=== PATIENT | female | born 1960 | race Caucasian/White ===

== ENCOUNTER → 2016-06-06 | Outpatient (CLI) | payer BC, OTHER ==
--- NOTE | 2016-06-06 10:46 | XR ---
EXAMINATION TYPE: XR shoulder complete BILAT DATE OF EXAM: 06/06/2016 10:35 AM COMPARISON: NONE HISTORY: Pain TECHNIQUE: Three views are submitted. FINDINGS: The osseous structures are intact. There is no acute fracture or dislocation. Moderate AC joint arth ropathy bilaterally. Mild glenohumeral arthropathy bilaterally. Sclerotic lesion right femoral diaphysis compatible with bone infarct. IMPRESSION: 1. The AC joint arthropathy bilaterally 2. Right humeral bone infarct
--- NOTE | 2016-06-06 10:50 | XR ---
EXAMINATION TYPE: XR hand complete RT DATE OF EXAM: 06/06/2016 10:35 AM COMPARISON: NONE HISTORY: Pain TECHNIQUE: Three views are submitted. FINDINGS: The osseous structures are intact. The joint spaces are preserved and there is no acute fracture or dislocation. IMPRESSION: 1. No definite acute fracture or dislocation if symptoms persist, follow-up study in 7 to 10 days wo uld be suggested
--- NOTE | 2016-06-06 10:55 | XR ---
EXAMINATION TYPE: XR foot complete bilateral DATE OF EXAM: 06/06/2016 10:35 AM COMPARISON: NONE HISTORY: Chronic pain TECHNIQUE: 3 views each foot. FINDINGS: Bilateral demonstrate severe arthropathy first MTP joint. Extensive postsurgical change involving the region of the tarsometatarsal junction within the ankle joint. Large plantar calcaneal spur bilatera lly. IMPRESSION: 1. Extensive postsurgical changes bilaterally with severe first MTP joint arthropathy bilaterally.
== END | disposition home or self-care (01) ==
LOC: RADXRMAIN 09:49
PROVIDERS: ATTEND Psychiatry & Neurology Neurology
DX: M19.012 Primary osteoarthritis, left shoulder (principal); M19.011 Primary osteoarthritis, right shoulder; M19.072 Primary osteoarthritis, left ankle and foot; M19.071 Primary osteoarthritis, right ankle and foot; M79.641 Pain in right hand
CPT/HCPCS: 97597

== ENCOUNTER → 2016-06-11 | Outpatient (CLI) | payer BC, OTHER ==
--- NOTE | 2016-06-11 22:52 | MR ---
EXAMINATION TYPE: MR robert/lspine wo con DATE OF EXAM: 06/11/2016 9:52 PM COMPARISON: CT abdomen pelvis January 06, 2016 HISTORY: Cervicalgia, Lumbago per order. Headaches with neck pain causing pain or weakness in right a rm and fingers per patient. Low back pain causing pain into bilateral buttocks thigh and calf per pat ient TECHNIQUE: Multiplanar, multisequence imaging of the cervical and lumbar spine are performed without IV contrast. FINDINGS: C-SPINE: FINDINGS: Sagittal images of the cervical spine show the craniocervical junction to appear within nor mal limits. The cervical and upper thoracic spinal cord is normal in caliber and signal. Vertebral alignment is straightened. The vertebral body heights are normal. There is mild disc space narrowing with moderate spurring C5-C6 and C6-C7 levels. Posterior disc herniations are effacing anterior thec al sac at these levels on sagittal images. The bone marrow signal intensity is within normal limits. Axial images show the C2-C3 and C3-C4 levels to appear within normal limits. Axial images at C4-C5 level show left marginal spurring causing asymmetric moderate left-sided neural foraminal narrowing on axial image 30, right-sided neural foramen is patent. Axial images at C5-C6 level show broad-based right paracentral disc protrusion effacing anterior thec al sac up to ventral surface of spinal cord with some marginal spurring causing advanced left and mil d to moderate right-sided neural foraminal narrowing. Axial images at C6-C7 level show broad-based left paracentral disc protrusion effacing anterior theca l sac up to ventral surface of spinal cord on axial image 13. There is moderate to severe left and mi ld to moderate right-sided neural foraminal narrowing at this level identified. Axial images at C7-T1 level are felt within normal limits. IMPRESSION: Straightening of cervical spine with multilevel degenerative changes as detailed above mo st prominent at C5-C6 and C6-C7 levels. L-SPINE: Sagittal images of the lumbar spine redemonstrates mild height loss or anterior wedging at L1 level. Alignment remains satisfactory. Multilevel disc desiccation is seen but disc space heights are fairly well-maintained. Small posterior disc herniations are seen L4-L5 and L5-S1 levels on sagittal images . The conus medullaris is normal in position and signal ending at inferior L1 vertebral body level. There is prominent hemangioma at T12 vertebral body level. There is mild to moderate multilevel anter ior spurring. Some heterogeneous endplate changes with increased T1 and T2 signal anterior superior L 2 and L3 vertebra consistent with Modic type II degenerative change is present. Axial images show the T12-L1, L1-L2, and L2-L3 levels all to appear within normal limits. Axial images at L3-L4 level show mild broad disc bulge and mild facet degenerative changes bilaterall y but spinal canal is preserved and bilateral neural foramina are patent. Axial images at L4-L5 level shows moderate facet degenerative changes and ligamentum flavum hypertrop hy with broad-based central disc protrusion effacing anterior thecal sac on axial image 8. Bilateral neural foramina are patent. Axial images at the L5-S1 level show mild facet degenerative changes bilaterally. There is small cent ral disc protrusion seen but spinal canal is preserved. Bilateral neural foramina are patent. There is left adrenal mass measuring 3.0 x 2.4 cm on axial image 30 likely stable in size from recent CT. IMPRESSION: Some multilevel degenerative changes in the lumbar spine most prominent in lower lumbar l evels with further details as noted in body of report.
== END | disposition home or self-care (01) ==
LOC: RADMRIMAIN 20:48
PROVIDERS: ATTEND Psychiatry & Neurology Pain Medicine
DX: M54.2 Cervicalgia (principal); M54.5 Low back pain
CPT/HCPCS: 72141; 72148

== ENCOUNTER 2016-06-22 09:58 | Day surgery (SDC) | payer BC, OTHER ==
--- NOTE | 2016-06-22 09:56 | P.GSHP ---
History of Present Illness H&P Date: 06/22/16 Chief Complaint: Ulceration abdominal wall This patient is status post colostomy for diverticulitis with abscess. The vagus colostomy site has never totally healed and remains a small draining fistulous ulcer. She also has a midline incisional hernia. - Constitutional Constitutional: Reports weakness, Denies chills, Denies fever - EENT Eyes: denies blurred vision, denies pain Ears, nose, mouth and throat: Denies headache, Denies sore throat - Cardiovascular Cardiovascular: Reports high blood pressure, Denies chest pain, Denies irregular heart beat, Denies orthopnea, Denies paroxysmal nocturnal dyspnea, Denies shortness of breath - Respiratory Respiratory: Denies cough, Denies hemoptysis - Gastrointestinal Gastrointestinal: Denies abdominal pain, Denies coffee ground emesis, Denies diarrhea, Denies hematemesis, Denies jaundice, Denies melena, Denies nausea, Denies vomiting - Genitourinary (Female) Genitourinary: Denies dysuria, Denies hematuria - Genitourinary (Male) Genitourinary: Denies dysuria, Denies hematuria - Musculoskeletal Comment: Patient is very poorly ambulatory secondary to numerous orthopedic issues both spinal and lower extremity. Musculoskeletal: Reports gait dysfunction, Denies myalgias - Integumentary Comment: Anterior abdominal wall fistulous track Integumentary: Denies pruritus, Denies rash - Neurological Neurological: Denies numbness, Denies weakness - Psychiatric Psychiatric: Denies anxiety, Denies depression - Endocrine Endocrine: Denies fatigue, Denies weight change - Hematologic/Lymphatic Hematologic/Lymphatic: Denies easy bleeding, Denies easy bruising, Denies lymphedema - Allergic/Immunologic Allergic/Immunologic: Denies anaphylaxis, Denies angioedema, Denies urticaria Past Medical History Past Medical History: Asthma, Diabetes Mellitus, Eye Disorder, GERD/Reflux, Hyperlipidemia, Hypertension, Osteoarthritis (OA), Pneumonia, Vascular Disorder Additional Past Medical History / Comment(s): IDDM type II, diverticulitis, diverticulosis,, 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 pt has allergy to dust,feathers and heavy scents like perfume/ cleaning, neuropathy bilateral hands and feet, superficial blood clots arms and legs-not DVTs. History of Any Multi-Drug Resistant Organisms: None Reported Past Surgical History: Appendectomy, Bowel Resection, Orthopedic Surgery Additional Past Surgical History / Comment(s): 9 foot sx-had bone deformities- had 2 tiny bone removed rt foot,has 11 screws lt foot and 9 screws in rt foot, egd, lt shoulder injured had arthroscopic sx and repaired ligamnets, removed bone spurs removed and repaired cartilage, rt hand 5th fingger-trigger finger sx , rt middle finger rt hand-benign tumor removed, laproscopy, fallopian tubes removed. 2 picc lines - since removed, 05/05/15 colectomy with colostomy, colostomy reversal, cryogenic tx for precancerous skin lesions. Past Anesthesia/Blood Transfusion Reactions: Family History of Problems w/ Anesthesia, Family Hisory of Malignant Hyperthermia, Postoperative Nausea & Vomiting (PONV) Additional Past Anesthesia/Blood Transfusion Reaction / Comment(s): cluasterphobia States her mother had malignant hyperthermia Past Psychological History: Depression Additional Psychological History / Comment(s): She lives with her significant other. She uses a walker with seat and wheels to ambulate. She has [facility] with a nurse coming once a week. Smoking Status: Former smoker Past Alcohol Use History: None Reported Additional Past Alcohol Use History / Comment(s): started smoking at age 10 smoked 1/2 -1 ppd, quit 2013 Past Drug Use History: None Reported - Past Family History Mother Family Medical History: Cancer, Thyroid Disorder Additional Family Medical History / Comment(s): thyroid/lung cancer. Mother of lung cancer at age 80 Father Family Medical History: Congestive Heart Failure (CHF), Diabetes Mellitus, Deep Vein Thrombosis (DVT), Pulmonary Embolus Additional Family Medical History / Comment(s): Father of diabetic complications at age 64. Medications and Allergies Home Medications Medication Instructions Recorded Confirmed Type Albuterol Sulfate [Proair Hfa] 2 puff INHALATION RT-Q6H PRN 04/07/15 06/20/16 History Ergocalciferol [Vitamin D2 50,000 unit PO TUTH 04/07/15 06/20/16 History (DRISDOL)] Montelukast [Singulair] 10 mg PO HS 04/07/15 06/20/16 History Triamterene-Hctz 75-50Mg [Maxzide 1 tab PO DAILY 04/07/15 06/20/16 History 75-50] glipiZIDE [Glucotrol XL] 5 mg PO BID 04/07/15 06/20/16 History metFORMIN HCL [metFORMIN HCL ER] 1,000 mg PO BID 04/07/15 06/20/16 History diphenhydrAMINE [Benadryl] 25 mg PO Q6H PRN 05/03/15 06/20/16 History Dicyclomine [Bentyl] 10 mg PO ACHS 07/19/15 06/20/16 History Fluticasone Propionate 2 spray EA NOSTRIL BID 07/19/15 06/20/16 History Glucerna Shake 1 can PO BID 07/19/15 06/20/16 History Morphine Sulfate ER [Ms Contin] 15 mg PO BID 07/19/15 06/20/16 History Nystatin 100,000 Unit/gm Powd 1 applic TOPICAL BID 07/19/15 06/20/16 History [Mycostatin Powder] Ondansetron [Zofran] 4 mg PO DAILY PRN 07/19/15 06/20/16 History Polyethylene Glycol 3350 [Miralax] 17 gm PO DAILY 05/02/16 06/20/16 History oxyCODONE-APAP 10-325MG [Percocet 1 tab PO DAILY PRN 05/02/16 06/20/16 History 10-325 mg] ALPRAZolam [Xanax] 1 mg PO BID 06/20/16 06/20/16 History Allergies Allergy/AdvReac Type Severity Reaction Status Date / Time adhesive tape Allergy Severe Itching Verified 06/20/16 12:22 aspirin Allergy Dyspnea Verified 06/20/16 12:22 ceftriaxone sodium Allergy Anaphylaxis Verified 06/20/16 12:22 [From Rocephin] cephalexin monohydrate Allergy Anaphylaxis Verified 06/20/16 12:22 [From Keflex] Penicillins Allergy Anaphylaxis Verified 06/20/16 12:22 Surgical - Exam Osteopathic Statement: *. No significant issues noted on an osteopathic structural exam other than those noted in the History and Physical/Consult. - General well developed, well nourished, no distress, obese - Eyes normal ocular movement, no icteric - ENT no hearing loss, no congestion - Neck no masses, no bruits, trachea midline - Respiratory normal expansion, normal respiratory effort, clear to auscultation - Cardiovascular Rhythm: regular - Abdomen Abdomen: soft, non tender, no guarding, no rigid, no rebound - Integumentary Patient has a 0.5 x 0.5 cm ulceration in the anterior abdominal wall which probes to 2 and half centimeters. There is very mild serous drainage no rash, no abnormal pigmentation - Neurologic no disoriented, no combative - Musculoskeletal Patient is minimally ambulatory due to movement numerous musculoskeletal issues - Psychiatric oriented to time, oriented to person, oriented to place, speech is normal, memory intact Assessment and Plan (1) Abdominal wall ulcer Status: Acute Plan: We've discussed with the patient the options. Our plan for today is to excise the fistulous tract which appears to be fairly superficial and to remove the non -healthy granulation tissue and preferably do a primary closure. This does appear to be very separate from her abdominal incisional hernia. We see no evidence of connection to deeper tissues. Patient appears understand the procedures risks and wishes to proceed.
[~2016-06-22 09:58] MED LIST: CLINDAMYCIN 900 MG in DEXTROSE 5% IN WATER 50 ML IVPB ONE; DEXAMETHASONE SOD PHOSPHATE 10 MG/ML 1 ML VIAL IV ONE; GENTAMICIN 320 MG in SODIUM CHLORIDE 0.9% 100 ML IVPB ONE; LACTATED RINGERS 1,000 ML IV SCH; LIDOCAINE 1% 20 ML VIAL (10MG/ML) FOR IV START INTRADERMA PRN; MIDAZOLAM 2 MG/2 ML VIAL IV PRN; ONDANSETRON 4 MG/2 ML VIAL IVP ONE; SCOPOLAMINE 1.5MG/72HR PATCH TRANSDERM ONE
[2016-06-22 10:29] LABS: Glucose,Whole Blood 153 mg/dL (75-99)
[2016-06-22 10:30] VITALS: RESP 16
[2016-06-22] MEDS ORDERED: LIDOCAINE 1% 20 ML VIAL (10MG/ML) FOR IV START INTRADERMA ONE (10:32)
[2016-06-22] MEDS ORDERED: PROPOFOL 10 MG/ML 20 ML VIAL IV ONE (10:50)
[2016-06-22] MEDS ORDERED: MIDAZOLAM 2 MG/2 ML VIAL ONE (10:50)
[2016-06-22] MEDS ORDERED: fentaNYL (PF) 50 MCG/ML 2 ML AMP ONE (10:50)
--- NOTE | 2016-06-22 11:37 | P.PCN ---
Date of Procedure: 06/22/16 Preoperative Diagnosis: Nonhealing fistulous ulceration anterior abdominal wall Postoperative Diagnosis: Same Procedure(s) Performed: Excision of fistulous tract/debridement anterior abdominal wall with primary closure Anesthesia: MAC Surgeon: Dejuan Toledo IV fluids (ml): 30 Pathology: other (Fistulous tract sent for cultures) Condition: stable Disposition: PACU Indications for Procedure: Patient has a chronic unresolving ulcer of the left anterior abdominal wall. Operative Findings: We excised the entire fistulous tract. The surrounding tissues appeared healthy without obvious evidence of external source for the fistulous tract except within the excised tissue. Description of Procedure: With the patient supine position, under benefit of IV sedation, we prepped and draped in standard fashion. We made an elliptical incision around the fistulous tract horizontally. We took this sharply down through fatty tissues on both sides. This was then carried on further with electrocautery until we reached an area just superficial to the fascia. We then completely excised the entire cone of tissue. Hemostasis was accomplished with electrocautery and was excellent. The fatty tissue was approximated with 4-0 Vicryl interrupted stitches. The skin was approximated with 4-0 Vicryl subcuticular. Sterile dressings were applied. The patient tolerated the procedure well and was to taken to the recovery room in stable condition.
[2016-06-22 11:38] VITALS: TEMP 97.5
[2016-06-22 11:42] LABS: Glucose,Whole Blood 143 mg/dL (75-99)
[2016-06-22] MEDS: HYDROmorphone 1 MG/ML 1 ML SYRINGE IVP PRN ×4 (11:42→11:54)
[2016-06-22] MEDS ORDERED: diphenhydrAMINE 50 MG/ML 1 ML VIAL IVP ONE (11:52)
[2016-06-22 13:20] VITALS: BP 114/71; PULSE 56
== END 2016-06-22 13:26 | disposition home or self-care (01) ==
LOC: OR 09:58
PROVIDERS: ATTEND Thoracic Surgery (Cardiothoracic Vascular Surgery)
DX: L98.499 Non-pressure chronic ulcer of skin of other sites with unspecified severity (principal); J45.909 Unspecified asthma, uncomplicated; E11.9 Type 2 diabetes mellitus without complications; K21.9 Gastro-esophageal reflux disease without esophagitis; E78.5 Hyperlipidemia, unspecified; I10 Essential (primary) hypertension; M19.90 Unspecified osteoarthritis, unspecified site; G89.29 Other chronic pain; Z79.84 Long term (current) use of oral hypoglycemic drugs; Z79.891 Long term (current) use of opiate analgesic; Z79.899 Other long term (current) drug therapy; Z88.1 Allergy status to other antibiotic agents; Z88.0 Allergy status to penicillin; Z88.8 Allergy status to other drugs, medicaments and biological substances; Z91.048 Other nonmedicinal substance allergy status; Z87.891 Personal history of nicotine dependence
CPT/HCPCS: 87070; 87205; 87075; 11042; J2250; J1200; J1100; J2405; J3010; J1580; J1170; J2704

== ENCOUNTER 2016-08-23 14:17 | Inpatient (IN) | payer OTHER ==
[2016-08-23 15:54] LABS: Basophils % (A) 0 %; CH 32.4; CHCM 34.9; Eosinophils # (A) 0.2 k/uL (0-0.7); Eosinophils % (A) 2 %; HCT 39.8 % (34.0-46.0); HDW 2.84; HGB 13.7 gm/dL (11.4-16.0); Luc # (Auto) 0.39; Luc % (Auto) 4; Lymphocytes # (A) 2.2 k/uL (1.0-4.8); Lymphocytes % (A) 21 %; MCH 32.2 pg (25.0-35.0); MCHC 34.4 g/dL (31.0-37.0); MCV 93.3 fL (80.0-100.0); Mean Platelet Volume 7.3; Monocytes # (A) 0.5 k/uL (0-1.0); Monocytes % (A) 5 %; Neutrophils # (A) 6.9 k/uL (1.3-7.7); Neutrophils % (A) 68 %; RBC 4.27 m/uL (3.80-5.40); WBC 10.2 k/uL (3.8-10.6); WBC (Perox) 10.68
[2016-08-23 16:04] LABS: Potassium 3.7 mmol/L (3.5-5.1); Total Bilirubin 0.6 mg/dL (0.2-1.3); Total Protein 8.3 g/dL (6.3-8.2)
[2016-08-23] MEDS: MORPHINE SULFATE 2 MG/ML SYRINGE IVP PRN ×2 (16:14→20:38)
[2016-08-23] MEDS: SODIUM CHLORIDE 0.9% 1,000 ML IV SCH (16:15)
[2016-08-23] MEDS ORDERED: diphenhydrAMINE 50 MG/ML 1 ML VIAL IVP PRN (16:27)
[2016-08-23] MEDS ORDERED: RX INFO: IV CONTRAST WAS GIVEN 1 EACH MISC MISCELLANE PRN (16:28)
[2016-08-23 16:35] LABS: Glucose,Whole Blood 106 mg/dL (75-99)
[2016-08-23] MEDS: IOHEXOL 350 MG/ML 25 ML BOTTLE (ORAL USE) PO PRN ×2 (16:59→18:23)
[2016-08-23 17:32] VITALS: BMI 32.9
[2016-08-23 19:51] LABS: Hemoglobin A1C 6.5 % (4.2-6.1)
[2016-08-23 20:03] LABS: Glucose,Whole Blood 96 mg/dL (75-99)
--- NOTE | 2016-08-23 20:03 | CT ---
EXAMINATION TYPE: CT abdomen pelvis wo/w con DATE OF EXAM: 08/23/2016 7:33 PM COMPARISON: 01/06/2016 HISTORY: Possible abscess or ileus. Left lower quadrant pain with diarrhea. Known pancreatic and adre nal mass. CT DLP: 2062.70 mGycm Automated exposure control for dose reduction was used. TECHNIQUE: Helical acquisition of images was performed from the lung bases through the pelvis. CONTRAST: Performed with Oral Contrast and without and with IV Contrast, patient injected with 80 mL of Visipaq ue 320. FINDINGS: Lung bases are clear of infiltrate. There is no pleural effusion. There is slight decreased density i n the liver consistent with some fatty infiltration. Spleen appears normal. I see no pancreatic mass. Gallbladder appears normal. Bile ducts are not dilated. There is a 3.5 cm rounded mass on the left a drenal gland. There is no hydronephrosis. Kidneys have normal size and contour. There is no retroperi toneal adenopathy. There is ventral hernia that contains loops of bowel. There is no evidence of inca rceration. There is no ascites. Bladder is almost empty. There is deformity of mid sigmoid colon with surgical clips. There is a short segment of mildly dilated sigmoid colon. This measures 5 cm. Dilati on is decreased compared to old CT scan. This measures 6.5 cm on the old exam. There is evidence of s mall right renal cortical cysts. There is no ascites. I see no bony destructive process. There is 20% compression of the L1 vertebra. This is unchanged. There appears to be some diffuse wall thickening involving the cecum and proximal ascending colon. So me of this could be retained fecal material. IMPRESSION: THERE IS OLD MILD COMPRESSION FRACTURE OF L1 WITHOUT CHANGE. THERE IS A SHORT SEGMENT OF MILDLY DILATED SIGMOID COLON THAT IS IMPROVED COMPARED TO LAST EXAM. KATHYA ELATION WITH SURGICAL HISTORY IS RECOMMENDED. LARGE BROAD-BASED VENTRAL HERNIA WITHOUT EVIDENCE OF INCARCERATION WITHOUT SIGNIFICANT CHANGE. POSSIBLE WALL THICKENING INVOLVING THE CECUM. THIS COULD BE A CHANGE COMPARED TO LAST EXAM. REPEAT EX AM WITH BETTER BOWEL PREPARATION WOULD BE HELPFUL IF CLINICALLY INDICATED. CECAL EDEMA CANNOT BE EXCL UDED. FATTY INFILTRATION OF THE LIVER. STABLE LEFT ADRENAL MASS HAS RELATIVELY LOW DENSITY AND WOULD BE CON SISTENT WITH BENIGN TUMOR. SMALL RIGHT RENAL CYSTS.
[2016-08-23 21:57] LABS: Appearance,Urine Clear (Clear); Bilirubin,Urine Negative (Negative); Glucose,Urine (UA) Negative (Negative); Ketones,Urine Negative (Negative); Leukocyte Esterase,Urine Negative (Negative); Nitrite,Urine Negative (Negative); PH, Urine 5.5 (5.0-8.0); Protein,Urine Trace (Negative); UA Billing (MACRO vs. MICRO) CHEM; Urobilinogen,Urine <2.0 mg/dL (<2.0)
[2016-08-23 22:03] LABS: Specific Gravity,Urine >1.050 (1.001-1.035)
[2016-08-23] MEDS: ONDANSETRON 4 MG/2 ML VIAL IVP PRN (22:21)
[2016-08-23] MEDS: FAMOTIDINE 20 MG/2 ML VIAL IV SCH (22:25)
[2016-08-23 23:57] LABS: Glucose,Whole Blood 100 mg/dL (75-99)
[2016-08-24] MEDS: INSULIN LISPRO (humaLOG) 300 UNIT/3 ML VIAL SQ SCH ×5 (00:04→21:12)
[2016-08-24] MEDS: MORPHINE SULFATE 2 MG/ML SYRINGE IVP PRN ×2 (03:51→08:44)
[2016-08-24] MEDS: ONDANSETRON 4 MG/2 ML VIAL IVP PRN ×3 (04:01→22:53)
[2016-08-24] MEDS: SODIUM CHLORIDE 0.9% 1,000 ML IV SCH ×2 (04:08→16:30)
[2016-08-24 05:59] LABS: Glucose,Whole Blood 131 mg/dL (75-99)
[2016-08-24 07:42] LABS: Basophils % (A) 0 %; CH 32.2; CHCM 33.4; Eosinophils # (A) 0.2 k/uL (0-0.7); Eosinophils % (A) 3 %; HCT 39.1 % (34.0-46.0); HDW 2.66; HGB 13.3 gm/dL (11.4-16.0); Luc # (Auto) 0.31; Luc % (Auto) 4; Lymphocytes % (A) 25 %; MCH 33.1 pg (25.0-35.0); MCHC 34.2 g/dL (31.0-37.0); MCV 96.8 fL (80.0-100.0); Mean Platelet Volume 7.7; Monocytes # (A) 0.5 k/uL (0-1.0); Monocytes % (A) 6 %; Neutrophils # (A) 4.9 k/uL (1.3-7.7); Neutrophils % (A) 62 %; RBC 4.04 m/uL (3.80-5.40); RDW 13.2 % (11.5-15.5); WBC 7.9 k/uL (3.8-10.6); WBC (Perox) 8.13
[2016-08-24] MEDS: FAMOTIDINE 20 MG/2 ML VIAL IV SCH (08:44)
[2016-08-24] MEDS ORDERED: ALBUTEROL NEBULIZED 2.5 MG/3 ML INHALATION PRN (09:16)
[2016-08-24] MEDS: oxyCODONE-APAP 10-325MG 1 EACH TAB PO PRN ×3 (10:43→22:53)
[2016-08-24 11:44] LABS: Glucose,Whole Blood 165 mg/dL (75-99)
[2016-08-24] MEDS ORDERED: FLUTICASONE 50MCG/SPRAY NASAL 16GM EA NOSTRIL PRN ×2 (11:49→12:02)
[2016-08-24] MEDS: DICYCLOMINE 20 MG TAB PO SCH ×3 (12:25→20:19)
[2016-08-24] MEDS ORDERED: MORPHINE SULFATE ER 15 MG TABLET PO ONE (12:29)
[2016-08-24] MEDS ORDERED: METHYL SALICYLATE/MENTHOL CREAM 5 OZ TOPICAL PRN (12:58)
--- NOTE | 2016-08-24 14:17 | P.GSCN ---
History of Present Illness Consult date: 08/24/16 Reason for Consult: Abdominal pain Requesting physician: Junior Delgado History of present illness: A 56-year-old female being seen at the request of the attending for surgical eval in a patient with a chief complaint of abdominal pain with a large ventral hernia. Patient states that she was being seen in Dr. Delgado's office on the . Patient stated the office visit was to be evaluated for patient having episodes of abdominal distention felt like it was due to the ventral hernia. Had been ongoing for several weeks. Patient stated that she was seen in the office was advised admission to the hospital to be worked up for the large ventral hernia. Patient did have a CAT scan done on the 23 of August that showed a large ventral hernia without evidence of incarceration without any significant change. Patient states has been followed by Dr. Priest at the wound care center was seen on July 10 for debridement of an ulcer on the sacral coccyx area. Additionally patient states that she has had a ventral hernia but has noted over the last several weeks with any activity "it bulges out" patient stated that she was told to wear an abdominal binder did attempt to obtain a binder but it did not fit properly so she has not did not wear it patient denies any nausea vomiting or change in bowel habits Patient has multiple medical problems has an extensive surgical history. On 07/2015 patient had a colectomy with a colostomy for perforated diverticulitis. Patient underwent a reversal of colostomy done done on 07/22/2015 patient developed a small decubitus ulcer in May 2016 was followed by the wound care center with Dr. 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 pt has allergy to dust,feathers and heavy scents like perfume/ cleaning, neuropathy bilateral hands and feet, superficial blood clots arms and legs-not DVTs. WOUND TO COCCYX History of Any Multi-Drug Resistant Organisms: None Reported Past Surgical History: Appendectomy, Bowel Resection, Orthopedic Surgery Additional Past Surgical History / Comment(s): 9 foot sx-had bone deformities- had 2 tiny bone removed rt foot,has 11 screws lt foot and 9 screws in rt foot, egd, lt shoulder injured had arthroscopic sx and repaired ligamnets, removed bone spurs removed and repaired cartilage, rt hand 5th fingger-trigger finger sx , rt middle finger rt hand-benign tumor removed, laproscopy, fallopian tubes removed. 2 picc lines - since removed, 05/05/15 colectomy with colostomy, colostomy reversal, cryogenic tx for precancerous skin lesions. Ostomy site surgically closed Past Anesthesia/Blood Transfusion Reactions: Family History of Problems w/ Anesthesia, Postoperative Nausea & Vomiting (PONV) Additional Past Anesthesia/Blood Transfusion Reaction / Comm: claustrophobia Past Psychological History: Depression Additional Psychological History / Comment(s): She lives with her significant other. She uses a cane/ walker/wheelchair with seat and wheels to ambulate. She has [facility] with a nurse coming once a week. Smoking Status: Former smoker Past Alcohol Use History: None Reported Additional Past Alcohol Use History / Comment(s): started smoking at age 10 smoked 1/2 -1 ppd, quit 2013 Past Drug Use History: None Reported - Past Family History Mother Family Medical History: Cancer, Thyroid Disorder Additional Family Medical History / Comment(s): thyroid/lung cancer. Mother of lung cancer at age 80 Father Family Medical History: Congestive Heart Failure (CHF), Diabetes Mellitus, Deep Vein Thrombosis (DVT), Pulmonary Embolus Additional Family Medical History / Comment(s): Father of diabetic complications at age 64. Medications and Allergies Home Medications Medication Instructions Recorded Confirmed Type Ergocalciferol [Vitamin D2 50,000 unit PO TUTH 04/07/15 08/23/16 History (DRISDOL)] Montelukast [Singulair] 10 mg PO HS 04/07/15 08/23/16 History Triamterene-Hctz 75-50Mg [Maxzide 1 tab PO DAILY 04/07/15 08/23/16 History 75-50] glipiZIDE [Glucotrol XL] 5 mg PO BID 04/07/15 08/23/16 History Dicyclomine [Bentyl] 5 mg PO ACHS 07/19/15 08/23/16 History Fluticasone Propionate 2 spray EA NOSTRIL BID PRN 07/19/15 08/23/16 History Morphine Sulfate ER [Ms Contin] 15 mg PO BID 07/19/15 08/23/16 History Ondansetron [Zofran] 4 mg PO BID 07/19/15 08/23/16 History ALPRAZolam [Xanax] 1 mg PO BID 06/20/16 08/23/16 History Insulin Glargine,Hum.rec.anlog 15 units SQ HS 07/26/16 08/23/16 History [Togiuliana Solostar] metFORMIN HCL [Metformin HCl] 1,000 mg PO BID 08/23/16 08/23/16 History oxyCODONE-APAP 10-325MG [Percocet 1 tab PO QID PRN 08/23/16 08/23/16 History 10-325 mg] Allergies Allergy/AdvReac Type Severity Reaction Status Date / Time adhesive tape Allergy Severe Itching Verified 08/23/16 15:56 asparagus Allergy Wheezing Verified 08/23/16 15:56 aspirin Allergy Dyspnea Verified 08/23/16 15:56 ceftriaxone sodium Allergy Anaphylaxis Verified 08/23/16 15:56 [From Rocephin] cephalexin monohydrate Allergy Anaphylaxis Verified 08/23/16 15:56 [From Keflex] Penicillins Allergy Anaphylaxis Verified 08/23/16 15:56 perfume Allergy Wheezing Verified 08/23/16 15:56 DUST Allergy Wheezing Uncoded 08/23/16 15:56 HAY Allergy Wheezing Uncoded 08/23/16 15:56 Surgical - Exam Vital Signs Temp Pulse Resp BP Pulse Ox 98.3 F 99 16 129/78 98 08/23/16 15:00 08/23/16 15:00 08/23/16 15:00 08/23/16 15:00 08/23/16 15:00 GENERAL APPEARANCE: 56-year-old female patient is alert, oriented, in no acute distress. Up ambulating once in the hallway with a walker VITAL SIGNS: Reviewed HEENT: Head is normocephalic and atraumatic. Pupils are equal and reactive. The nares are patent. Oropharynx is clear without lesions. NECK: Supple without lymphadenopathy. Traches midline. HEART: S1, S2. Regular rate and rhythm. Denying chest pain no murmur LUNGS: No crackles or wheezes are heard. Adequate air movement on room air ABDOMEN: Soft, nontender, nondistended with good bowel sounds. No peritoneal signs. No palpable organomegaly or masses. Large ventral hernia without evidence of incarceration noted EXTREMITIES: Normal skin color and turgor. No cyanosis, rash, ulceration, clubbing or edema. Radial pedal pulses are 2/4 bilaterally. NEUROLOGICAL: No focal deficits. Strength and sensation are grossly intact. Results - Labs 08/24/16 06:21 08/23/16 15:35 Abnormal Lab Results - Last 24 Hours (Table) 08/23/16 08/23/16 08/23/16 Range/Units 15:35 15:35 16:32 BUN 30 H (7-17) mg/dL Creatinine 1.14 H (0.52-1.04) mg/dL Glucose 122 H (74-99) mg/dL POC Glucose (mg/dL) 106 H (75-99) mg/dL Hemoglobin A1c 6.5 H (4.2-6.1) % Total Protein 8.3 H (6.3-8.2) g/dL Ur Specific [place] (1.001-1.035) Urine Protein (Negative) 08/23/16 08/23/16 08/24/16 Range/Units 21:25 23:56 05:57 BUN (7-17) mg/dL Creatinine (0.52-1.04) mg/dL Glucose (74-99) mg/dL POC Glucose (mg/dL) 100 H 131 H (75-99) mg/dL Hemoglobin A1c (4.2-6.1) % Total Protein (6.3-8.2) g/dL Ur Specific [place] >1.050 H (1.001-1.035) Urine Protein Trace H (Negative) 08/24/16 Range/Units 11:42 BUN (7-17) mg/dL Creatinine (0.52-1.04) mg/dL Glucose (74-99) mg/dL POC Glucose (mg/dL) 165 H (75-99) mg/dL Hemoglobin A1c (4.2-6.1) % Total Protein (6.3-8.2) g/dL Ur Specific [place] (1.001-1.035) Urine Protein (Negative) Diabetes panel 08/23/16 08/23/16 Range/Units 15:35 15:35 Sodium 140 (137-145) mmol/L Potassium 3.7 (3.5-5.1) mmol/L Chloride 101 (98-107) mmol/L Carbon Dioxide 24 (22-30) mmol/L BUN 30 H (7-17) mg/dL Creatinine 1.14 H (0.52-1.04) mg/dL Glucose 122 H (74-99) mg/dL Hemoglobin A1c 6.5 H (4.2-6.1) % Calcium 10.0 (8.4-10.2) mg/dL AST 23 (14-36) U/L ALT 32 (9-52) U/L Alkaline Phosphatase 82 (38-126) U/L Total Protein 8.3 H (6.3-8.2) g/dL Albumin 4.7 (3.5-5.0) g/dL Calcium panel 08/23/16 Range/Units 15:35 Calcium 10.0 (8.4-10.2) mg/dL Albumin 4.7 (3.5-5.0) g/dL Pituitary panel 08/23/16 Range/Units 15:35 Sodium 140 (137-145) mmol/L Potassium 3.7 (3.5-5.1) mmol/L Chloride 101 (98-107) mmol/L Carbon Dioxide 24 (22-30) mmol/L BUN 30 H (7-17) mg/dL Creatinine 1.14 H (0.52-1.04) mg/dL Glucose 122 H (74-99) mg/dL Calcium 10.0 (8.4-10.2) mg/dL Adrenal panel 08/23/16 Range/Units 15:35 Sodium 140 (137-145) mmol/L Potassium 3.7 (3.5-5.1) mmol/L Chloride 101 (98-107) mmol/L Carbon Dioxide 24 (22-30) mmol/L BUN 30 H (7-17) mg/dL Creatinine 1.14 H (0.52-1.04) mg/dL Glucose 122 H (74-99) mg/dL Calcium 10.0 (8.4-10.2) mg/dL Total Bilirubin 0.6 (0.2-1.3) mg/dL AST 23 (14-36) U/L ALT 32 (9-52) U/L Alkaline Phosphatase 82 (38-126) U/L Total Protein 8.3 H (6.3-8.2) g/dL Albumin 4.7 (3.5-5.0) g/dL Assessment and Plan Plan: Impression Present on admission a large ventral hernia without evidence of incarceration as evident on a CAT scan of the abdomen pelvis August 23 History of diverticulitis reversal of colostomy May 2015 Physically debilitated chronic use of a walker Remote history of tobacco abuse 1 pack a day 2011 Leukocytosis History of a diverticular abscess within the sigmoid colon Debridement of the ulcer on the coccyx 07/10/2016 Type 2 diabetes insulin requiring Obesity BMI 32 Plan Pain control Resume home meds as appropriate DVT and GI prophylaxis Repeat labs in the morning Further surgical recommendations pending eval by Dr. Merida wear abdominal binder when up Bladder scan after each void Monitor blood sugars address as indicated The above dictated assessment and findings were discussed with dr merida Impression and the plan of care have been dictated as directed. Ginger Lockwood nurse practitioner acting as a scribe for dr merida
--- NOTE | 2016-08-24 14:37 | P.HPIM ---
History of Present Illness H&P Date: 08/24/16 Chief Complaint: Abdominal pain This is a 56-year-old female patient being evaluated and examined today on the third floor. This patient was sent over directly from Dr. Delgado's office yesterday 08/23/2016 with abdominal distention and pain. Dr. Delgado felt that the distention was due to the ventral hernia and had been going on for several weeks. Patient did have a CAT scan done on the that did show a large ventral hernia without evidence of incarceration, without any significant changes. Patient is also seen in the wound center for a sacral coccyx wound. Patient has multiple medical problems has an extensive surgical history. On 07/2015 patient had a colectomy with a colostomy for perforated diverticulitis. Patient underwent a reversal of colostomy done done on 07/22/2015 patient developed a small decubitus ulcer in May 2016 was followed by the wound care center with Dr. Soliz. Supposedly the patient was supposed to wear an abdominal binder for her ventral hernia however she stated she had like the way of it so she won't wear it. Upon examination the patient's resting up in chair on room air she denies any shortness of breath cough or congestion at this time. She feels her abdominal pain has decreased somewhat since yesterday. Patient has Dr. Soliz on for surgical services. Review of Systems 14 point review of systems was completed and is negative other than what's noted in HPI. 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 pt has allergy to dust,feathers and heavy scents like perfume/ cleaning, neuropathy bilateral hands and feet, superficial blood clots arms and legs-not DVTs. WOUND TO COCCYX History of Any Multi-Drug Resistant Organisms: None Reported Past Surgical History: Appendectomy, Bowel Resection, Orthopedic Surgery Additional Past Surgical History / Comment(s): 9 foot sx-had bone deformities- had 2 tiny bone removed rt foot,has 11 screws lt foot and 9 screws in rt foot, egd, lt shoulder injured had arthroscopic sx and repaired ligamnets, removed bone spurs removed and repaired cartilage, rt hand 5th fingger-trigger finger sx , rt middle finger rt hand-benign tumor removed, laproscopy, fallopian tubes removed. 2 picc lines - since removed, 05/05/15 colectomy with colostomy, colostomy reversal, cryogenic tx for precancerous skin lesions. Ostomy site surgically closed Past Anesthesia/Blood Transfusion Reactions: Family History of Problems w/ Anesthesia, Postoperative Nausea & Vomiting (PONV) Additional Past Anesthesia/Blood Transfusion Reaction / Comment(s): claustrophobia Past Psychological History: Depression Additional Psychological History / Comment(s): She lives with her significant other. She uses a cane/ walker/wheelchair with seat and wheels to ambulate. She has [facility] with a nurse coming once a week. Smoking Status: Former smoker Past Alcohol Use History: None Reported Additional Past Alcohol Use History / Comment(s): started smoking at age 10 smoked 1/2 -1 ppd, quit 2013 Past Drug Use History: None Reported - Past Family History Mother Family Medical History: Cancer, Thyroid Disorder Additional Family Medical History / Comment(s): thyroid/lung cancer. Mother of lung cancer at age 80 Father Family Medical History: Congestive Heart Failure (CHF), Diabetes Mellitus, Deep Vein Thrombosis (DVT), Pulmonary Embolus Additional Family Medical History / Comment(s): Father of diabetic complications at age 64. Medications and Allergies Home Medications Medication Instructions Recorded Confirmed Type Ergocalciferol [Vitamin D2 50,000 unit PO TUTH 04/07/15 08/23/16 History (DRISDOL)] Montelukast [Singulair] 10 mg PO HS 04/07/15 08/23/16 History Triamterene-Hctz 75-50Mg [Maxzide 1 tab PO DAILY 04/07/15 08/23/16 History 75-50] glipiZIDE [Glucotrol XL] 5 mg PO BID 04/07/15 08/23/16 History Dicyclomine [Bentyl] 5 mg PO ACHS 07/19/15 08/23/16 History Fluticasone Propionate 2 spray EA NOSTRIL BID PRN 07/19/15 08/23/16 History Morphine Sulfate ER [Ms Contin] 15 mg PO BID 07/19/15 08/23/16 History Ondansetron [Zofran] 4 mg PO BID 07/19/15 08/23/16 History ALPRAZolam [Xanax] 1 mg PO BID 06/20/16 08/23/16 History Insulin Glargine,Hum.rec.anlog 15 units SQ HS 07/26/16 08/23/16 History [Skylar Zavala] metFORMIN HCL [Metformin HCl] 1,000 mg PO BID 08/23/16 08/23/16 History oxyCODONE-APAP 10-325MG [Percocet 1 tab PO QID PRN 08/23/16 08/23/16 History 10-325 mg] Allergies Allergy/AdvReac Type Severity Reaction Status Date / Time adhesive tape Allergy Severe Itching Verified 08/23/16 15:56 asparagus Allergy Wheezing Verified 08/23/16 15:56 aspirin Allergy Dyspnea Verified 08/23/16 15:56 ceftriaxone sodium Allergy Anaphylaxis Verified 08/23/16 15:56 [From Rocephin] cephalexin monohydrate Allergy Anaphylaxis Verified 08/23/16 15:56 [From Keflex] Penicillins Allergy Anaphylaxis Verified 08/23/16 15:56 perfume Allergy Wheezing Verified 08/23/16 15:56 DUST Allergy Wheezing Uncoded 08/23/16 15:56 HAY Allergy Wheezing Uncoded 08/23/16 15:56 Physical Exam Vitals: Vital Signs Temp Pulse Pulse Resp BP BP Pulse Ox 08/24/16 11:08 84 08/24/16 10:53 84 08/24/16 08:00 78 14 08/24/16 07:00 98.8 F 78 14 134/77 95 08/24/16 01:08 98.3 F 83 17 124/72 96 08/23/16 20:00 99.1 F 85 16 142/85 97 08/23/16 15:00 98.3 F 99 16 129/78 98 Intake and Output 08/23/16 08/24/16 08/24/16 22:59 06:59 14:59 Intake Total 600 Balance 600 Intake: IV 600 Sodium Chloride 0.9% 1, 600 000 ml @ 75 mls/hr IV . [id number] [facility] Rx#:[id number] Other: Voiding Method Toilet Toilet # Voids 1 3 2 # Bowel Movements 1 1 1 Weight 83.915 kg 83.915 kg Patient Weight 08/25/16 06:59 Weight 83.915 kg GENERAL EXAM: Alert, active, comfortable in no apparent distress. HEAD: Normocephalic. EYES: Normal reaction of pupils, equal size. NOSE: Clear with pink turbinates. THROAT: No erythema or exudates. NECK: No masses, no JVD. CHEST: No chest wall deformity. LUNGS: Equal air entry with no crackles, wheeze, rhonchi or dullness. CVS: S1 and S2 normal with no audible mumurs, regular rhythm. ABDOMEN: No hepatosplenomegaly, normal bowel sounds, no guarding or rigidity. Large ventral hernia present. EXTREMITIES: No edema noted, pedal pulses palpable. SKIN: No rashes CENTRAL NERVOUS SYSTEM: No focal deficits, tone is normal in all 4 extremities. Results CBC & Chem 7: 08/24/16 06:21 08/23/16 15:35 Labs: Abnormal Lab Results - Last 24 Hours (Table) 08/23/16 08/23/16 08/23/16 Range/Units 15:35 15:35 16:32 BUN 30 H (7-17) mg/dL Creatinine 1.14 H (0.52-1.04) mg/dL Glucose 122 H (74-99) mg/dL POC Glucose (mg/dL) 106 H (75-99) mg/dL Hemoglobin A1c 6.5 H (4.2-6.1) % Total Protein 8.3 H (6.3-8.2) g/dL Ur Specific [place] (1.001-1.035) Urine Protein (Negative) 08/23/16 08/23/16 08/24/16 Range/Units 21:25 23:56 05:57 BUN (7-17) mg/dL Creatinine (0.52-1.04) mg/dL Glucose (74-99) mg/dL POC Glucose (mg/dL) 100 H 131 H (75-99) mg/dL Hemoglobin A1c (4.2-6.1) % Total Protein (6.3-8.2) g/dL Ur Specific [place] >1.050 H (1.001-1.035) Urine Protein Trace H (Negative) 08/24/16 Range/Units 11:42 BUN (7-17) mg/dL Creatinine (0.52-1.04) mg/dL Glucose (74-99) mg/dL POC Glucose (mg/dL) 165 H (75-99) mg/dL Hemoglobin A1c (4.2-6.1) % Total Protein (6.3-8.2) g/dL Ur Specific [place] (1.001-1.035) Urine Protein (Negative) CT scan - abdomen: report reviewed Thrombosis Risk Factor Assmnt - DVT/VTE Prophylaxis DVT/VTE Prophylaxis: Mechanical Prophylaxis ordered, Low risk, early ambulation encouraged - Choose All That Apply Each Factor Represents 1 point: Age 41-60 years, Obesity (BMI >25) Thrombosis Risk Factor Assessment Total Risk Factor Score: 2 Thrombosis Risk Factor Assessment Level: Low Risk Assessment and Plan Plan: Assessment POA large ventral hernia without evidence of incarceration History of diverticulitis reversal of colostomy May 2015 Medical debility Leukocytosis History of diverticular abscess within the sigmoid colon Treatment of coccyx ulcer 07/10/2016 Diabetes mellitus type 2 Plan Medications have been reviewed and will be continued as ordered. Continue with pulmonary hygiene, coughing and deep breathing exercises, and supportive care. Supplemental oxygen to maintain oxygen saturations of 92% or better. Encourage ambulation. Consult to Dr. Soliz, appreciate recommendations. Patient to wear abdominal binder when up. Diet per surgical services currently on clear liquids. Continue nebulizer treatments. GI and DVT prophylaxis. We will continue to monitor labs/results and adjust treatment as necessary. Further recommendations pending. I performed an examination of the patient and discussed their management with the nurse practitioner. I have reviewed the nurse practitioner's note and agree with the documented findings and plan of care. We are covering for Dr. Delgado today.
--- NOTE | 2016-08-24 16:01 | P.PN ---
Subjective Principal diagnosis: Abdominal pain , diarrhea 48-year-old female with ventral hernia. She is doing well at this time pain control. Majority of the pain is from [place] issues. She does have occasional abdominal pain and distention. She has taken a picture when she had significant abdominal distention. She is passing gas and having bowel movements. At this time. She's now with an abdominal binder even though its been ordered. No nausea vomiting today. She is passing flatus. She has multiple severe problems including his disorders which will require hip surgery. Due to the chronic pain problems or problems she has not been working for a while. Objective - Vital Signs Vital signs: Vital Signs Temp 98.4 F 08/24/16 14:48 Pulse 74 08/24/16 14:48 Resp 16 08/24/16 14:48 BP 151/78 08/24/16 14:48 Pulse Ox 98 08/24/16 14:48 Intake & Output 08/23/16 08/24/16 08/24/16 18:59 06:59 18:59 Intake Total 600 600 Balance 600 600 Weight 83.915 kg 83.915 kg Intake: IV 600 600 Sodium Chloride 0.9% 1, 600 600 000 ml @ 75 mls/hr IV . [id number] [facility] Rx#:[id number] Other: Voiding Method Toilet Toilet Toilet # Voids 1 3 2 # Bowel Movements 1 1 1 - Constitutional General appearance: Present: cooperative, obese - EENT Eyes: Present: PERRLA - Gastrointestinal Gastrointestinal Comment(s): Soft nontender nondistended no organomegaly there's palpable hernias but reducible with no incarceration was translation at this time. General gastrointestinal: Present: soft - Neurologic Neurologic: Present: CNII-XII intact - Psychiatric Psychiatric: Present: A&O x's 3, appropriate affect - Labs CBC & Chem 7: 08/24/16 06:21 08/23/16 15:35 Labs: Abnormal Lab Results - Last 24 Hours (Table) 08/23/16 08/23/16 08/23/16 Range/Units 15:35 15:35 16:32 BUN 30 H (7-17) mg/dL Creatinine 1.14 H (0.52-1.04) mg/dL Glucose 122 H (74-99) mg/dL POC Glucose (mg/dL) 106 H (75-99) mg/dL Hemoglobin A1c 6.5 H (4.2-6.1) % Total Protein 8.3 H (6.3-8.2) g/dL Ur Specific [place] (1.001-1.035) Urine Protein (Negative) 08/23/16 08/23/16 08/24/16 Range/Units 21:25 23:56 05:57 BUN (7-17) mg/dL Creatinine (0.52-1.04) mg/dL Glucose (74-99) mg/dL POC Glucose (mg/dL) 100 H 131 H (75-99) mg/dL Hemoglobin A1c (4.2-6.1) % Total Protein (6.3-8.2) g/dL Ur Specific [place] >1.050 H (1.001-1.035) Urine Protein Trace H (Negative) 08/24/16 Range/Units 11:42 BUN (7-17) mg/dL Creatinine (0.52-1.04) mg/dL Glucose (74-99) mg/dL POC Glucose (mg/dL) 165 H (75-99) mg/dL Hemoglobin A1c (4.2-6.1) % Total Protein (6.3-8.2) g/dL Ur Specific [place] (1.001-1.035) Urine Protein (Negative) Microbiology - Last 24 Hours (Table) 08/23/16 21:25 Urine Culture - Preliminary Urine,Clean Catch Assessment and Plan (1) Abdominal pain Status: Acute Plan: Patient is doing well. Plan for this patient is to advance the diet. He was febrile last night and her bowel movements are stored normal she will be discharged home to follow up in the outpatient. At this time no surgical intervention is planned we will follow peripherally please call if needed.
[2016-08-24 18:06] LABS: Glucose,Whole Blood 133 mg/dL (75-99)
[2016-08-24] MEDS: ALPRAZolam 0.5 MG TAB PO SCH (20:19)
[2016-08-24] MEDS: glipiZIDE 5 MG TAB PO SCH (20:20)
[2016-08-24] MEDS: MONTELUKAST 10 MG TAB PO SCH (20:20)
[2016-08-24] MEDS: metFORMIN 500 MG TAB PO SCH (20:20)
[2016-08-24] MEDS: MORPHINE SULFATE ER 15 MG TABLET PO SCH (20:20)
[2016-08-24 21:06] LABS: Glucose,Whole Blood 158 mg/dL (75-99)
[2016-08-24] MEDS: INSULIN GLARGINE 100 UNIT/ML 10 ML VIAL SQ SCH (21:12)
[2016-08-25 06:59] LABS: Glucose,Whole Blood 73 mg/dL (75-99)
[2016-08-25 08:11] LABS: Aty Lym Flag Slight; CH 32.1; CHCM 33.6; HCT 35.6 % (34.0-46.0); HDW 2.81; HGB 12.4 gm/dL (11.4-16.0); MCH 33.3 pg (25.0-35.0); MCHC 34.7 g/dL (31.0-37.0); MCV 95.9 fL (80.0-100.0); Mean Platelet Volume 7.4; RBC 3.71 m/uL (3.80-5.40); WBC 6.3 k/uL (3.8-10.6); WBC (Perox) 6.52
[2016-08-25] MEDS: INSULIN LISPRO (humaLOG) 300 UNIT/3 ML VIAL SQ SCH ×4 (08:26→22:56)
[2016-08-25 08:33] LABS: Add Differential Manual Differential
[2016-08-25 08:36] LABS: Manual Review Performed; Nucleated Red Blood Cells 0 /100 WBC (0-0); RBC Morphology Normal; Total Cells Counted 100
[2016-08-25 08:49] LABS: Anion Gap 11 mmol/L; Calcium 9.1 mg/dL (8.4-10.2); Carbon Dioxide 24 mmol/L (22-30); Chloride 106 mmol/L (98-107); Glucose 103 mg/dL (74-99); Non-African American GFR(MDRD) >60 (>60 ml/min/1.73 sqM); Sodium 141 mmol/L (137-145); Total Bilirubin 0.6 mg/dL (0.2-1.3); Total Protein 6.7 g/dL (6.3-8.2)
[2016-08-25 08:53] LABS: ALT 33 U/L (9-52); AST 28 U/L (14-36); Alkaline Phosphatase 55 U/L (38-126); Blood Urea Nitrogen 13 mg/dL (7-17); Potassium 4.2 mmol/L (3.5-5.1)
[2016-08-25] MEDS ORDERED: FAMOTIDINE 20 MG/2 ML VIAL IV SCH (09:00)
[2016-08-25] MEDS: DICYCLOMINE 20 MG TAB PO SCH ×4 (10:35→22:57)
[2016-08-25] MEDS: TRIAMTERENE-HCTZ 75-50MG 1 EACH TAB PO SCH (10:36)
[2016-08-25] MEDS: glipiZIDE 5 MG TAB PO SCH ×2 (10:36→22:56)
[2016-08-25] MEDS: metFORMIN 500 MG TAB PO SCH ×2 (10:36→22:56)
[2016-08-25] MEDS: SODIUM CHLORIDE 0.9% 1,000 ML IV SCH ×2 (10:36→15:46)
[2016-08-25] MEDS: MORPHINE SULFATE ER 15 MG TABLET PO SCH ×2 (10:37→22:53)
[2016-08-25] MEDS: oxyCODONE-APAP 10-325MG 1 EACH TAB PO PRN ×2 (10:38→15:49)
[2016-08-25] MEDS: ALPRAZolam 0.5 MG TAB PO SCH ×2 (10:38→22:59)
[2016-08-25] MEDS: ONDANSETRON 4 MG/2 ML VIAL IVP PRN ×2 (10:39→20:03)
[2016-08-25 11:43] LABS: Glucose,Whole Blood 180 mg/dL (75-99)
--- NOTE | 2016-08-25 16:01 | PN ---
DATE OF SERVICE: 08/25/2016 Ms. Garcia is seen, evaluated and examined on surgical unit. Patient continued to have severe abdominal pain and back pain and leg pain for which she has received pain medicine. Pain is easing up. Patient is being followed up for ventral hernia repair. General Surgery has been following. She has ( ) loose stool diarrhea, which has improved though she continued to have complaint of some abdominal distention, abdominal binder which has been ordered by surgical service has been helping. She is passing gas from below. On examination, her blood pressure is 140/70, respiratory rate 18, pulse 80, temperature 98, saturation 98% on room air. HEENT EXAMINATION: Otherwise unremarkable. Atraumatic, normocephalic. Pharynx is clear. Narrow pharyngeal opening is present. NECK: Supple without any lymphadenopathy, jugular venous distention or carotid bruit. LUNGS: Bilateral good air entry is present without significant rales, rhonchi, or rub. HEART: Regular rate and rhythm. S1 and S2 audible. ABDOMEN: Soft. No rebound or rigidity. EXTREMITIES: +1 peripheral pulses. NEUROLOGICAL EXAMINATION: Otherwise, awake and alert. Patient has a history of chronic asthma. Has been using breathing treatment, has been very concerned about it as she had some exposure to strong perfumes developed shortness of breath; however, breathing treatments were helpful. Laboratory data reviewed. White cell count is 6300, hemoglobin 12, hematocrit 35, platelet count 253,000. Sodium 141, potassium 4.2. BUN and creatinine 13 and 0.78. IMPRESSION: 1. Chronic persistent asthma. Doing well with breathing treatments. Patient likely will require further evaluation of allergic asthma versus intrinsic asthma on outpatient basis. 2. Large ventral hernia without incarceration, status post repair with history of colostomy in the past followed by reversal. 3. Diverticular abscess. 4. History of coccygeal ulcer. 5. Type 2 diabetes mellitus. PLAN: As above. Continue supportive care. Monitor clinical course closely. Continue breathing treatments. Maintain patient on DVT and peptic ulcer disease prophylaxis. Would put the patient on subcu heparin as well. Continue pneumatic compression device as well.
[2016-08-25 17:47] LABS: Glucose,Whole Blood 80 mg/dL (75-99)
[2016-08-25 21:14] LABS: Glucose,Whole Blood 119 mg/dL (75-99)
[2016-08-25] MEDS: MONTELUKAST 10 MG TAB PO SCH (22:57)
[2016-08-25] MEDS: HEPARIN SODIUM,PORCINE 5,000 UNIT/ML 1 ML VIAL SQ SCH (23:00)
[2016-08-25] MEDS: INSULIN GLARGINE 100 UNIT/ML 10 ML VIAL SQ SCH (23:02)
[2016-08-26] MEDS: oxyCODONE-APAP 10-325MG 1 EACH TAB PO PRN ×4 (00:02→21:13)
[2016-08-26 01:18] LABS: Glucose,Whole Blood 127 mg/dL (75-99)
[2016-08-26] MEDS: SODIUM CHLORIDE 0.9% 1,000 ML IV SCH ×2 (04:30→15:56)
[2016-08-26 07:11] LABS: Glucose,Whole Blood 80 mg/dL (75-99)
[2016-08-26] MEDS: INSULIN LISPRO (humaLOG) 300 UNIT/3 ML VIAL SQ SCH ×4 (09:24→21:14)
[2016-08-26] MEDS: MORPHINE SULFATE ER 15 MG TABLET PO SCH ×2 (09:31→20:05)
[2016-08-26] MEDS: ONDANSETRON 4 MG/2 ML VIAL IVP PRN ×3 (09:32→21:03)
[2016-08-26] MEDS: glipiZIDE 5 MG TAB PO SCH ×2 (09:32→20:09)
[2016-08-26] MEDS: HEPARIN SODIUM,PORCINE 5,000 UNIT/ML 1 ML VIAL SQ SCH ×2 (09:32→20:10)
[2016-08-26] MEDS: ALPRAZolam 0.5 MG TAB PO SCH ×2 (09:32→21:03)
[2016-08-26] MEDS: DICYCLOMINE 20 MG TAB PO SCH ×4 (09:33→20:09)
[2016-08-26] MEDS: FAMOTIDINE 20 MG TAB PO SCH (09:33)
[2016-08-26] MEDS: metFORMIN 500 MG TAB PO SCH ×2 (09:33→20:09)
[2016-08-26] MEDS: TRIAMTERENE-HCTZ 75-50MG 1 EACH TAB PO SCH (10:35)
[2016-08-26 11:43] LABS: Glucose,Whole Blood 142 mg/dL (75-99)
--- NOTE | 2016-08-26 14:35 | P.PN ---
Subjective This is a 56-year-old female patient being evaluated and examined today on the third floor. This patient was sent over directly from Dr. Delgado's office yesterday 08/23/2016 with abdominal distention and pain. Dr. Deglado felt that the distention was due to the ventral hernia and had been going on for several weeks. Patient did have a CAT scan done on the that did show a large ventral hernia without evidence of incarceration, without any significant changes. Patient is also seen in the wound center for a sacral coccyx wound. Patient has multiple medical problems has an extensive surgical history. On 07/2015 patient had a colectomy with a colostomy for perforated diverticulitis. Patient underwent a reversal of colostomy done done on 07/22/2015 patient developed a small decubitus ulcer in May 2016 was followed by the wound care center with Dr. Soliz. Supposedly the patient was supposed to wear an abdominal binder for her ventral hernia however she stated she had like the way of it so she won't wear it. Upon examination the patient's resting up in chair on room air she denies any shortness of breath cough or congestion at this time. She feels her abdominal pain has decreased somewhat since yesterday. Patient has Dr. Soliz on for surgical services. Patient continues to have episodes of diarrhea. Patient has a good appetite and is currently eating her lunch. Objective - Vital Signs Vital signs: Vital Signs Temp 98.0 F 08/26/16 07:00 Pulse 78 08/26/16 07:00 Resp 16 08/26/16 07:00 BP 116/63 08/26/16 07:00 Pulse Ox 95 08/26/16 07:00 Intake & Output 08/25/16 08/26/16 08/26/16 18:59 06:59 18:59 Intake Total 240 900 Output Total 300 Balance 240 600 Intake: IV 900 Sodium Chloride 0.9% 1, 900 000 ml @ 75 mls/hr IV . [id number] PENDING SALE TO [facility] Rx#:[id number] Oral 240 Output: Urine 300 Other: Voiding Method Toilet # Voids 2 1 2 # Bowel Movements 1 - Exam GENERAL EXAM: Alert, active, comfortable in no apparent distress. HEAD: Normocephalic. EYES: Normal reaction of pupils, equal size. NOSE: Clear with pink turbinates. THROAT: No erythema or exudates. NECK: No masses, no JVD. CHEST: No chest wall deformity. LUNGS: Equal air entry with no crackles, wheeze, rhonchi or dullness. CVS: S1 and S2 normal with no audible mumurs, regular rhythm. ABDOMEN: No hepatosplenomegaly, normal bowel sounds, no guarding or rigidity. Large ventral hernia present. EXTREMITIES: No edema noted, pedal pulses palpable. SKIN: No rashes CENTRAL NERVOUS SYSTEM: No focal deficits, tone is normal in all 4 extremities. - Labs CBC & Chem 7: 08/25/16 07:54 08/25/16 07:54 Labs: Abnormal Lab Results - Last 24 Hours (Table) 08/25/16 08/26/16 08/26/16 Range/Units 21:12 01:07 11:40 POC Glucose (mg/dL) 119 H 127 H 142 H (75-99) mg/dL Microbiology - Last 24 Hours (Table) 08/23/16 21:25 Urine Culture - Final Urine,Clean Catch Klebsiella pneumoniae Assessment and Plan Plan: Assessment POA large ventral hernia without evidence of incarceration History of diverticulitis reversal of colostomy May 2015 Medical debility Leukocytosis History of diverticular abscess within the sigmoid colon Treatment of coccyx ulcer 07/10/2016 Diabetes mellitus type 2 Plan Medications have been reviewed and will be continued as ordered. Continue with pulmonary hygiene, coughing and deep breathing exercises, and supportive care. Supplemental oxygen to maintain oxygen saturations of 92% or better. Encourage ambulation. Consult to Dr. Soliz, appreciate recommendations. Patient to wear abdominal binder when up. Continue nebulizer treatments. GI and DVT prophylaxis. We will continue to monitor labs/results and adjust treatment as necessary. Further recommendations pending. I performed an examination of the patient and discussed their management with the nurse practitioner. I have reviewed the nurse practitioner's note and agree with the documented findings and plan of care. We are covering for Dr. Delgado today.
[2016-08-26 17:11] LABS: Glucose,Whole Blood 66 mg/dL (75-99)
[2016-08-26 17:32] LABS: Glucose,Whole Blood 66 mg/dL (75-99)
[2016-08-26 17:53] LABS: Glucose,Whole Blood 85 mg/dL (75-99)
[2016-08-26] MEDS: MONTELUKAST 10 MG TAB PO SCH (20:09)
[2016-08-26] MEDS: INSULIN GLARGINE 100 UNIT/ML 10 ML VIAL SQ SCH (20:13)
[2016-08-26 20:18] LABS: Glucose,Whole Blood 146 mg/dL (75-99)
[2016-08-27 00:56] VITALS: RESP 16
[2016-08-27] MEDS: SODIUM CHLORIDE 0.9% 1,000 ML IV SCH (04:02)
[2016-08-27] MEDS: oxyCODONE-APAP 10-325MG 1 EACH TAB PO PRN ×2 (04:05→10:42)
[2016-08-27 07:35] LABS: Glucose,Whole Blood 84 mg/dL (75-99)
[2016-08-27 07:42] VITALS: BP 144/76; PULSE 76; TEMP 98
[2016-08-27] MEDS: MORPHINE SULFATE ER 15 MG TABLET PO SCH (08:08)
[2016-08-27] MEDS: metFORMIN 500 MG TAB PO SCH (08:10)
[2016-08-27] MEDS: ONDANSETRON 4 MG/2 ML VIAL IVP PRN (08:10)
[2016-08-27] MEDS: DICYCLOMINE 20 MG TAB PO SCH ×2 (08:11→12:19)
[2016-08-27] MEDS: HEPARIN SODIUM,PORCINE 5,000 UNIT/ML 1 ML VIAL SQ SCH (08:11)
[2016-08-27] MEDS: TRIAMTERENE-HCTZ 75-50MG 1 EACH TAB PO SCH (08:13)
[2016-08-27] MEDS: glipiZIDE 5 MG TAB PO SCH (08:13)
[2016-08-27] MEDS: FAMOTIDINE 20 MG TAB PO SCH (08:13)
[2016-08-27] MEDS: INSULIN LISPRO (humaLOG) 300 UNIT/3 ML VIAL SQ SCH ×2 (08:13→11:36)
[2016-08-27] MEDS: ALPRAZolam 0.5 MG TAB PO SCH (08:18)
[2016-08-27 11:37] LABS: Glucose,Whole Blood 93 mg/dL (75-99)
--- NOTE | 2016-08-27 14:09 | P.DS ---
Providers Date of admission: 08/23/16 14:35 Attending physician: Junior Delgado Consults: 08/23/16 15:32 Consult Physician Urgent Consulting Provider: Guanaco Soliz Consult Reason/Comments: Known to service abdominal pain Do you want consulting provider notified?: Yes Primary care physician: [facility] Course: This is a 56-year-old female patient being evaluated and examined today on the third floor. This patient was sent over directly from Dr. Delgado's office yesterday 08/23/2016 with abdominal distention and pain. Dr. Delgado felt that the distention was due to the ventral hernia and had been going on for several weeks. Patient did have a CAT scan done on the that did show a large ventral hernia without evidence of incarceration, without any significant changes. Patient is also seen in the wound center for a sacral coccyx wound. Patient has multiple medical problems has an extensive surgical history. On 07/2015 patient had a colectomy with a colostomy for perforated diverticulitis. Patient underwent a reversal of colostomy done done on 07/22/2015 patient developed a small decubitus ulcer in May 2016 was followed by the wound care center with Dr. Soliz. Supposedly the patient was supposed to wear an abdominal binder for her ventral hernia however she stated she had like the way of it so she won't wear it. Upon examination the patient's resting up in chair on room air she denies any shortness of breath cough or congestion at this time. She feels her abdominal pain has decreased somewhat since yesterday. Patient has Dr. Soliz on for surgical services which have signed off on the patient and will follow up with her in the outpatient setting. Patient continues to have less frequent episodes of diarrhea. Patient has a good appetite and is currently eating her lunch and would like to go home. Pertinent Studies: CT of Abd/Pelvis Plan - Discharge Summary New Discharge Prescriptions: oxyCODONE-APAP 10-325MG [Percocet 10-325 mg] 1 tab PO QID PRN #10 tab PRN Reason: Pain Discharge Medication List Ergocalciferol [Vitamin D2 (DRISDOL)] 50,000 unit PO TUTH 04/07/15 [History] Montelukast [Singulair] 10 mg PO HS 04/07/15 [History] Triamterene-Hctz 75-50Mg [Maxzide 75-50] 1 tab PO DAILY 04/07/15 [History] glipiZIDE [Glucotrol XL] 5 mg PO BID 04/07/15 [History] Albuterol Nebulized [Ventolin Nebulized] 2.5 mg INHALATION RT-Q6H PRN #120 nebu 04/13/15 [Rx] Pantoprazole [Protonix] 40 mg PO DAILY #30 tablet.dr 04/13/15 [Rx] Dicyclomine [Bentyl] 5 mg PO ACHS 07/19/15 [History] Fluticasone Propionate 2 spray EA NOSTRIL BID PRN 07/19/15 [History] Morphine Sulfate ER [Ms Contin] 15 mg PO BID 07/19/15 [History] ALPRAZolam [Xanax] 1 mg PO BID 06/20/16 [History] Insulin Glargine,Hum.rec.anlog [Skylar Zavala] 15 units SQ HS 07/26/16 [ History] metFORMIN HCL [Metformin HCl] 1,000 mg PO BID 08/23/16 [History] ALPRAZolam [Xanax] 1 mg PO BID tab 08/27/16 [Rx] Dicyclomine [Bentyl] 5 mg PO ACHS tab 08/27/16 [Rx] Famotidine [Pepcid] 20 mg PO DAILY tab 08/27/16 [Rx] INSULIN LISPRO (humaLOG) [humaLOG (formulary)] 0 unit SQ ACHS vial 08/27/16 [Rx ] Insulin Glargine [Lantus] 15 unit SQ HS vial 08/27/16 [Rx] Morphine Sulfate ER [Ms Contin] 15 mg PO BID tab 08/27/16 [Rx] Ondansetron [Zofran] 4 mg IVP Q6HR PRN vial 08/27/16 [Rx] Triamterene-Hctz 75-50Mg [Maxzide 75-50] 1 each PO DAILY tab 08/27/16 [Rx] glipiZIDE [Glucotrol] 5 mg PO BID tab 08/27/16 [Rx] metFORMIN HCL [Glucophage] 1,000 mg PO BID tab 08/27/16 [Rx] oxyCODONE-APAP 10-325MG [Percocet 10-325 mg] 1 tab PO QID PRN #10 tab 08/27/16 [ Rx] Follow up Appointment(s)/Referral(s): Guanaco Soliz MD [STAFF PHYSICIAN] - 1 Week Junior Delgado MD [Primary Care Provider] - 3 Days (Will need to schedule appointment, office closed) [facility], [NON-STAFF] - 1 Week Dallas Jiang MD [STAFF PHYSICIAN] - 1 Week (Will need to schedule appointment, office closed) Activity/Diet/Wound Care/Special Instructions: [facility] of Human Services [phone] to apply for home chore help
[2016-08-28] MEDS ORDERED: ERGOCALCIFEROL 50,000 UNIT CAP PO SCH (12:00)
== END 2016-08-27 14:59 | disposition home health service (06) | DRG 395 ==
LOC: 3SUR 14:35
PROVIDERS: ADMIT Family Medicine; ATTEND Family Medicine
DX: K43.9 Ventral hernia without obstruction or gangrene (principal); L89.159 Pressure ulcer of sacral region, unspecified stage; E11.40 Type 2 diabetes mellitus with diabetic neuropathy, unspecified; M41.9 Scoliosis, unspecified; I10 Essential (primary) hypertension; E66.9 Obesity, unspecified; Z68.32 Body mass index [BMI] 32.0-32.9, adult; E78.5 Hyperlipidemia, unspecified; K21.9 Gastro-esophageal reflux disease without esophagitis; F32.9 Major depressive disorder, single episode, unspecified; M19.91 Primary osteoarthritis, unspecified site; F40.240 Claustrophobia; G89.29 Other chronic pain; H26.9 Unspecified cataract; H93.19 Tinnitus, unspecified ear; K76.9 Liver disease, unspecified; M47.817 Spondylosis without myelopathy or radiculopathy, lumbosacral region; J45.909 Unspecified asthma, uncomplicated; Z87.311 Personal history of (healed) other pathological fracture; Z87.891 Personal history of nicotine dependence; Z91.018 Allergy to other foods; Z88.0 Allergy status to penicillin; Z88.1 Allergy status to other antibiotic agents; Z88.6 Allergy status to analgesic agent; Z91.048 Other nonmedicinal substance allergy status; Z90.49 Acquired absence of other specified parts of digestive tract; Z87.11 Personal history of peptic ulcer disease; Z79.84 Long term (current) use of oral hypoglycemic drugs; Z79.4 Long term (current) use of insulin; Z79.899 Other long term (current) drug therapy
CPT/HCPCS: 74178; 80053; 81003; 83036; 85025; 87077; 87086; 87186; 87324; 94640

== ENCOUNTER → 2017-04-25 | Outpatient (CLI) | payer MEDICARE, OTHER ==
--- NOTE | 2017-04-25 10:14 | CT ---
EXAMINATION TYPE: CT abdomen wo con DATE OF EXAM: 04/25/2017 COMPARISON: 08/23/2016 HISTORY: Abdominal pain CT DLP: 671 mGycm Examination of the solid and hollow viscera is limited given the lack of contrast. Unenhanced CT of t he abdomen was performed. FINDINGS: LUNG BASES: No evidence for nodule. No evidence for infiltrate. LIVER/GB: Hepatic steatosis with hepatomegaly. The gallbladder is unremarkable. No space-occupying he patic lesion. PANCREAS: No pancreatic mass identified. No inflammatory process seen. SPLEEN: No evidence for splenomegaly. No intrasplenic lesions seen. ADRENALS: Left adrenal mass is stable and measures 2.9 cm and may reflect an adenoma. No evidence for thickening. KIDNEYS: Hypoattenuating renal lesions are nonspecific and may reflect cysts. Consider ultrasound cor relation.. Nonobstructing 3 mm calculus upper pole left kidney. No hydronephrosis. BOWEL: Moderate fecal stasis. Visualized small bowel loops as well as large bowel loops fail demonstr ate evidence for inflammatory process. Lymph nodes: No evidence for adenopathy greater than 1 cm. Abdominal aorta: Atheromatous changes seen. No evidence for aneurysm. Other: [place] midline ventral hernia contains a segment of large bowel and small bowel. Partially imaged ventral hernia to the right of midline at the level of the umbilicus. No definite evidence for strangulation at this time. IMPRESSION: 1.[place] midline ventral hernia contains a segment of large bowel and small bowel. Partially image d ventral hernia to the right of midline at the level of the umbilicus. No definite evidence for stra ngulation at this time. 2. Hepatic steatosis with hepatomegaly. 3. Stable left adrenal mass. 4. Nonspecific renal lesions. 5. Nonobstructing left-sided nephrolithiasis.
== END | disposition home or self-care (01) ==
LOC: RADCTMAIN 09:21
PROVIDERS: ATTEND Family Medicine
DX: K43.9 Ventral hernia without obstruction or gangrene (principal); N20.0 Calculus of kidney; K76.0 Fatty (change of) liver, not elsewhere classified; R16.0 Hepatomegaly, not elsewhere classified; E27.9 Disorder of adrenal gland, unspecified
CPT/HCPCS: 74150

== ENCOUNTER → 2017-05-15 | Outpatient (CLI) | payer MEDICARE, OTHER ==
--- NOTE | 2017-05-15 15:08 | XR ---
EXAMINATION TYPE: XR chest 2V DATE OF EXAM: 05/15/2017 COMPARISON: Prior chest x-ray 07/25/2015 and shoulder x-ray 06/06/2016 HISTORY: Preop TECHNIQUE: Frontal and lateral views of the chest are obtained. FINDINGS: Bandlike areas of increased attenuation present in the lower lobes, no evident pneumothora x or pleural effusion. Cardiac mediastinal silhouette, pulmonary vascularity and elian within normal l imits. Possible chondroid lesion versus bone infarct within the proximal right humerus again noted. IMPRESSION: Probable stable lung scarring.
== END | disposition home or self-care (01) ==
LOC: LABPAT 11:13
PROVIDERS: ATTEND Orthopaedic Surgery
DX: Z01.818 Encounter for other preprocedural examination (principal); Z01.812 Encounter for preprocedural laboratory examination
CPT/HCPCS: 36415; 71046; 86850; 86900; 86901; 87070

== ENCOUNTER → 2017-05-18 | Outpatient (CLI) | payer MEDICARE, OTHER ==
[2017-05-18 13:26] LABS: Basophils # (A) 0.1 k/uL (0-0.2); Basophils % (A) 1 %; Eosinophils # (A) 0.3 k/uL (0-0.7); Eosinophils % (A) 3 %; HCT 42.3 % (34.0-46.0); HGB 13.7 gm/dL (11.4-16.0); Lymphocytes % (A) 36 %; MCH 31.8 pg (25.0-35.0); MCHC 32.3 g/dL (31.0-37.0); MCV 98.5 fL (80.0-100.0); Mean Platelet Volume 7.1; Monocytes # (A) 0.4 k/uL (0-1.0); Monocytes % (A) 5 %; Neutrophils # (A) 4.3 k/uL (1.3-7.7); Neutrophils % (A) 52 %; Platelet Count 273 k/uL (150-450); RDW 12.9 % (11.5-15.5); WBC 8.3 k/uL (3.8-10.6)
[2017-05-18 13:36] LABS: Partial Thromboplastin Time 21.6 sec (22.0-30.0)
[2017-05-18 13:40] LABS: Prothrombin Time 9.9 sec (9.0-12.0)
== END | disposition home or self-care (01) ==
LOC: LABPAT 13:00
PROVIDERS: ATTEND Orthopaedic Surgery
DX: Z01.812 Encounter for preprocedural laboratory examination (principal); Z79.01 Long term (current) use of anticoagulants; M16.11 Unilateral primary osteoarthritis, right hip
CPT/HCPCS: 36415; 80051; 85025; 85610; 85730

== ENCOUNTER → 2017-07-25 | Outpatient (CLI) | payer MEDICARE, OTHER ==
--- NOTE | 2017-07-25 11:09 | US ---
EXAMINATION TYPE: US axilla LT DATE OF EXAM: 07/25/2017 COMPARISON: NONE CLINICAL HISTORY: R22.9 Localized swelling, mass and lump. Patient feels there is lump in her axilla and she has pain in her arm spreading from her axilla. Area of lump and arm at pain scanned, no mass or fluid collection identified. IMPRESSION: No sonographic abnormality to correspond with the patient's palpable abnormality. Theref ore clinical management is recommended.
== END ==
LOC: RADUSWWP 10:07
PROVIDERS: ATTEND Family Medicine
DX: M79.89 Other specified soft tissue disorders (principal); R22.9 Localized swelling, mass and lump, unspecified

== ENCOUNTER 2017-11-01 20:43 | Observation (INO) | payer MEDICARE, OTHER ==
[2017-11-01] MEDS ORDERED: SODIUM CHLORIDE 0.9% 500 ML IV STA (23:45)
--- NOTE | 2017-11-01 23:54 | ED ---
General Adult HPI - General Source: patient, family, RN notes reviewed Mode of arrival: wheelchair Limitations: no limitations <Arnol Dia - Last Filed: 11/02/17 00:54> <Erik Louie - Last Filed: 11/02/17 05:07> - General Chief complaint: Recheck/Abnormal Lab/Rx Stated complaint: Eye Problems - History of Present Illness Initial comments: Chief complaint and history of present illness this is a 53-year-old female presents with multiple complaints. Some going back several weeks. Today she started having some visual acuity changes with floaters in the right eye. Minimal discomfort. Patient also complains of several abdominal hernias. With a past history of diverticulitis. Also right hip replacement 6 months ago with persistent pain. She also stubbed her right little toe. Patient also presents with chronic back pain. (Arnol Dia) - Related Data Home Medications Medication Instructions Recorded Confirmed Montelukast [Singulair] 10 mg PO HS 04/07/15 05/21/17 Triamterene-Hctz 75-50Mg [Maxzide 1 tab PO DAILY 04/07/15 05/21/17 75-50] glipiZIDE [Glucotrol XL] 5 mg PO BID 04/07/15 05/21/17 Dicyclomine [Bentyl] 5 mg PO ACHS 07/19/15 05/21/17 Fluticasone Propionate 2 spray EA NOSTRIL BID PRN 07/19/15 05/21/17 Insulin Glargine,Hum.rec.anlog 20 units SQ HS 07/26/16 05/21/17 [Skylar Zavala] Albuterol Sulfate [Proair Hfa] 2 puff INHALATION RT-Q6H PRN 05/09/17 05/21/17 Docusate [Colace] 100 mg PO DAILY 05/09/17 05/21/17 Exenatide Microspheres [Bydureon 2 mg SQ TU 05/09/17 05/21/17 Pen] Gabapentin [Neurontin] 100 mg PO TID 05/09/17 05/21/17 Ondansetron [Zofran] 4 mg PO Q12HR 05/09/17 05/21/17 Albuterol Nebulized [Ventolin 2.5 mg INHALATION RT-QID PRN 05/21/17 05/21/17 Nebulized] Previous Rx's Medication Instructions Recorded Pantoprazole [Protonix] 40 mg PO DAILY #30 tablet. 04/13/15 metFORMIN HCL [Glucophage] 1,000 mg PO BID tab 08/27/16 Rivaroxaban [Xarelto] 10 mg PO DAILY #28 tab 05/21/17 ALPRAZolam [Xanax] 1 mg PO Q12HR #30 05/24/17 Dicyclomine [Bentyl] 5 mg PO ACHS tab 05/24/17 Ipratropium-Albuterol Nebulize 3 ml INHALATION RT-Q4H PRN 05/24/17 [Duoneb 0.5 mg-3 mg/3 ml Soln] ampul.neb Ipratropium-Albuterol Nebulize 3 ml INHALATION TID #1 neb 05/24/17 [Duoneb 0.5 mg-3 mg/3 ml Soln] oxyCODONE HCL/ACETAMINOPHEN 1 - 2 tab PO Q6HR PRN #60 tab 05/24/17 [Percocet 10-325 mg] traMADol HCl [Ultram] 50 mg PO Q6H PRN #30 tab 05/24/17 Allergies Allergy/AdvReac Type Severity Reaction Status Date / Time adhesive tape Allergy Severe Itching Verified 11/01/17 21:49 asparagus Allergy Wheezing Verified 11/01/17 21:49 aspirin Allergy Dyspnea Verified 11/01/17 21:49 ceftriaxone sodium Allergy Anaphylaxis Verified 11/01/17 21:49 [From Rocephin] cephalexin monohydrate Allergy Anaphylaxis Verified 11/01/17 21:49 [From Keflex] Penicillins Allergy Anaphylaxis Verified 11/01/17 21:49 perfume Allergy Wheezing Verified 11/01/17 21:49 DUST Allergy Wheezing Uncoded 11/01/17 21:49 HAY Allergy Wheezing Uncoded 11/01/17 21:49 Review of Systems ROS Other: All systems not noted in ROS Statement are negative. <Arnol Dia - Last Filed: 11/02/17 00:54> ROS Other: All systems not noted in ROS Statement are negative. <Erik Louie - Last Filed: 11/02/17 05:07> ROS Statement: Those systems with pertinent positive or pertinent negative responses have been documented in the HPI. Review of systems. As noted above in the chief complaint the patient has complaints of changes with the right eye, floater sensation or weblike sensation when she closes her eye. Also abdominal pain with history diverticulitis the past. 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 Patient also reports she stubbed her right foot against her left causing the right little to to be painful. Patient states she takes Percocet at home does not want pain medication here. Past medical problems significant for diabetes, neuropathy, chronic neck pain with left arm numbness on occasion made worse by turning her head left or right. Patient also had diverticulitis multiple surgeries totaling 25 per patient. She's had bowel resection, appendectomy, orthopedic surgery right hip. Multiple bilateral foot surgeries. Family history noncontributory. The patient has ALLERGIES to adhesive tape, asparagus, aspirin, ceftriaxone, cephalexin, penicillin, perfume, dust and headache. Patient also reports that she recently had a neuroma increased from 100-300 but she brought it back down to 100. Recently had her glipizide reduced. Patient is a former smoker denies alcohol. 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 neuropathy bilateral hands and feet, superficial blood clots arms and legs-not DVTs. recent tooth infection with rx-antibiotics to be completed prior to surgery.pt states has limited movement of neck History of Any Multi-Drug Resistant Organisms: None Reported Past Surgical History: Appendectomy, Bowel Resection, Orthopedic Surgery Additional Past Surgical History / Comment(s): multi tequila foot surgeries with hardware, egd, lt shoulder arthroscopic sx, rt hand 5th finger-trigger finger sx, rt middle finger rt hand-benign tumor removed with bone graph, laparoscopy, fallopian tubes removed. 2 picc lines - since removed, 05/05/15 colectomy with colostomy, colostomy reversal, cryogenic tx for precancerous skin lesions. Ostomy site surgically closed, TOTAL RIGHT HIP ANTERIOR APPROACH Past Anesthesia/Blood Transfusion Reactions: Family History of Problems w/ Anesthesia, Postoperative Nausea & Vomiting (PONV) Additional Past Anesthesia/Blood Transfusion Reaction / Comment(s): claustrophobia. PONV both pt and family. pt states unsure of mothers history of malignant hyperthermia stated "I don't know for sure but something bad happened" Past Psychological History: Anxiety, Depression Smoking Status: Former smoker Past Alcohol Use History: None Reported Past Drug Use History: Marijuana - Past Family History Mother Family Medical History: Cancer, Coronary Artery Disease (CAD), Myocardial Infarction ([place]), Thyroid Disorder Additional Family Medical History / Comment(s): thyroid/lung cancer. Mother of lung cancer at age 80 Father Family Medical History: Congestive Heart Failure (CHF), Diabetes Mellitus, Deep Vein Thrombosis (DVT), Pulmonary Embolus Additional Family Medical History / Comment(s): Father of diabetic complications at age 64. <Arnol Dia - Last Filed: 11/02/17 00:54> General Exam Limitations: no limitations <Arnol Dia - Last Filed: 11/02/17 00:54> <Erik Louie - Last Filed: 11/02/17 05:07> - General Exam Comments Initial Comments: General: The patient is awake and alert, has multiple issues as noted in the chief complaint. Vital signs shows temperature 98.1 pulse 81 respiratory rate 18, blood pressure 127/86 with pulse ox 97% room air. Eye: Pupils are equal, round and reactive to light, extra-ocular movements are intact ; there is normal conjunctiva bilaterally. No signs of icterus. Eye pressure measured in the right eye is 16. Left eye 25, without any complaints of visual acuity changes to the left eye. Ears, nose, mouth and throat: There are moist mucous membranes and no oral lesions. Neck: Patient has chronic neck pain. MRI shows evidence of disc protrusion. Also complains of on again off again numbness and tingling down her left arm which could become worse when she turns her head a particular way. She states she can 't take steroids because of suture blood sugars too high. No new injuries to her neck or back but she has had chronic back pain. Cardiovascular: There is a regular rate and rhythm. No murmur, rub or gallop is appreciated. Respiratory: Lungs are clear to auscultation, respirations are non-labored, breath sounds are equal. No wheezes, stridor, rales, or rhonchi. Gastrointestinal: Patient reports that she has 3 painful ventral hernias. These all appear to be reducible. Does have a long history of diverticulitis with reported abscess in the past. Active bowel sounds. Patient uses stool softener Back: Chronic back pain for which she takes Percocet. Musculoskeletal: Occasional numbness radiates down her left arm from cervical radiculopathy. Right little toe stabbed several days ago hurts today. Neurological: CN II-XII intact, There are no obvious motor or sensory deficits. Coordination appears grossly intact. Speech is normal. Skin: Patient states on-again off-again breaking out into a sweat for the past month. Psychiatric: Cooperative, (Arnol Dia) Vital Signs 11/01/17 11/02/17 11/02/17 21:43 01:00 04:00 Temperature 98.1 F 97.9 F Pulse Rate 81 74 82 Respiratory 18 16 15 Rate Blood Pressure 127/86 188/79 174/83 O2 Sat by Pulse 97 98 95 Oximetry 11/02/17 04:20 Temperature 97.9 F Pulse Rate Respiratory Rate Blood Pressure O2 Sat by Pulse Oximetry Medical Decision Making - Lab Data Result diagrams: 11/02/17 00:35 <Arnol Dia - Last Filed: 11/02/17 00:54> - Lab Data Result diagrams: 11/02/17 00:35 11/02/17 00:35 <Erik Louie - Last Filed: 11/02/17 05:07> - Medical Decision Making Medical decision making; this is a 57-year-old female with multiple complaints. The first being a floater in her right eye. Neck she complained of cervical radiculopathy to her left arm. And then abdominal pain across the abdomen where she has several reducible hernias. Also past history of diverticulitis. The patient's labs show white count 8.9 hemoglobin 13 hematocrit of 31. Urine shows large leuk esterase with 3 red blood cells and 13 white blood cells. X-ray of the abdomen was done and reviewed by radiologist his impression is bowel gas pattern is normal. There is no sign of intestinal obstruction or pneumoperitoneum. Fecal pattern is normal. There is a right hip prosthesis. Lung bases are clear. There is slight loss of height of L1 vertebra. There are no pathologic calcifications over the kidneys. Lung bases are clear. Impression; nonacute abdomen. As read by Dr. Das. X-ray of the right foot was reviewed by radiologist his findings are there are multiple pins fixing tarsometatarsal joints. There are 2 screws fixing the old osteotomy of the calcaneus. There are plantar and Achilles calcaneal spurs. There is irregularity of the head the proximal phalanx of the little toe consistent with a small medial chip fracture. Impression previous surgery. There is a small chip fracture of the medial head of the proximal phalanx of the little toe. As read by Dr. Das Once labs are back including BUN and creatinine. The patient will have a CT of the abdomen either with or without IV and oral contrast to evaluate increased abdominal pain. Final disposition will be determined by Dr. Louie (Arnol Dia) Receive this patient has a sign out pending the results of the CT study. I was directed to have the patient admitted for observation for the abdominal pain and to also have consultation with ophthalmology. (Erik Louie) - Lab Data Lab Results 11/02/17 11/02/17 11/02/17 Range/Units 00:00 00:35 00:35 WBC 8.9 (3.8-10.6) k/uL RBC 4.44 (3.80-5.40) m/uL Hgb 13.6 (11.4-16.0) gm/dL Hct 41.6 (34.0-46.0) % MCV 93.7 (80.0-100.0) fL MCH 30.5 (25.0-35.0) pg MCHC 32.6 (31.0-37.0) g/dL RDW 13.9 (11.5-15.5) % Plt Count 234 (150-450) k/uL Neutrophils % 42 % Lymphocytes % 46 % Monocytes % 5 % Eosinophils % 3 % Basophils % 0 % Neutrophils # 3.7 (1.3-7.7) k/uL Lymphocytes # 4.1 (1.0-4.8) k/uL Monocytes # 0.5 (0-1.0) k/uL Eosinophils # 0.2 (0-0.7) k/uL Basophils # 0.0 (0-0.2) k/uL Sodium 139 (137-145) mmol/L Potassium 4.3 (3.5-5.1) mmol/L Chloride 103 (98-107) mmol/L Carbon Dioxide 24 (22-30) mmol/L Anion Gap 12 mmol/L BUN 24 H (7-17) mg/dL Creatinine 0.90 (0.52-1.04) mg/dL Est GFR (CKD-EPI)AfAm 81 (>60 ml/min/1.73 sqM) Est GFR (CKD-EPI)NonAf 71 (>60 ml/min/1.73 sqM) Glucose 87 (74-99) mg/dL Lactic Ac Sepsis Rflx Plasma Lactic Acid Hosea (0.7-2.0) mmol/L Calcium 10.1 (8.4-10.2) mg/dL Total Bilirubin 0.6 (0.2-1.3) mg/dL AST 44 H (14-36) U/L ALT 47 (9-52) U/L Alkaline Phosphatase 65 (38-126) U/L Total Protein 8.5 H (6.3-8.2) g/dL Albumin 4.9 (3.5-5.0) g/dL Amylase 77 (30-110) U/L Lipase 207 (23-300) U/L Urine Color Light Yellow Urine Appearance Clear (Clear) Urine pH 6.0 (5.0-8.0) Ur Specific Winter 1.009 (1.001-1.035) Urine Protein Negative (Negative) Urine Glucose (UA) Negative (Negative) Urine Ketones Negative (Negative) Urine Blood Negative (Negative) Urine Nitrite Negative (Negative) Urine Bilirubin Negative (Negative) Urine Urobilinogen <2.0 (<2.0) mg/dL Ur Leukocyte Esterase Large H (Negative) Urine RBC 3 (0-5) /hpf Urine WBC 13 H (0-5) /hpf Ur Squamous Epith Cells 3 (0-4) /hpf Urine Mucus Rare H (None) /hpf 11/02/17 11/02/17 11/02/17 Range/Units 00:35 01:03 04:19 WBC (3.8-10.6) k/uL RBC (3.80-5.40) m/uL Hgb (11.4-16.0) gm/dL Hct (34.0-46.0) % MCV (80.0-100.0) fL MCH (25.0-35.0) pg MCHC (31.0-37.0) g/dL RDW (11.5-15.5) % Plt Count (150-450) k/uL Neutrophils % % Lymphocytes % % Monocytes % % Eosinophils % % Basophils % % Neutrophils # (1.3-7.7) k/uL Lymphocytes # (1.0-4.8) k/uL Monocytes # (0-1.0) k/uL Eosinophils # (0-0.7) k/uL Basophils # (0-0.2) k/uL Sodium (137-145) mmol/L Potassium (3.5-5.1) mmol/L Chloride (98-107) mmol/L Carbon Dioxide (22-30) mmol/L Anion Gap mmol/L BUN (7-17) mg/dL Creatinine (0.52-1.04) mg/dL Est GFR (CKD-EPI)AfAm (>60 ml/min/1.73 sqM) Est GFR (CKD-EPI)NonAf (>60 ml/min/1.73 sqM) Glucose (74-99) mg/dL Lactic Ac Sepsis Rflx Y Plasma Lactic Acid Hosea 2.1 H* 1.7 (0.7-2.0) mmol/L Calcium (8.4-10.2) mg/dL Total Bilirubin (0.2-1.3) mg/dL AST (14-36) U/L ALT (9-52) U/L Alkaline Phosphatase (38-126) U/L Total Protein (6.3-8.2) g/dL Albumin (3.5-5.0) g/dL Amylase (30-110) U/L Lipase (23-300) U/L Urine Color Urine Appearance (Clear) Urine pH (5.0-8.0) Ur Specific Winter (1.001-1.035) Urine Protein (Negative) Urine Glucose (UA) (Negative) Urine Ketones (Negative) Urine Blood (Negative) Urine Nitrite (Negative) Urine Bilirubin (Negative) Urine Urobilinogen (<2.0) mg/dL Ur Leukocyte Esterase (Negative) Urine RBC (0-5) /hpf Urine WBC (0-5) /hpf Ur Squamous Epith Cells (0-4) /hpf Urine Mucus (None) /hpf Disposition <Arnol Dia - Last Filed: 11/02/17 00:54> Is patient prescribed a controlled substance at d/c from ED?: No <Erik Louie - Last Filed: 11/02/17 05:07> Clinical Impression: Abdominal pain, Reduced visual acuity Disposition: ADMITTED IP TO THIS HOSP Condition: Fair Instructions: Abdominal Pain (ED) Referrals: Junior Delgado MD [Primary Care Provider] - 1-2 days
[2017-11-02 00:29] LABS: Appearance,Urine Clear (Clear); Bilirubin,Urine Negative (Negative); Blood,Urine Negative (Negative); Color,Urine Light Yellow; Glucose,Urine (UA) Negative (Negative); Ketones,Urine Negative (Negative); Leukocyte Esterase,Urine Large (Negative); Mucus,Urine Rare /hpf; Nitrite,Urine Negative (Negative); Protein,Urine Negative (Negative); RBC,Urine 3 /hpf (0-5); Specific Gravity,Urine 1.009 (1.001-1.035); Squamous Epithelial Cell,Urine 3 /hpf (0-4); Urobilinogen,Urine <2.0 mg/dL (<2.0); WBC,Urine 13 /hpf (0-5)
[2017-11-02] MEDS: ONDANSETRON 4 MG/2 ML VIAL IVP STA ×2 (00:37→03:08)
--- NOTE | 2017-11-02 00:39 | XR ---
EXAMINATION TYPE: XR abdomen 2V DATE OF EXAM: 11/02/2017 COMPARISON: NONE HISTORY: Abdominal pain TECHNIQUE: 2 upright views and supine view FINDINGS: Bowel gas pattern is normal. There is no sign of intestinal obstruction or pneumoperitoneum . Fecal pattern is normal. There is right hip prosthesis. Lung bases are clear. There is slight loss of height of L1 vertebra. There are no pathologic calcifications over the kidneys. Lung bases are chapin ar. IMPRESSION: Nonacute abdomen.
--- NOTE | 2017-11-02 00:41 | XR ---
EXAMINATION TYPE: XR foot complete RT DATE OF EXAM: 11/02/2017 COMPARISON: 06/06/2016 HISTORY: Foot pain TECHNIQUE: 3 views FINDINGS: There are multiple pins fixing the tarsometatarsal joints. There are 2 screws fixing old os teotomy of the calcaneus. There are plantar and Achilles calcaneal spurs. There is irregularity of t he head of the proximal phalanx of the little toe consistent with small medial chip fracture. IMPRESSION: Previous surgery. There is a small chip fracture of the medial head of the proximal phala nx of the little toe..
[2017-11-02 00:48] LABS: Basophils % (A) 0 %; Eosinophils # (A) 0.2 k/uL (0-0.7); Eosinophils % (A) 3 %; HCT 41.6 % (34.0-46.0); HGB 13.6 gm/dL (11.4-16.0); Lymphocytes # (A) 4.1 k/uL (1.0-4.8); Lymphocytes % (A) 46 %; MCH 30.5 pg (25.0-35.0); MCHC 32.6 g/dL (31.0-37.0); MCV 93.7 fL (80.0-100.0); Mean Platelet Volume 7.5; Monocytes # (A) 0.5 k/uL (0-1.0); Monocytes % (A) 5 %; Neutrophils # (A) 3.7 k/uL (1.3-7.7); Neutrophils % (A) 42 %; Platelet Count 234 k/uL (150-450); RBC 4.44 m/uL (3.80-5.40); RDW 13.9 % (11.5-15.5); WBC 8.9 k/uL (3.8-10.6)
[2017-11-02 01:00] LABS: Albumin 4.9 g/dL (3.5-5.0); Calcium 10.1 mg/dL (8.4-10.2); Potassium 4.3 mmol/L (3.5-5.1); Total Bilirubin 0.6 mg/dL (0.2-1.3); Total Protein 8.5 g/dL (6.3-8.2)
[2017-11-02] MEDS ORDERED: LEVOFLOXACIN 500MG-D5W PMX 500 MG in DEXTROSE/WATER 1 100ML.BAG IVPB STA (01:04)
[2017-11-02] MEDS ORDERED: IOPAMIDOL-300 CONTRAST 30 ML VIAL (ORAL USE) PO PRN (01:05)
[2017-11-02] MEDS ORDERED: SODIUM CHLORIDE 0.9% 1,000 ML IV ONE (01:07)
[2017-11-02] MEDS ORDERED: ONDANSETRON 4 MG/2 ML VIAL IVP STA (03:04)
[2017-11-02] MEDS ORDERED: diphenhydrAMINE 50 MG CAP PO STA (03:28)
--- NOTE | 2017-11-02 03:51 | CT ---
EXAMINATION TYPE: CT abdomen pelvis w con DATE OF EXAM: 11/02/2017 COMPARISON: 04/25/2017 HISTORY: gen abd pain, left flank pain, and UTI following round of antibiotics, history of diverticul itis and ventral hernias CT DLP: 1530.00 mGycm Automated exposure control for dose reduction was used. TECHNIQUE: Helical acquisition of images was performed from the lung bases through the pelvis. CONTRAST: Performed with Oral Contrast and with IV Contrast, patient injected with 100 mL of Isovue 300. FINDINGS: Lung bases are clear of consolidation. There is no pleural effusion. Heart size is normal. There is f atty infiltration of the liver. Bile ducts are not dilated. Gallbladder is contracted. Spleen and baron creas appear normal. There is 3 cm low-density left adrenal mass. The kidneys show satisfactory contrast opacification. Th ere is no hydronephrosis. There is 2 cm cortical cyst on the lateral right kidney. There is no retrop eritoneal adenopathy. There is a large ventral hernia that contains large and small bowel. There is n o evidence of a bowel obstruction. Bladder distends smoothly. There is no evidence of a pelvic mass. There are multiple surgical clips involving sigmoid colon. Appendix is not seen. There is no sign of appendicitis. IMPRESSION: FATTY INFILTRATION OF THE LIVER. LOW-DENSITY LEFT ADRENAL MASS IS STABLE COMPARED TO OLD EXAM AND CON SISTENT WITH BENIGN DISEASE. STABLE RIGHT RENAL CORTICAL CYST. LARGE BROAD-BASED VENTRAL HERNIA WITHOUT EVIDENCE OF A BOWEL OBSTRU CTION. NO CHANGE. PREVIOUS SURGERY. NO ACUTE ABNORMALITY IN THE ABDOMEN AND PELVIS.
[2017-11-02] MEDS ORDERED: ACETAMINOPHEN TAB 325 MG TAB PO PRN (05:01)
[2017-11-02] MEDS ORDERED: NALOXONE 0.4 MG/ML 1 ML VIAL IV PRN (05:01)
[2017-11-02] MEDS ORDERED: traMADol 50 MG TAB PO PRN (05:04)
[2017-11-02] MEDS ORDERED: ALBUTEROL NEBULIZED 2.5 MG/3 ML INHALATION PRN (05:04)
[2017-11-02] MEDS ORDERED: SODIUM CHLORIDE 0.9% 1,000 ML IV SCH (05:15)
[2017-11-02 06:17] LABS: Glucose,Whole Blood 206 mg/dL (75-99)
[2017-11-02] MEDS ORDERED: glipiZIDE 5 MG TAB PO SCH (07:30)
[2017-11-02] MEDS ORDERED: DICYCLOMINE 10 MG CAP PO SCH (07:30)
[2017-11-02 07:35] VITALS: BP 156/85; PULSE 85; RESP 18; TEMP 98.4
[2017-11-02] MEDS ORDERED: IPRATROPIUM-ALBUTEROL 3 ML NEB INHALATION SCH (08:00)
[2017-11-02] MEDS ORDERED: TRIAMTERENE-HCTZ 75-50MG 1 EACH TAB PO SCH (09:00)
[2017-11-02] MEDS ORDERED: PANTOPRAZOLE 40 MG TABLET PO SCH (09:00)
[2017-11-02] MEDS ORDERED: DOCUSATE 100 MG CAP PO SCH (09:00)
[2017-11-02] MEDS ORDERED: ALPRAZolam 1 MG TAB PO SCH (09:00)
[2017-11-02] MEDS ORDERED: ONDANSETRON 4 MG TAB PO PRN (09:00)
[2017-11-02] MEDS ORDERED: metFORMIN 500 MG TAB PO SCH (09:00)
[2017-11-02] MEDS ORDERED: GABAPENTIN 100 MG CAP PO SCH (09:00)
--- NOTE | 2017-11-02 10:02 | HP ---
HISTORY AND PHYSICAL CHIEF COMPLAINT: A 57-year-old white female admitted with acute vision changes, floaters in her right eye, severe abdominal pain, diverticulitis, ventral hernias in the past, hip surgery 6 months ago, chronic back pain, but possible TIA versus stroke due to acute vision changes. HOME MEDICATIONS: 1. Singulair. 2. Glucotrol XL. 3. Maxzide. 4. Bentyl. 5. Fluticasone. 6. Toujeo. 7. ProAir. 8. Colace. 9. Bydureon. 10.Neurontin. 11.Zofran. 12.Ventolin. ALLERGIES: 1. ADHESIVE TAPE. 2. ASPARAGUS. 3. ASPIRIN. 4. ROCEPHIN. 5. PENICILLIN. 6. PERFUME. 7. DUST. 8. HAY. REVIEW OF SYSTEMS: Fourteen-point review of systems negative except for mentioned in HPI. PAST MEDICAL HISTORY: 1. Diabetes mellitus. 2. Asthma. 3. GERD. 4. Dyslipidemia. 5. Hypertension. 6. Liver disease. 7. Ventral hernias. 8. Avascular necrosis of the hips. 9. Osteoarthritis. 10.DeQuervain disease. 11.Trigger fingers. 12.Recent right hip replacement. FAMILY HISTORY: Mother with coronary artery disease, myocardial infarction, hypothyroidism and cancer. Father with diabetes mellitus, CHF, DVTs, pulmonary embolism. PHYSICAL EXAMINATION: Temperature 98.1, pulse 70s to 80s, respiratory rate 15 to 18, blood pressure 120s to 170s over 70s to 80s, oxygen 95% to 97% on room air. HEENT: Normocephalic, atraumatic. OPHTHALMOLOGIC: Pupils equal, round, reactive to light and accommodation. NEUROLOGIC: Alert and oriented x3. PSYCH: Fair mood and affect. GI: Distended due to obesity. She has ventral hernias, diverticulosis. X-rays of the right foot show multiple pins fixing the tarsometatarsal joints, 2 screws fixing old osteotomy of the calcaneus. ASSESSMENT: 1. Reduced visual acuity. 2. Acute abdominal pain. Current physical therapy clearance prior to discharge by Surgery and Ophthalmology. MMODL / IJN: [id number] /
--- NOTE | 2017-11-02 14:18 | CONS ---
CONSULTATION DATE OF SERVICE: 11/02/2017. OPHTHALMOLOGY CONSULT: CHIEF COMPLAINT: Ms. Garcia is a 57-year-old female who has noticed a floater in the right eye for 1 week. This has been mostly consistent during that time. No associated flashes or visual loss. There is no associated pain. The floaters are described as mild. There are no alleviating factors. REVIEW OF SYSTEMS: Patient also notes neck pain and pain in her toe. There is no shortness of breath or other contributing symptoms on review of systems reviewed. HOME MEDICATIONS: 1. Singulair. 2. Glucotrol XL. 3. Maxzide. 4. Bentyl. 5. Fluticasone. 6. ProAir. 7. Colace. 8. Neurontin. 9. Zofran. 10.Ventolin. ALLERGIES: ADHESIVE TAPE, ASPARAGUS, ASPIRIN, ROCEPHIN, PENICILLIN, HAY, DUST. PAST MEDICAL HISTORY: Significant history of diabetes mellitus type 2, asthma, gastroesophageal reflux disease, dyslipidemia, hypertension, liver disease, ventral hernias, avascular necrosis of the hips, osteoarthritis. FAMILY HISTORY: Significant for history of myocardial infarction in her mother and coronary artery disease in her mother and diabetes mellitus and congestive heart failure in her father. There is no ophthalmic family history. SOCIAL HISTORY: Noncontributory. OPHTHALMIC SURGICAL HISTORY: The patient denies ophthalmic surgery. OPHTHALMIC EXAMINATION: Visual acuity is 20/40 at near with correction in the right eye and 20/30 at near with correction of the left eye. Intra-ocular pressure is soft to palpation. Pressure is normal Steven-Pen applanation. Pupils are equal, round, and reactive to light. There is no afferent pupillary defect. Extraocular movements are full. Confrontation visual thorpe are full in both eyes. Lids and lashes are within normal limits. Conjunctiva is white. The cornea is clear. Anterior chamber is within normal limits. There is mild nuclear sclerotic cataract in both lens. Posterior examination reveals a vitreous detachment in the right eye. Vascular detail is difficult due to limited exam; however, but no proliferative diabetic retinopathy is noted in either eye. ASSESSMENT AND PLAN: 1. Posterior vitreous detachment, right eye. There are no tears or breaks of the peripheral retina. The patient does need further evaluation as an outpatient in the office for scleral depressed retinal exam. However, complete retinal exam at the bedside reveals no retinal tears or breaks. 2. Diabetes mellitus type 2 with mild nonproliferative changes in both retinas. Recommend continued blood sugar control under the excellent care of Dr. Delgado. Will need followup as an outpatient in the future. 3. Nuclear sclerotic cataract, both eyes. This does not appear significant. Can be observed for now. I recommend evaluation in my office in approximately 1 week for dilated examination. Thank you for allowing me to participate in this patient's care. MMODL / IJN: [id number] /
[2017-11-02] MEDS ORDERED: RIVAROXABAN 10 MG TAB PO SCH (17:00)
[2017-11-02] MEDS ORDERED: MONTELUKAST 10 MG TAB PO SCH (21:00)
== END 2017-11-02 11:22 | disposition home or self-care (01) ==
LOC: EC 20:43 → 4MS4W 11-02 05:04
PROVIDERS: ADMIT Family Medicine; ATTEND Family Medicine
DX: H43.811 Vitreous degeneration, right eye (principal); H43.391 Other vitreous opacities, right eye; H25.13 Age-related nuclear cataract, bilateral; R10.9 Unspecified abdominal pain; E11.3293 Type 2 diabetes mellitus with mild nonproliferative diabetic retinopathy without macular edema, bilateral; M77.31 Calcaneal spur, right foot; K21.9 Gastro-esophageal reflux disease without esophagitis; K57.90 Diverticulosis of intestine, part unspecified, without perforation or abscess without bleeding; K43.9 Ventral hernia without obstruction or gangrene; G89.29 Other chronic pain; M54.2 Cervicalgia; M54.9 Dorsalgia, unspecified; J45.909 Unspecified asthma, uncomplicated; E78.5 Hyperlipidemia, unspecified; M54.12 Radiculopathy, cervical region; I10 Essential (primary) hypertension; E11.40 Type 2 diabetes mellitus with diabetic neuropathy, unspecified; F12.90 Cannabis use, unspecified, uncomplicated; M79.674 Pain in right toe(s); K76.9 Liver disease, unspecified; M87.9 Osteonecrosis, unspecified; F41.9 Anxiety disorder, unspecified; F32.9 Major depressive disorder, single episode, unspecified; F40.240 Claustrophobia; M19.90 Unspecified osteoarthritis, unspecified site; M65.4 Radial styloid tenosynovitis [de Quervain]; Z79.899 Other long term (current) drug therapy; Z79.84 Long term (current) use of oral hypoglycemic drugs; Z79.51 Long term (current) use of inhaled steroids; Z79.01 Long term (current) use of anticoagulants; Z88.6 Allergy status to analgesic agent; Z88.1 Allergy status to other antibiotic agents; Z88.0 Allergy status to penicillin; Z91.018 Allergy to other foods; Z91.048 Other nonmedicinal substance allergy status; Z90.89 Acquired absence of other organs; Z87.01 Personal history of pneumonia (recurrent); Z87.11 Personal history of peptic ulcer disease; Z87.442 Personal history of urinary calculi; Z96.641 Presence of right artificial hip joint; Z87.891 Personal history of nicotine dependence; Z80.1 Family history of malignant neoplasm of trachea, bronchus and lung; Z80.8 Family history of malignant neoplasm of other organs or systems; Z83.2 Family history of diseases of the blood and blood-forming organs and certain disorders involving the immune mechanism; Z82.49 Family history of ischemic heart disease and other diseases of the circulatory system; Z83.3 Family history of diabetes mellitus; Z83.49 Family history of other endocrine, nutritional and metabolic diseases
CPT/HCPCS: 99285 ×2; 96365 ×2; 96366 ×4; 96375 ×2; 96376 ×2; 96361 ×2; 36415; 80053; 82150; 83605; 83690; 85025; 81001; 87086; 73630; 74019; 74177; G0378; J2405; J1956; Q9967

== ENCOUNTER → 2018-02-26 | Outpatient (CLI) | payer MEDICARE, OTHER ==
--- NOTE | 2018-02-26 15:41 | US ---
EXAMINATION TYPE: US kidneys/renal and bladder DATE OF EXAM: 02/26/2018 COMPARISON: US, CT, & MRI CLINICAL HISTORY: N28.1 Renal cyst. Renal cyst EXAM MEASUREMENTS: Right Kidney: 10.5 x 5.1 x 4.9 cm Left Kidney: 10.2 x 4.8 x 4.3 cm Right Kidney: Cyst mid= 2.0 x 1.7 x 1.9 cm Left Kidney: Kidney appeared wnl, probable left adrenal mass as seen on previous CT= 3.5 x 2.4 cm Bladder: Not fully distended, however visualized portions appeared wnl Bilateral Jets seen: No There is no evidence for hydronephrosis at this point in time. No nephrolithiasis is seen. No jeny s are identified. The urinary bladder is anechoic. Bilateral ureteral jets are seen. IMPRESSION: 1. Nonspecific left adrenal mass. 2. Simple appearing right renal cyst.
== END | disposition home or self-care (01) ==
LOC: RADUSWWP 14:59
PROVIDERS: ATTEND Family Medicine
DX: N28.1 Cyst of kidney, acquired (principal); E27.8 Other specified disorders of adrenal gland
CPT/HCPCS: 76770

== ENCOUNTER → 2018-07-04 | Outpatient (CLI) | payer MEDICARE, OTHER ==
[2018-07-04 14:11] LABS: Appearance,Urine Clear (Clear); Bilirubin,Urine Negative (Negative); Blood,Urine Negative (Negative); Color,Urine Yellow; Glucose,Urine (UA) Negative (Negative); Ketones,Urine Negative (Negative); Leukocyte Esterase,Urine Small (Negative); Nitrite,Urine Negative (Negative); Protein,Urine 1+ (Negative); Specific Gravity,Urine 1.019 (1.001-1.035); Squamous Epithelial Cell,Urine <1 /hpf (0-4); Urobilinogen,Urine <2.0 mg/dL (<2.0); WBC,Urine <1 /hpf (0-5)
[2018-07-04 14:39] LABS: Basophils # (A) 0.1 k/uL (0-0.2); Basophils % (A) 1 %; Eosinophils # (A) 0.5 k/uL (0-0.7); Eosinophils % (A) 5 %; HCT 40.6 % (34.0-46.0); HGB 13.4 gm/dL (11.4-16.0); Lymphocytes # (A) 2.9 k/uL (1.0-4.8); Lymphocytes % (A) 33 %; MCH 30.4 pg (25.0-35.0); Mean Platelet Volume 9.8; Monocytes # (A) 0.4 k/uL (0-1.0); Monocytes % (A) 4 %; Neutrophils # (A) 4.9 k/uL (1.3-7.7); Neutrophils % (A) 54 %; Platelet Count 244 k/uL (150-450); RBC 4.41 m/uL (3.80-5.40); RDW 15.2 % (11.5-15.5)
[2018-07-04 19:12] LABS: Anion Gap 12.6 mmol/L (4.00-12.00); Carbon Dioxide 26.4 mmol/L (21.6-31.8); Potassium 4.3 mmol/L (3.5-5.5)
== END ==
LOC: LABWHC1 12:03
PROVIDERS: ATTEND Family Medicine
DX: B89 Unspecified parasitic disease (principal); I10 Essential (primary) hypertension; N39.0 Urinary tract infection, site not specified; Z79.899 Other long term (current) drug therapy
CPT/HCPCS: 36415; 80051; 81001; 82565; 83605; 83690; 84520; 85025; 87086

== ENCOUNTER → 2018-07-21 | Outpatient (CLI) | payer MEDICARE, OTHER ==
--- NOTE | 2018-07-21 14:00 | XR ---
Cervical spine with flexion and extension views history: Status post anterior cervical fusion and discectomy 7 views of the cervical spine Lateral extension of endplates causes some foraminal encroachment at C5-6 and C6-7 on the left. There is multilevel spondylosis. Anterolisthesis grade 1 C4-5. C7-T1 not well seen. No change in listhesis on flexion and extension views. Postop changes noted to the mandible. Mild facet arthropathy changes noted. IMPRESSION: Postop findings as described.
== END | disposition home or self-care (01) ==
LOC: RADXRMAIN 11:44
PROVIDERS: ATTEND Neurological Surgery
DX: M50.022 Cervical disc disorder at C5-C6 level with myelopathy (principal); M47.22 Other spondylosis with radiculopathy, cervical region; Z98.1 Arthrodesis status; Z98.890 Other specified postprocedural states
CPT/HCPCS: 72052

== ENCOUNTER → 2018-08-28 | Outpatient (CLI) | payer MEDICARE, OTHER ==
--- NOTE | 2018-08-28 10:20 | US ---
EXAMINATION TYPE: US bladder DATE OF EXAM: 08/28/2018 COMPARISON: NONE CLINICAL HISTORY: R33.9 Urine Retention. Retention of urine EXAM MEASUREMENTS: Post Void Residual Volume: 10.1 mL Color Doppler performed to assess ureteral jets. Bilateral Jets seen: yes Normal Post Void Residual (less than 50ml): yes IMPRESSION: 1. Normal urinary bladder ultrasound. No urinary retention is evident.
== END | disposition home or self-care (01) ==
LOC: RADUSWWP 09:35
PROVIDERS: ATTEND Family Medicine
DX: R33.9 Retention of urine, unspecified (principal)
CPT/HCPCS: 76857

== ENCOUNTER 2018-12-11 11:32 | Inpatient (IN) | payer MEDICARE, OTHER ==
[2018-12-11 13:39] VITALS: BMI 37.2
[2018-12-11 13:53] LABS: Glucose,Whole Blood 123 mg/dL (75-99)
[2018-12-11] MEDS ORDERED: FLUTICASONE 50MCG/SPRAY NASAL 16GM EA NOSTRIL PRN (14:27)
[2018-12-11] MEDS ORDERED: LEVOFLOXACIN 500MG-D5W PMX 500 MG in DEXTROSE/WATER 1 100ML.BAG IVPB SCH (15:00)
[2018-12-11 15:01] LABS: Basophils # (A) 0.1 k/uL (0-0.2); Basophils % (A) 1 %; Eosinophils # (A) 0.3 k/uL (0-0.7); Eosinophils % (A) 3 %; HCT 39.4 % (34.0-46.0); HGB 12.9 gm/dL (11.4-16.0); Lymphocytes % (A) 31 %; MCHC 32.9 g/dL (31.0-37.0); MCV 97.2 fL (80.0-100.0); Mean Platelet Volume 7.5; Monocytes # (A) 0.5 k/uL (0-1.0); Monocytes % (A) 5 %; Neutrophils # (A) 5.7 k/uL (1.3-7.7); Neutrophils % (A) 59 %; Platelet Count 233 k/uL (150-450); RBC 4.05 m/uL (3.80-5.40); WBC 9.7 k/uL (3.8-10.6)
[2018-12-11] MEDS: methylPREDNISolone SOD SUCCI 40 MG/ML 1 ML VIAL IV SCH (15:17)
[2018-12-11 15:20] LABS: Albumin 4.3 g/dL (3.5-5.0); Calcium 9.9 mg/dL (8.4-10.2); Potassium 4.1 mmol/L (3.5-5.1); Total Bilirubin 0.2 mg/dL (0.2-1.3); Total Protein 7.5 g/dL (6.3-8.2)
[2018-12-11] MEDS: glipiZIDE 10 MG TAB PO SCH (15:20)
[2018-12-11] MEDS: metFORMIN 500 MG TAB PO SCH (15:20)
[2018-12-11] MEDS: GABAPENTIN 300 MG CAP PO SCH ×2 (15:20→21:00)
[2018-12-11] MEDS: oxyCODONE-APAP 7.5-325MG 1 EACH TAB PO PRN ×2 (15:20→21:43)
[2018-12-11] MEDS: ALBUTEROL NEBULIZED 2.5 MG/3 ML INHALATION PRN ×2 (15:50→20:18)
--- NOTE | 2018-12-11 15:54 | XR ---
EXAMINATION TYPE: XR chest 2V DATE OF EXAM: 12/11/2018 COMPARISON: Prior chest x-ray dated 05/15/2017 HISTORY: Asthma, shortness of breath and cough TECHNIQUE: Frontal and lateral views of the chest are obtained. FINDINGS: There is no focal air space opacity, pleural effusion, or pneumothorax seen. Bronchial wa ll thickening is noted. Linear strand-like densities in the bilateral lung bases may reflect subsegme ntal atelectatic change or scarring. The cardiac silhouette size is stable. The osseous structures are intact. Possible chondroid lesion in the proximal metaphysis the right humerus is likely stable. No step changes are noted to the cervical spine. IMPRESSION: Subsegmental atelectatic changes or scarring. Correlate for bronchitis, reactive airways disease.
[2018-12-11] MEDS: INSULIN ASPART (NovoLOG) 100 UNIT/ML VIAL SQ SCH ×2 (17:21→20:57)
[2018-12-11] MEDS: INSULIN REGULAR 100 UNIT/ML VIAL SQ SCH (17:23)
[2018-12-11 17:34] LABS: Glucose,Whole Blood 160 mg/dL (75-99)
[2018-12-11 20:12] LABS: Glucose,Whole Blood 254 mg/dL (75-99)
[2018-12-11] MEDS: BUDESONIDE 0.5 MG/2 ML NEBU INHALATION SCH (20:18)
[2018-12-11] MEDS: DICYCLOMINE 10 MG CAP PO SCH (20:56)
[2018-12-11] MEDS: AMMONIUM LACTATE 12% LOTION 225 GM BTL TOPICAL SCH (20:56)
[2018-12-11] MEDS: MONTELUKAST 10 MG TAB PO SCH (20:56)
[2018-12-11] MEDS: ALPRAZolam 1 MG TAB PO SCH (20:56)
[2018-12-11] MEDS: INSULIN DETEMIR (LEVEMIR) 100 UNIT/ML SYR SQ SCH (20:57)
--- NOTE | 2018-12-11 22:59 | CONS ---
CONSULTATION Tahmina Garcia is a 58-year-old female who came into the hospital at [facility] from her physician's office. She was having shortness of breath for approximately 2 days' duration. She had somebody move into her immediate dwelling who had moldy clothes as well as moldy bedding. She started to develop a runny nose, cough with wheezing and severe shortness of breath. She was subsequently admitted for further treatment. PAST MEDICAL HISTORY: Her past medical history is positive for: 1. Asthma. 2. Previous neck surgery. 3. History of diabetes mellitus, type 2. 4. Avascular necrosis of the hips. 5. DeQuervain's syndrome. 6. Previous right hip replacement. FAMILY HISTORY: Positive for coronary artery disease and DC in her mother. Father had a history of diabetes mellitus, CHF and blood clots. ALLERGIES: 1. ADHESIVE TAPE. 2. ASPARAGUS. 3. ASPIRIN. 4. ROCEPHIN. 5. PENICILLIN. 6. PERFUMES. 7. DUST. 8. HAY. SOCIAL HISTORY: The patient is a former smoker. She quit in 2013. She does not drink alcohol excessively. MEDICATIONS: Medications prior to admission were: 1. Oxycodone with acetaminophen. 2. Metformin. 3. Glucotrol. 4. Maxzide. 5. Protonix. 6. Oxymetazoline. 7. Singulair. 8. Humulin-R. 9. Toujeo SoloStar. 10.Neurontin. 11.Fluticasone propionate. 12.Colace. 13.Bentyl. 14.Lac-Hydrin. 15.ProAir HFA. 16.Ventolin. 17.Xanax. REVIEW OF SYSTEMS: Noncontributory. PHYSICAL EXAMINATION: Respiratory rate is 20, pulse rate 85, temperature 98.7, blood pressure 145/85. Oxygen saturation on room air is 96%. HEENT reveals pupils that are equal. Chest reveals decreased breath sounds. Prolonged exhalation. Bilateral expiratory wheeze. Cardiovascular system is in S1, S2. No S3. No S4. Abdomen is soft. There is 1+ pedal edema. LABS/IMAGING: White count of 9.7, hemoglobin of 12.9 with 3% eosinophils. Sodium 142, potassium 4.1, chloride 100, bicarb 31, BUN 24, creatinine 1.19. Chest x-ray shows atelectatic changes in the bases. IMPRESSION AT THIS TIME: Severe persistent asthma with acute exacerbation. At this point in time from a pulmonary standpoint, would keep her on IV and aerosolized steroids along with montelukast. Would keep her on insulin sliding scale as well as oral hypoglycemics. Optimize the fluid status. Agree with keeping her on Levaquin. Check peak flows and give her a peak flow meter. Depending on how she does, we shall make further changes to her care. Keep her on GI and DVT prophylaxis. I would like to thank you for allowing me the privilege of participating in her care. MMODL / IJN: [id number] /
[2018-12-12] MEDS: methylPREDNISolone SOD SUCCI 40 MG/ML 1 ML VIAL IV SCH ×3 (00:41→15:41)
[2018-12-12] MEDS: FAMOTIDINE 20 MG TAB PO SCH ×3 (00:41→07:43)
[2018-12-12] MEDS: oxyCODONE-APAP 7.5-325MG 1 EACH TAB PO PRN ×3 (05:24→20:10)
[2018-12-12 07:13] LABS: Glucose,Whole Blood 285 mg/dL (75-99)
[2018-12-12] MEDS: ALBUTEROL NEBULIZED 2.5 MG/3 ML INHALATION PRN ×4 (07:15→19:30)
[2018-12-12] MEDS: BUDESONIDE 0.5 MG/2 ML NEBU INHALATION SCH ×2 (07:15→19:30)
[2018-12-12] MEDS: INSULIN ASPART (NovoLOG) 100 UNIT/ML VIAL SQ SCH ×4 (07:35→21:35)
[2018-12-12] MEDS: INSULIN REGULAR 100 UNIT/ML VIAL SQ SCH ×3 (07:35→17:35)
[2018-12-12] MEDS: ALPRAZolam 1 MG TAB PO SCH ×2 (07:36→21:35)
[2018-12-12] MEDS: DICYCLOMINE 10 MG CAP PO SCH ×2 (07:36→20:09)
[2018-12-12] MEDS: GABAPENTIN 300 MG CAP PO SCH ×4 (07:36→21:35)
[2018-12-12] MEDS: glipiZIDE 10 MG TAB PO SCH ×2 (07:37→17:34)
[2018-12-12] MEDS: DOCUSATE 100 MG CAP PO SCH (07:37)
[2018-12-12] MEDS: metFORMIN 500 MG TAB PO SCH ×2 (07:37→17:34)
[2018-12-12] MEDS: ONDANSETRON 4 MG/2 ML VIAL IVP PRN (07:37)
[2018-12-12] MEDS: PANTOPRAZOLE 40 MG TABLET PO SCH (07:37)
[2018-12-12] MEDS: TRIAMTERENE-HCTZ 75-50MG 1 EACH TAB PO SCH (07:37)
[2018-12-12] MEDS: AMMONIUM LACTATE 12% LOTION 225 GM BTL TOPICAL SCH ×2 (07:41→21:39)
[2018-12-12] MEDS ORDERED: FAMOTIDINE 20 MG TAB PO SCH (09:00)
[2018-12-12 12:10] LABS: Glucose,Whole Blood 251 mg/dL (75-99)
--- NOTE | 2018-12-12 13:51 | PN ---
PROGRESS NOTE She was seen on 12/12/2018. She has been hemodynamically stable. She continues to feel quite short of breath. PHYSICAL EXAMINATION: On physical examination, she is in mild respiratory distress. Her blood pressure is 129/77, respiratory rate of 14, pulse rate of 89, temperature 98 degrees Fahrenheit, O2 saturation on room air is 100%. HEENT reveals pupils that are equal. Chest reveals prolonged exhalation with expiratory wheeze. Cardiovascular system reveals S1, S2. Abdomen is soft. There is no edema. IMPRESSION AT THIS TIME: 1. Asthma with acute exacerbation. 2. Diabetes mellitus. Continue IV and aerosolized steroids. Continue Levaquin. Keep her on GI and DVT prophylaxis. Check peak flows if able to. MMODL / IJN: [id number] /
[2018-12-12] MEDS ORDERED: LEVOFLOXACIN 250MG-D5W PMX 250 MG in DEXTROSE/WATER 1 50ML.BAG IVPB SCH (15:00)
--- NOTE | 2018-12-12 15:54 | P.PN ---
Progress Note - Text Progress Note Date: 12/12/18 At discharge patient will need nebulizer, glucometer, as well as gelpad for wheelchair secondary to immobility syndrome. Please refer to further documentation in H&P/progress notes. The impression and plan of care has been dictated as directed. : I performed a history and examination of this patient, discussed the same with the dictator. I agree with the dictator's note ,documented as a scribe. Any additional findings or plans will be noted.
[2018-12-12] MEDS: ACETAMINOPHEN TAB 325 MG TAB PO PRN (15:56)
[2018-12-12 16:53] LABS: Glucose,Whole Blood 260 mg/dL (75-99)
[2018-12-12 19:02] LABS: Hemoglobin A1C 8.4 % (4.0-6.0)
--- NOTE | 2018-12-12 20:03 | HP ---
HISTORY AND PHYSICAL [id number] white female came in with shortness of breath, cough, congestion, wheezing. She has been exposed to some moldy materials at home. She is admitted for failed outpatient treatment with updraft treatments, steroids, antibiotics. PAST MEDICAL HISTORY: 1. Asthma. 2. Neck surgery. 3. Ventral hernias. 4. Avascular necrosis of the hips. 5. Diabetes mellitus. 6. De Quervain syndrome. 7. Hip replacement. FAMILY HISTORY: Coronary artery disease, diabetes mellitus, CHF, blood clots. ALLERGIES: 1. ADHESIVE TAPE. 2. ASPIRIN. 3. ASPARAGUS. 4. ROCEPHIN. 5. PENICILLIN. 6. PERFUMES. 7. DUST. 8. HAY. SOCIAL HISTORY: Former smoker. No alcohol. MEDICATIONS: 1. Oxycodone. 2. Metformin. 3. Glucotrol. 4. Maxzide. 5. Protonix. 6. Oxymetazoline. 7. Singulair. 8. Humulin-R. 9. Toujeo. 10.Neurontin. 11.Fluticasone. 12.Colace. 13.Bentyl. 14.Lac-Hydrin. 15.ProAir HFA. 16.Xanax. PHYSICAL EXAMINATION: LUNGS: Scattered wheeze and rhonchi x4. HEMATOLOGY: Negative Homans. PSYCH: Fair mood and affect. NEUROLOGIC: Alert and oriented x3. OPHTHALMOLOGICAL: Pupils equal, round, reactive to light and accommodation. CARDIOVASCULAR: S1, S2. NECK: No adenopathy. ASSESSMENT: 1. Severe persistent asthma with acute exacerbation. 2. Acute tracheobronchitis. IV steroids. IV antibiotics. Updraft treatments. 3. Diabetes mellitus. Continue current treatments. Please see further pulmonary recommendations. MMODL / IJN: [id number] /
[2018-12-12] MEDS: MONTELUKAST 10 MG TAB PO SCH (20:09)
[2018-12-12] MEDS: LATANOPROST 0.005% OPHTH DROPS 2.5 ML BTL BOTH EYES SCH (20:09)
[2018-12-12 20:55] LABS: Glucose,Whole Blood 248 mg/dL (75-99)
[2018-12-12] MEDS ORDERED: LATANOPROST 0.005% OPHTH DROPS 2.5 ML BTL BOTH EYES SCH (21:00)
[2018-12-12] MEDS: INSULIN DETEMIR (LEVEMIR) 100 UNIT/ML SYR SQ SCH (21:35)
[2018-12-13] MEDS: methylPREDNISolone SOD SUCCI 40 MG/ML 1 ML VIAL IV SCH ×4 (00:29→23:43)
[2018-12-13] MEDS: oxyCODONE-APAP 7.5-325MG 1 EACH TAB PO PRN ×3 (05:14→20:05)
[2018-12-13] MEDS: ONDANSETRON 4 MG/2 ML VIAL IVP PRN (06:00)
[2018-12-13 07:14] LABS: Glucose,Whole Blood 330 mg/dL (75-99)
[2018-12-13] MEDS: TRIAMTERENE-HCTZ 75-50MG 1 EACH TAB PO SCH (07:31)
[2018-12-13] MEDS: INSULIN REGULAR 100 UNIT/ML VIAL SQ SCH ×3 (07:32→17:22)
[2018-12-13] MEDS: INSULIN ASPART (NovoLOG) 100 UNIT/ML VIAL SQ SCH ×4 (07:32→20:57)
[2018-12-13] MEDS: FAMOTIDINE 20 MG TAB PO SCH (07:34)
[2018-12-13] MEDS: ALPRAZolam 1 MG TAB PO SCH ×2 (07:34→20:58)
[2018-12-13] MEDS: GABAPENTIN 300 MG CAP PO SCH ×4 (07:34→20:57)
[2018-12-13] MEDS: DOCUSATE 100 MG CAP PO SCH (07:34)
[2018-12-13] MEDS: DICYCLOMINE 10 MG CAP PO SCH ×2 (07:34→20:58)
[2018-12-13] MEDS: glipiZIDE 10 MG TAB PO SCH ×2 (07:34→17:22)
[2018-12-13] MEDS: PANTOPRAZOLE 40 MG TABLET PO SCH (07:34)
[2018-12-13] MEDS: AMMONIUM LACTATE 12% LOTION 225 GM BTL TOPICAL SCH ×2 (07:35→21:14)
[2018-12-13] MEDS: metFORMIN 500 MG TAB PO SCH ×2 (07:35→17:22)
[2018-12-13] MEDS: BUDESONIDE 0.5 MG/2 ML NEBU INHALATION SCH ×2 (07:41→18:58)
[2018-12-13] MEDS: ALBUTEROL NEBULIZED 2.5 MG/3 ML INHALATION PRN ×4 (07:42→18:58)
[2018-12-13] MEDS: BENZOCAINE/MENTHOL LOZENG 1 EACH LOZENGE MUCOUS MEM PRN ×3 (10:40→20:07)
[2018-12-13] MEDS: amLODIPine 5 MG TAB PO SCH ×2 (10:51→20:57)
[2018-12-13 12:09] LABS: Glucose,Whole Blood 375 mg/dL (75-99)
[2018-12-13] MEDS: LEVOFLOXACIN 250 MG TAB PO SCH (12:44)
--- NOTE | 2018-12-13 13:39 | P.PN ---
Subjective Progress Note Date: 12/13/18 Principal diagnosis: Chronic severe persistent asthma with acute exacerbation, chronic pain syndrome, avascular necrosis of the hip, 12/13/2018, patient seen eval reexamined during the rounds labs reviewed medications reviewed care plan discussed with the patient at length still short of breath with intermittent cough and congestion still have patient significant wheezing, patient remains on IV steroids and breathing treatments tolerating very well labs reviewed medications Objective - Vital Signs Vital signs: Vital Signs Temp 97.8 F 12/13/18 04:15 Pulse 95 12/13/18 12:45 Resp 16 12/13/18 04:15 BP 147/92 12/13/18 11:58 Pulse Ox 94 L 12/13/18 04:15 Intake & Output 12/12/18 12/13/18 12/13/18 18:59 06:59 18:59 Intake Total 400 Balance 400 Intake: Oral 400 Other: # Voids 3 2 - Constitutional General appearance: Present: average body habitus, disheveled - EENT Eyes: Present: EOMI, PERRLA ENT: Present: normal oropharynx Ears: bilateral: normal - Neck Carotids: bilateral: upstroke normal Thyroid: bilateral: normal size - Respiratory Respiratory: bilateral: diminished, wheezing, prolonged expiration, negative: CTA, dullness, rales, rhonchi - Cardiovascular Rhythm: regular Heart sounds: normal: S1, S2 - Gastrointestinal General gastrointestinal: Present: normal bowel sounds, soft - Integumentary Integumentary: Present: normal turgor - Musculoskeletal Musculoskeletal: Present: gait normal, generalized weakness, strength equal bilaterally - Psychiatric Psychiatric: Present: A&O x's 3, appropriate affect, intact judgment & insight - Labs CBC & Chem 7: 12/11/18 14:42 12/11/18 14:42 Labs: Abnormal Lab Results - Last 24 Hours (Table) 12/12/18 12/12/18 12/12/18 Range/Units 09:32 16:51 20:54 POC Glucose (mg/dL) 260 H 248 H (75-99) mg/dL Hemoglobin A1c 8.4 H (4.0-6.0) % 12/13/18 12/13/18 Range/Units 07:10 12:07 POC Glucose (mg/dL) 330 H 375 H (75-99) mg/dL Hemoglobin A1c (4.0-6.0) % Assessment and Plan Assessment: Acute asthma exacerbation Severe degree of degenerative joint disease osteoarthritis Chronic pain syndrome Plan: Continue breathing treatments IV steroids Follow clinical course closely Further recommendations pending plan of care as per clinical response of the patient Time with Patient: Greater than 30
[2018-12-13 16:35] LABS: Glucose,Whole Blood 288 mg/dL (75-99)
[2018-12-13] MEDS: ACETAMINOPHEN TAB 325 MG TAB PO PRN (17:24)
[2018-12-13 20:40] LABS: Glucose,Whole Blood 307 mg/dL (75-99)
[2018-12-13] MEDS: MONTELUKAST 10 MG TAB PO SCH (20:57)
[2018-12-13] MEDS: INSULIN DETEMIR (LEVEMIR) 100 UNIT/ML SYR SQ SCH (20:57)
[2018-12-13] MEDS: LATANOPROST 0.005% OPHTH DROPS 2.5 ML BTL BOTH EYES SCH (20:58)
[2018-12-14 07:40] LABS: Glucose,Whole Blood 277 mg/dL (75-99)
[2018-12-14] MEDS: glipiZIDE 10 MG TAB PO SCH ×2 (07:47→18:05)
[2018-12-14] MEDS: metFORMIN 500 MG TAB PO SCH ×2 (07:47→18:05)
[2018-12-14] MEDS: ALPRAZolam 1 MG TAB PO SCH ×2 (07:47→21:53)
[2018-12-14] MEDS: amLODIPine 5 MG TAB PO SCH ×2 (07:47→21:54)
[2018-12-14] MEDS: BENZOCAINE/MENTHOL LOZENG 1 EACH LOZENGE MUCOUS MEM PRN ×4 (07:47→21:52)
[2018-12-14] MEDS: GABAPENTIN 300 MG CAP PO SCH ×4 (07:47→21:53)
[2018-12-14] MEDS: DICYCLOMINE 10 MG CAP PO SCH ×2 (07:48→21:54)
[2018-12-14] MEDS: TRIAMTERENE-HCTZ 75-50MG 1 EACH TAB PO SCH (07:48)
[2018-12-14] MEDS: PANTOPRAZOLE 40 MG TABLET PO SCH (07:48)
[2018-12-14] MEDS: DOCUSATE 100 MG CAP PO SCH (07:48)
[2018-12-14] MEDS: FAMOTIDINE 20 MG TAB PO SCH ×2 (07:48→07:55)
[2018-12-14] MEDS: oxyCODONE-APAP 7.5-325MG 1 EACH TAB PO PRN ×3 (07:49→23:36)
[2018-12-14] MEDS: methylPREDNISolone SOD SUCCI 40 MG/ML 1 ML VIAL IV SCH ×3 (07:49→23:35)
[2018-12-14] MEDS: INSULIN REGULAR 100 UNIT/ML VIAL SQ SCH ×3 (07:49→18:04)
[2018-12-14] MEDS: INSULIN ASPART (NovoLOG) 100 UNIT/ML VIAL SQ SCH ×4 (07:50→21:55)
[2018-12-14] MEDS: BUDESONIDE 0.5 MG/2 ML NEBU INHALATION SCH ×2 (09:30→13:08)
[2018-12-14] MEDS: ALBUTEROL NEBULIZED 2.5 MG/3 ML INHALATION PRN ×3 (09:30→23:27)
--- NOTE | 2018-12-14 12:23 | P.PN ---
Subjective Progress Note Date: 12/14/18 Principal diagnosis: Chronic severe persistent asthma with acute exacerbation, chronic pain syndrome, avascular necrosis of the hip, 12/14/2018, patient seen eval examined during the rounds labs reviewed medications reviewed care plan discussed with the patient at length still have ongoing wheezing, patient remain on IV steroids with breathing treatments severity is slightly better but not ready to wean down the steroids were switched to prednisone 12/13/2018, patient seen eval reexamined during the rounds labs reviewed medications reviewed care plan discussed with the patient at length still short of breath with intermittent cough and congestion still have patient significant wheezing, patient remains on IV steroids and breathing treatments tolerating very well labs reviewed medications Objective - Vital Signs Vital signs: Vital Signs Temp 98.3 F 12/14/18 07:33 Pulse 84 12/14/18 10:15 Resp 18 12/14/18 07:33 BP 131/79 12/14/18 10:15 Pulse Ox 98 12/14/18 07:33 Intake & Output 12/13/18 12/14/18 12/14/18 18:59 06:59 18:59 Intake Total 800 Output Total 2 Balance 800 -2 Intake: Oral 800 Output: Stool 2 Other: # Voids 2 2 - Exam - Constitutional General appearance: Present: average body habitus, disheveled - EENT Eyes: Present: EOMI, PERRLA ENT: Present: normal oropharynx Ears: bilateral: normal - Neck Carotids: bilateral: upstroke normal Thyroid: bilateral: normal size - Respiratory Respiratory: bilateral: diminished, wheezing, prolonged expiration, negative: CTA, dullness, rales, rhonchi - Cardiovascular Rhythm: regular Heart sounds: normal: S1, S2 - Gastrointestinal General gastrointestinal: Present: normal bowel sounds, soft - Integumentary Integumentary: Present: normal turgor - Musculoskeletal Musculoskeletal: Present: gait normal, generalized weakness, strength equal bilaterally - Psychiatric Psychiatric: Present: A&O x's 3, appropriate affect, intact judgment & insight - Labs CBC & Chem 7: 12/11/18 14:42 12/11/18 14:42 Labs: Abnormal Lab Results - Last 24 Hours (Table) 12/13/18 12/13/18 12/14/18 Range/Units 16:33 20:33 07:38 POC Glucose (mg/dL) 288 H 307 H 277 H (75-99) mg/dL Assessment and Plan Assessment: Acute asthma exacerbation Severe degree of degenerative joint disease osteoarthritis Chronic pain syndrome History of avascular necrosis of the hip Plan: Continue breathing treatments IV steroids, start tapering down slowly in next 24-48 hours Follow clinical course closely Further recommendations pending plan of care as per clinical response of the patient Time with Patient: Greater than 30
[2018-12-14 12:24] LABS: Glucose,Whole Blood 335 mg/dL (75-99)
[2018-12-14] MEDS: AMMONIUM LACTATE 12% LOTION 225 GM BTL TOPICAL SCH ×2 (13:57→21:27)
[2018-12-14] MEDS: LEVOFLOXACIN 250 MG TAB PO SCH (13:57)
[2018-12-14] MEDS: ACETAMINOPHEN TAB 325 MG TAB PO PRN (14:03)
[2018-12-14 17:10] LABS: Glucose,Whole Blood 294 mg/dL (75-99)
--- NOTE | 2018-12-14 21:28 | PN ---
PROGRESS NOTE SUBJECTIVE: A 58-year-old white female, COPD, asthma exacerbation. Headache has improved as increased blood pressure medication, Norvasc 5 mg b.i.d. has lowered her blood pressure down, which has helped with her headaches. Blood pressure 131/79, pulse is in 80s. Cardiovascular S1, S2. GI soft. Lungs show scattered wheeze and rhonchi. Continue current treatment with IV steroids and Levaquin, Cepacol lozenges for sore throat, Norvasc 5 mg b.i.d. for accelerated hypertension. Follow up in the next 24-48 hours. MMODL / IJN: [id number] /
[2018-12-14 21:40] LABS: Glucose,Whole Blood 242 mg/dL (75-99)
[2018-12-14] MEDS: NYSTATIN 100,000 UNIT/GM POWD 15 GM TOPICAL SCH ×2 (21:51→21:56)
[2018-12-14] MEDS: MONTELUKAST 10 MG TAB PO SCH (21:53)
[2018-12-14] MEDS: LATANOPROST 0.005% OPHTH DROPS 2.5 ML BTL BOTH EYES SCH (21:54)
[2018-12-14] MEDS: INSULIN DETEMIR (LEVEMIR) 100 UNIT/ML SYR SQ SCH (21:55)
[2018-12-15] MEDS: GABAPENTIN 300 MG CAP PO SCH ×2 (07:12→12:56)
[2018-12-15] MEDS: metFORMIN 500 MG TAB PO SCH (07:12)
[2018-12-15] MEDS: amLODIPine 5 MG TAB PO SCH (07:12)
[2018-12-15] MEDS: DOCUSATE 100 MG CAP PO SCH (07:12)
[2018-12-15] MEDS: PANTOPRAZOLE 40 MG TABLET PO SCH (07:12)
[2018-12-15] MEDS: glipiZIDE 10 MG TAB PO SCH (07:12)
[2018-12-15] MEDS: methylPREDNISolone SOD SUCCI 40 MG/ML 1 ML VIAL IV SCH (07:12)
[2018-12-15] MEDS: ALPRAZolam 1 MG TAB PO SCH (07:12)
[2018-12-15] MEDS: DICYCLOMINE 10 MG CAP PO SCH (07:12)
[2018-12-15] MEDS: AMMONIUM LACTATE 12% LOTION 225 GM BTL TOPICAL SCH (07:13)
[2018-12-15 07:27] LABS: Glucose,Whole Blood 272 mg/dL (75-99)
[2018-12-15] MEDS: TRIAMTERENE-HCTZ 75-50MG 1 EACH TAB PO SCH (07:50)
[2018-12-15] MEDS: INSULIN REGULAR 100 UNIT/ML VIAL SQ SCH ×2 (07:51→13:08)
[2018-12-15] MEDS: INSULIN ASPART (NovoLOG) 100 UNIT/ML VIAL SQ SCH ×2 (07:51→12:56)
[2018-12-15 08:23] LABS: Basophils # (A) 0.1 k/uL (0-0.2); Basophils % (A) 1 %; Eosinophils % (A) 0 %; HGB 14.7 gm/dL (11.4-16.0); Lymphocytes # (A) 1.8 k/uL (1.0-4.8); Lymphocytes % (A) 13 %; MCH 31.3 pg (25.0-35.0); MCHC 32.6 g/dL (31.0-37.0); Mean Platelet Volume 7.5; Monocytes # (A) 0.5 k/uL (0-1.0); Monocytes % (A) 4 %; Neutrophils # (A) 11.7 k/uL (1.3-7.7); Neutrophils % (A) 82 %; Platelet Count 300 k/uL (150-450); RBC 4.69 m/uL (3.80-5.40); WBC 14.2 k/uL (3.8-10.6)
[2018-12-15 08:39] LABS: Albumin 4.9 g/dL (3.5-5.0); Calcium 10.8 mg/dL (8.4-10.2); Potassium 5.2 mmol/L (3.5-5.1); Total Bilirubin 0.5 mg/dL (0.2-1.3); Total Protein 8.5 g/dL (6.3-8.2)
[2018-12-15] MEDS: BUDESONIDE 0.5 MG/2 ML NEBU INHALATION SCH (08:46)
[2018-12-15] MEDS: ALBUTEROL NEBULIZED 2.5 MG/3 ML INHALATION PRN (08:46)
[2018-12-15] MEDS: NYSTATIN 100,000 UNIT/GM POWD 15 GM TOPICAL SCH (09:08)
[2018-12-15 11:27] LABS: Glucose,Whole Blood 341 mg/dL (75-99)
[2018-12-15 14:18] VITALS: BP 143/86; PULSE 92; RESP 16; TEMP 98
[2018-12-16 15:00] LABS: Alpha 1 Anti-Trypsin 146 mg/dL (90 - 200)
[2018-12-17 16:02] LABS: Alternaria Alternata IgG 18.7 mcg/mL (< 13.6); Aspergillus fumigatus IgG Not detected (Not detected); Cladosporium herbarium IgG 17.5 mcg/mL (< 14.7); Phoma ssp. IgG 19.6 mcg/mL (< 6.6); Saccaharomospora viridis Not detected (Not detected); Saccaharopoly. rectivirgula Not detected (Not detected)
--- NOTE | 2018-12-18 11:00 | P.DS ---
Providers Date of admission: 12/11/18 13:11 Expected date of discharge: 12/15/18 Attending physician: Junior Delgado Consults: 12/11/18 14:08 Consult Physician Routine Consulting Provider: Parminder Ridley Consult Reason/Comments: asthma Do you want consulting provider notified?: Yes Placement Type Exists?: Yes Primary care physician: Junior Delgado Hospital Course: Final Diagnoses: Acute asthma exacerbation Hypertension Severe degree of degenerative joint disease osteoarthritis Chronic pain syndrome History of avascular necrosis of the hip Hospital course: This a 58-year-old female admitted with acute asthma exacerbation , hypertension and multiple other medical issues. Evaluated by pulmonary. Maintained on nebulized bronchodilators, IV steroids, antibiotics, Norvasc with significant clinical improvement. Headache subsided. Cleared by pulmonary for discharge. Patient will need nebulizer, glucometer, as well as gelpad for wheelchair secondary to immobility syndrome. Patient is being discharged home in a stable condition with guarded prognosis. EXAM: GENERAL: Alert and oriented 3, no acute distress CARDIOVASCULAR: S1, S2 regular.. No murmur RESPIRATION: Breath sounds diminished in the bases. No rhonchi or crackles, fine expiratory wheezing ABDOMEN: Soft, nontender . No guarding. no masses palpable. Bowel sounds heard NERVOUS SYSTEM: No focal deficits. The impression and plan of care has been dictated as directed. : I performed a history and examination of this patient, discussed the same with the dictator. I agree with the dictator's note ,documented as a scribe. Any additional findings or plans will be noted. Time Taken: 35 min. Patient Condition at Discharge: Stable Plan - Discharge Summary New Discharge Prescriptions: New amLODIPine [Norvasc] 5 mg PO BID #60 tab predniSONE 10 mg PO DIRECTED #30 tab Levofloxacin [Levaquin] 250 mg PO Q24H #5 tab Nystatin 100,000 Unit/gm Powd [Mycostatin Powder] 1 applic TOPICAL TID applic Continue Montelukast [Singulair] 10 mg PO HS Triamterene-Hctz 75-50Mg [Maxzide 75-50] 1 tab PO DAILY Pantoprazole [Protonix] 40 mg PO DAILY #30 tablet. Fluticasone Propionate 2 spray EA NOSTRIL BID PRN PRN Reason: Allergy Symptoms Insulin Glargine,Hum.rec.anlog [Skylar Zavala] 35 units SQ HS Albuterol Sulfate [Proair Hfa] 2 puff INHALATION RT-Q6H PRN PRN Reason: Dyspnea Docusate [Colace] 100 mg PO DAILY Albuterol Nebulized [Ventolin Nebulized] 2.5 mg INHALATION RT-QID PRN PRN Reason: Shortness Of Breath ALPRAZolam [Xanax] 1 mg PO Q12HR #30 Insulin Regular [humuLIN R] 10 units SQ AC-TID Ammonium Lactate Lotion [Lac-Hydrin 12% Lotion] 1 applic TOPICAL BID Dicyclomine [Bentyl] 10 mg PO BID oxyCODONE-APAP 7.5-325MG [Percocet 7.5-325 mg] 1 tab PO TID PRN PRN Reason: Pain metFORMIN HCL 1,000 mg PO BID glipiZIDE [Glucotrol] 10 mg PO AC-BID Gabapentin [Neurontin] 300 mg PO QID Oxymetazoline HCl [Rhofade] 1 applic TOPICAL BID Discharge Medication List Montelukast [Singulair] 10 mg PO HS 04/07/15 [History] Triamterene-Hctz 75-50Mg [Maxzide 75-50] 1 tab PO DAILY 04/07/15 [History] Pantoprazole [Protonix] 40 mg PO DAILY #30 tablet. 04/13/15 [Rx] Fluticasone Propionate 2 spray EA NOSTRIL BID PRN 07/19/15 [History] Insulin Glargine,Hum.rec.anlog [Skylar Zavala] 35 units SQ HS 07/26/16 [History] Albuterol Sulfate [Proair Hfa] 2 puff INHALATION RT-Q6H PRN 05/09/17 [History] Docusate [Colace] 100 mg PO DAILY 05/09/17 [History] Albuterol Nebulized [Ventolin Nebulized] 2.5 mg INHALATION RT-QID PRN 05/21/17 [History] ALPRAZolam [Xanax] 1 mg PO Q12HR #30 05/24/17 [Rx] Ammonium Lactate Lotion [Lac-Hydrin 12% Lotion] 1 applic TOPICAL BID 12/11/18 [History] Dicyclomine [Bentyl] 10 mg PO BID 12/11/18 [History] Gabapentin [Neurontin] 300 mg PO QID 12/11/18 [History] Insulin Regular [humuLIN R] 10 units SQ AC-TID 12/11/18 [History] Oxymetazoline HCl [Rhofade] 1 applic TOPICAL BID 12/11/18 [History] glipiZIDE [Glucotrol] 10 mg PO AC-BID 12/11/18 [History] metFORMIN HCL 1,000 mg PO BID 12/11/18 [History] oxyCODONE-APAP 7.5-325MG [Percocet 7.5-325 mg] 1 tab PO TID PRN 12/11/18 [History] Levofloxacin [Levaquin] 250 mg PO Q24H #5 tab 12/15/18 [Rx] Nystatin 100,000 Unit/gm Powd [Mycostatin Powder] 1 applic TOPICAL TID applic 12/15/18 [Rx] amLODIPine [Norvasc] 5 mg PO BID #60 tab 12/15/18 [Rx] predniSONE 10 mg PO DIRECTED #30 tab 12/15/18 [Rx] Follow up Appointment(s)/Referral(s): [facility] [NON-STAFF] - [facility], [NON-STAFF] - Dallas Jiang MD [STAFF PHYSICIAN] - 2 Weeks (office closed, call to make appt. ) Ambulatory/Diagnostic Orders: Complete Blood Count w/diff [LAB.AMB] Time Frame: 3 Days, Location: None Selected Patient Instructions/Handouts: Asthma (DC) Discharge Disposition: HOME SELF-CARE
== END 2018-12-15 15:03 | disposition home or self-care (01) | DRG 202 ==
LOC: 4MS4W 13:11
PROVIDERS: ADMIT Family Medicine; ATTEND Family Medicine
DX: J45.51 Severe persistent asthma with (acute) exacerbation (principal); J44.0 Chronic obstructive pulmonary disease with (acute) lower respiratory infection; J44.1 Chronic obstructive pulmonary disease with (acute) exacerbation; M87.9 Osteonecrosis, unspecified; J20.9 Acute bronchitis, unspecified; E11.9 Type 2 diabetes mellitus without complications; G89.4 Chronic pain syndrome; I10 Essential (primary) hypertension; M19.90 Unspecified osteoarthritis, unspecified site; Z82.49 Family history of ischemic heart disease and other diseases of the circulatory system; Z83.3 Family history of diabetes mellitus; Z87.891 Personal history of nicotine dependence; Z96.641 Presence of right artificial hip joint; Z99.3 Dependence on wheelchair; Z79.4 Long term (current) use of insulin; Z79.891 Long term (current) use of opiate analgesic; Z79.51 Long term (current) use of inhaled steroids; Z79.899 Other long term (current) drug therapy; Z88.6 Allergy status to analgesic agent; Z88.1 Allergy status to other antibiotic agents; Z88.0 Allergy status to penicillin; Z88.8 Allergy status to other drugs, medicaments and biological substances; Z91.018 Allergy to other foods; E34.51 Complete androgen insensitivity syndrome
CPT/HCPCS: 71046; 80053; 82103; 82104; 82785; 83036; 85025; 86001; 86003; 86606; 86609; 94640

== ENCOUNTER 2019-01-01 14:40 | Observation (INO) | payer MEDICARE, OTHER ==
[2019-01-01 16:17] VITALS: BMI 37.2
[2019-01-01 17:09] LABS: Glucose,Whole Blood 149 mg/dL (75-99)
--- NOTE | 2019-01-01 17:22 | P.CNPUL ---
History of Present Illness Consult date: 01/01/19 Reason for consult: dyspnea, cough, asthma, COPD Chief complaint: Shortness of breath cough History of present illness: This is a 58-year-old female with long-standing history of smoking and nicotine use patient was in fact hospitalized about 2 weeks ago got better and was subsequently discharged as she is off of oral prednisone she started having increased wheezing shortness of breath cough and sputum production and extensive thrush in the throat she came into the hospital has admitted she has some chest tightness and also, but denies any pain she has chronic pain syndrome as well. Her labs and x-ray are pending blood glucose was just checked is 149, she has been restarted on her home medications along with IV Diflucan and IV steroids Review of Systems All systems: negative Past Medical History Past Medical History: Asthma, Diabetes Mellitus, Eye Disorder, GERD/Reflux, Hyperlipidemia, Hypertension, Liver Disease, Osteoarthritis (OA), Pneumonia, Vascular Disorder Additional Past Medical History / Comment(s): Pt recently admitted to [facility] on 12/11/18 with acute exacerbation asthma and tracheobronchitis. Other HX: IDDM type II, diverticulitis,diverticulosis with bowl resection/colostomy and reversal, poor wound healing ostomy site-wound packings and WCC visits, avascular necrosis of hips with chronic pain, pilonidal cyst which drains, tinnitus,vertigo, stomach ulcer, pt stated has a golf ball size mass lt adrenal gland, fatty tumor rt upper shoulder/back, had cryogenic tx for precancerous cells on back, L1 compression fx, DeQuervains disease tequila hand uses hand braces, cataract L eye, chronic pain, lumbosacral spondylosis,scoliosis, cervical pain and limited ROM, ventral hernia, kidney stone, neuropathy bilateral hands and feet, superficial blood clots arms and legs-not DVTs, bilateral cataracts and glaucoma. History of Any Multi-Drug Resistant Organisms: None Reported Past Surgical History: Appendectomy, Bowel Resection, Orthopedic Surgery Additional Past Surgical History / Comment(s): multi tequila foot surgeries with hardware, egd, lt shoulder arthroscopic sx, rt 5th finger-trigger finger sx, rt middle finger-benign tumor removed with bone graph, laparoscopy, fallopian tubes removed. 2 picc lines - since removed, 05/05/15 colectomy with colostomy, colostomy reversal, cryogenic tx for precancerous skin lesions. Ostomy site surgically closed, TOTAL RIGHT HIP ANTERIOR APPROACH, cervical sx c3-bone sp ur/plate and fusion/cage. Past Anesthesia/Blood Transfusion Reactions: Family History of Problems w/ Anesthesia, Postoperative Nausea & Vomiting (PONV) Additional Past Anesthesia/Blood Transfusion Reaction / Comment(s): claustrophobia. PONV both pt and family. pt states unsure of mothers history of malignant hyperthermia stated "I don't know for sure but something bad happened" Smoking Status: Former smoker - Past Family History Mother Family Medical History: Cancer, Coronary Artery Disease (CAD), Myocardial Infarction ([place]), Thyroid Disorder Additional Family Medical History / Comment(s): thyroid/lung cancer. Mother of lung cancer at age 80 Father Family Medical History: Congestive Heart Failure (CHF), Diabetes Mellitus, Deep Vein Thrombosis (DVT), Pulmonary Embolus Additional Family Medical History / Comment(s): Father of diabetic complications at age 64. Medications and Allergies Home Medications Medication Instructions Recorded Confirmed Type Montelukast [Singulair] 10 mg PO HS 04/07/15 12/11/18 History Triamterene-Hctz 75-50Mg [Maxzide 1 tab PO DAILY 04/07/15 12/11/18 History 75-50] Pantoprazole [Protonix] 40 mg PO DAILY #30 tablet. 04/13/15 12/11/18 Rx Fluticasone Propionate 2 spray EA NOSTRIL BID PRN 07/19/15 12/11/18 History Insulin Glargine,Hum.rec.anlog 35 units SQ HS 07/26/16 12/11/18 History [Toujeo Solostar] Albuterol Sulfate [Proair Hfa] 2 puff INHALATION RT-Q6H PRN 05/09/17 12/11/18 History Docusate [Colace] 100 mg PO DAILY 05/09/17 12/11/18 History Albuterol Nebulized [Ventolin 2.5 mg INHALATION RT-QID PRN 05/21/17 12/11/18 History Nebulized] ALPRAZolam [Xanax] 1 mg PO Q12HR #30 05/24/17 12/11/18 Rx Ammonium Lactate Lotion 1 applic TOPICAL BID 12/11/18 12/11/18 History [Lac-Hydrin 12% Lotion] Dicyclomine [Bentyl] 10 mg PO BID 12/11/18 12/11/18 History Gabapentin [Neurontin] 300 mg PO QID 12/11/18 12/11/18 History Insulin Regular [humuLIN R] 10 units SQ AC-TID 12/11/18 12/11/18 History Oxymetazoline HCl [Rhofade] 1 applic TOPICAL BID 12/11/18 12/11/18 History glipiZIDE [Glucotrol] 10 mg PO AC-BID 12/11/18 12/11/18 History metFORMIN HCL 1,000 mg PO BID 12/11/18 12/11/18 History oxyCODONE-APAP 7.5-325MG [Percocet 1 tab PO TID PRN 12/11/18 12/11/18 History 7.5-325 mg] Levofloxacin [Levaquin] 250 mg PO Q24H #5 tab 12/15/18 Rx Nystatin 100,000 Unit/gm Powd 1 applic TOPICAL TID applic 12/15/18 Rx [Mycostatin Powder] amLODIPine [Norvasc] 5 mg PO BID #60 tab 12/15/18 Rx predniSONE 10 mg PO DIRECTED #30 tab 12/15/18 Rx Allergies Allergy/AdvReac Type Severity Reaction Status Date / Time adhesive tape Allergy Severe Itching Verified 01/01/19 14:56 asparagus Allergy Wheezing Verified 01/01/19 14:56 aspirin Allergy Dyspnea Verified 01/01/19 14:56 ceftriaxone sodium Allergy Anaphylaxis Verified 01/01/19 14:56 [From Rocephin] cephalexin monohydrate Allergy Anaphylaxis Verified 01/01/19 14:56 [From Keflex] Penicillins Allergy Anaphylaxis Verified 01/01/19 14:56 perfume Allergy Wheezing Verified 01/01/19 14:56 DUST Allergy Wheezing Uncoded 11/01/17 21:49 HAY Allergy Wheezing Uncoded 11/01/17 21:49 Physical Exam Vitals: Vital Signs Temp Pulse Resp BP Pulse Ox 01/01/19 15:20 98.0 F 88 18 136/64 94 L Intake and Output 01/01/19 01/01/19 01/01/19 06:59 14:59 22:59 Other: Weight 95.4 kg - Constitutional General appearance: average body habitus, disheveled, mild distress - EENT Extensive thrush involving the tongue as well as posterior pharynx Eyes: EOMI, PERRLA, poor dentition Ears: bilateral: normal - Neck Carotids: bilateral: upstroke normal Thyroid: bilateral: normal size - Respiratory Respiratory: bilateral: wheezing - Cardiovascular Rhythm: regular Heart sounds: normal: S1, S2 - Gastrointestinal General gastrointestinal: distended, soft - Neurologic Neurologic: CNII-XII intact - Musculoskeletal Musculoskeletal: gait normal, generalized weakness, strength equal bilaterally - Psychiatric Psychiatric: A&O x's 3, appropriate affect, intact judgment & insight Results - Laboratory Findings Abnormal lab findings: Abnormal Labs 01/01/19 17:06 POC Glucose (mg/dL) 149 H Assessment and Plan Assessment: Acute COPD exacerbation Extensive oral pharyngeal thrush Type 2 diabetes mellitus Chronic pain syndrome Chronic persistent severe asthma Plan: IV steroids Breathing treatments IV Diflucan We'll check a chest x-ray Further recommendations pending plan of care as per clinical response of the patient Time with Patient: Greater than 30
[2019-01-01 17:35] LABS: Calcium 9.8 mg/dL (8.4-10.2); Potassium 4.3 mmol/L (3.5-5.1)
[2019-01-01] MEDS: glipiZIDE 10 MG TAB PO SCH (17:42)
[2019-01-01] MEDS: oxyCODONE-APAP 7.5-325MG 1 EACH TAB PO PRN (17:42)
[2019-01-01] MEDS: GABAPENTIN 300 MG CAP PO SCH ×2 (17:42→21:29)
[2019-01-01] MEDS: INSULIN ASPART (NovoLOG) 100 UNIT/ML VIAL SQ SCH ×2 (17:42→21:27)
[2019-01-01] MEDS: FLUCONAZOLE IN NACL,ISO-OSM 100 MG in SALINE 1 50ML.BAG IVPB SCH (17:42)
[2019-01-01] MEDS: INSULIN REGULAR 100 UNIT/ML VIAL SQ SCH (17:57)
[2019-01-01 18:01] LABS: HCT 38.3 % (34.0-46.0); HGB 11.8 gm/dL (11.4-16.0); MCHC 30.7 g/dL (31.0-37.0); MCV 100.9 fL (80.0-100.0); Macrocytosis Slight; Mean Platelet Volume 7.3; Platelet Count 191 k/uL (150-450); RDW 14.3 % (11.5-15.5); WBC 8.3 k/uL (3.8-10.6)
--- NOTE | 2019-01-01 18:03 | P.OBCN ---
History of Present Illness Consult date: 01/01/19 Requesting physician: Junior Delgado Reason for consult: other (Vaginal rash improving after Diflucan) Chief complaint: Vaginal rash/swelling/discomfort History of present illness: This is a 58-year-old 0 that was a direct admit from Dr. Delgado's office with shortness of breath. Patient has a long-standing history of smoking and was hospitalized 2 weeks ago subsequently got better was discharged but noted increasing wheezing and shortness of breath. Patient was seen by Dr. Delgado and direct admit was ordered. Patient is noted to have vaginal rash/irritation and has been being treated with Diflucan. Upon questioning patient states she feels her vaginal rash and irritation is improving. She does note some dysuria at the end of her urinary stream. She denies fevers, changes in bowel movements to me. She states she has been menopausal for many years, and when she did have them menses were very irregular, approximately once a year. Review of Systems Constitutional: Denies fever Ears, nose, mouth and throat: Reports headache Cardiovascular: Denies leg edema Respiratory: Reports cough, Reports dyspnea Gastrointestinal: Denies constipation, Denies diarrhea, Denies nausea, Denies vomiting Genitourinary: Reports dysuria, Reports vaginal itching Menstruation: Reports postmenopausal Past Medical History Past Medical History: Asthma, Diabetes Mellitus, Eye Disorder, GERD/Reflux, Hyperlipidemia, Hypertension, Liver Disease, Osteoarthritis (OA), Pneumonia, Vascular Disorder Additional Past Medical History / Comment(s): Pt recently admitted to [facility] on 12/11/18 with acute exacerbation asthma and tracheobronchitis. 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 History of Any Multi-Drug Resistant Organisms: None Reported Past Surgical History: Appendectomy, Bowel Resection, Orthopedic Surgery Additional Past Surgical History / Comment(s): multi tequila foot surgeries with hardware, egd, lt shoulder arthroscopic sx, rt 5th finger-trigger finger sx, rt middle finger-benign tumor removed with bone graph, laparoscopy, fallopian tubes removed. 2 picc lines - since removed, 05/05/15 colectomy with colostomy, colostomy reversal, cryogenic tx for precancerous skin lesions. Ostomy site surgically closed, TOTAL RIGHT HIP ANTERIOR APPROACH, cervical sx c3-bone spur /plate and fusion/cage. Past Anesthesia/Blood Transfusion Reactions: Family History of Problems w/ Anesthesia, Postoperative Nausea & Vomiting (PONV) Additional Past Anesthesia/Blood Transfusion Reaction / Comm: claustrophobia. PONV both pt and family. pt states unsure of mothers history of malignant hyperthermia stated "I don't know for sure but something bad happened" Smoking Status: Former smoker - Past Family History Mother Family Medical History: Cancer, Coronary Artery Disease (CAD), Myocardial Infarction ([place]), Thyroid Disorder Additional Family Medical History / Comment(s): thyroid/lung cancer. Mother of lung cancer at age 80 Father Family Medical History: Congestive Heart Failure (CHF), Diabetes Mellitus, Deep Vein Thrombosis (DVT), Pulmonary Embolus Additional Family Medical History / Comment(s): Father of diabetic complications at age 64. Medications and Allergies Home Medications Medication Instructions Recorded Confirmed Type Montelukast [Singulair] 10 mg PO HS 04/07/15 01/01/19 History Triamterene-Hctz 75-50Mg [Maxzide 1 tab PO DAILY 04/07/15 01/01/19 History 75-50] Pantoprazole [Protonix] 40 mg PO DAILY #30 tablet. 04/13/15 01/01/19 Rx Fluticasone Propionate 2 spray EA NOSTRIL BID PRN 07/19/15 01/01/19 History Insulin Glargine,Hum.rec.anlog 35 units SQ HS 07/26/16 01/01/19 History [Skylar Zavala] Albuterol Sulfate [Proair Hfa] 2 puff INHALATION RT-Q6H PRN 05/09/17 01/01/19 History Docusate [Colace] 100 mg PO DAILY 05/09/17 01/01/19 History Albuterol Nebulized [Ventolin 2.5 mg INHALATION RT-QID PRN 05/21/17 01/01/19 History Nebulized] ALPRAZolam [Xanax] 1 mg PO Q12HR #30 05/24/17 01/01/19 Rx Ammonium Lactate Lotion 1 applic TOPICAL BID 12/11/18 01/01/19 History [Lac-Hydrin 12% Lotion] Dicyclomine [Bentyl] 10 mg PO BID 12/11/18 01/01/19 History Gabapentin [Neurontin] 300 mg PO QID 12/11/18 01/01/19 History Insulin Regular [humuLIN R] 10 units SQ AC-TID 12/11/18 01/01/19 History Oxymetazoline HCl [Rhofade] 1 applic TOPICAL BID 12/11/18 01/01/19 History glipiZIDE [Glucotrol] 10 mg PO AC-BID 12/11/18 01/01/19 History metFORMIN HCL 1,000 mg PO BID 12/11/18 01/01/19 History oxyCODONE-APAP 7.5-325MG [Percocet 1 tab PO TID PRN 12/11/18 01/01/19 History 7.5-325 mg] Nystatin 100,000 Unit/gm Powd 1 applic TOPICAL TID applic 12/15/18 01/01/19 Rx [Mycostatin Powder] amLODIPine [Norvasc] 5 mg PO BID #60 tab 12/15/18 01/01/19 Rx Latanoprost/Pf [Latanoprost 0.005% 1 drop BOTH EYES HS 01/01/19 01/01/19 History Eye Drop] Allergies Allergy/AdvReac Type Severity Reaction Status Date / Time adhesive tape Allergy Severe Itching Verified 01/01/19 17:15 ceftriaxone sodium Allergy Anaphylaxis Verified 01/01/19 17:15 [From Rocephin] cephalexin monohydrate Allergy Anaphylaxis Verified 01/01/19 17:15 [From Keflex] Penicillins Allergy Anaphylaxis Verified 01/01/19 17:15 asparagus AdvReac Wheezing Verified 01/01/19 17:15 aspirin AdvReac Dyspnea Verified 01/01/19 17:15 perfume AdvReac Wheezing Verified 01/01/19 17:15 DUST AdvReac Wheezing Uncoded 01/01/19 17:15 HAY AdvReac Wheezing Uncoded 01/01/19 17:15 Exam Osteopathic Statement: *. No significant issues noted on an osteopathic structural exam other than those noted in the History and Physical/Consult. Vital Signs Temp Pulse Resp BP Pulse Ox 01/01/19 15:20 98.0 F 88 18 136/64 94 L Intake and Output 01/01/19 01/01/19 01/01/19 06:59 14:59 22:59 Other: Weight 95.4 kg In general this is a well-nourished well-developed female in no acute distress. She did have some difficulty breathing well on her back, her heart has regular rate and rhythm her abdomen is soft although she notes tenderness lateral to the umbilicus on vaginal exam external vaginal tissue was noted to be erythematous no rash or ulcers were noted. On examination of the external rectum a small hemorrhoid was noted otherwise normal in nature. Results Result Diagrams: 01/01/19 17:07 Abnormal Lab Results - Last 24 Hours (Table) 01/01/19 01/01/19 Range/Units 17:06 17:07 BUN 20 H (7-17) mg/dL Glucose 155 H (74-99) mg/dL POC Glucose (mg/dL) 149 H (75-99) mg/dL Assessment and Plan (1) Vaginal elkin Narrative/Plan: We'll plan nystatin cream for external vaginal irritation Current Visit: Yes Status: Acute Code(s): B37.3 - CANDIDIASIS OF VULVA AND VAGINA SNOMED Code(s): 58942561 (2) Dysuria Narrative/Plan: Orders given for clean catch urine to rule out urinary tract infection. Current Visit: Yes Status: Acute Code(s): R30.0 - DYSURIA SNOMED Code(s): 44987209 Plan: Thank for the kind consult on this patient will sign off as I do believe the Terazol cream will further improve her vaginal symptoms. If you have any further concerns regarding this patient please feel free to contact me further thank you
[2019-01-01] MEDS: IPRATROPIUM-ALBUTEROL 3 ML NEB INHALATION SCH (21:12)
[2019-01-01 21:16] LABS: Glucose,Whole Blood 198 mg/dL (75-99)
[2019-01-01] MEDS: ALPRAZolam 1 MG TAB PO SCH (21:27)
[2019-01-01] MEDS: DICYCLOMINE 10 MG CAP PO SCH (21:27)
[2019-01-01] MEDS: AMMONIUM LACTATE 12% LOTION 225 GM BTL TOPICAL SCH (21:27)
[2019-01-01] MEDS: amLODIPine 5 MG TAB PO SCH (21:27)
[2019-01-01] MEDS: LATANOPROST 0.005% OPHTH DROPS 2.5 ML BTL BOTH EYES SCH (21:28)
[2019-01-01] MEDS: INSULIN DETEMIR (LEVEMIR) 100 UNIT/ML SYR SQ SCH (21:28)
[2019-01-01] MEDS: MONTELUKAST 10 MG TAB PO SCH (21:28)
[2019-01-01] MEDS: metFORMIN 500 MG TAB PO SCH (21:28)
[2019-01-01] MEDS: TERCONAZOLE 0.8% VAGINAL CREAM 20 GM TUBE VAGINAL SCH (21:29)
[2019-01-01] MEDS: NYSTATIN 100,000 UNIT/GM POWD 15 GM TOPICAL SCH (21:29)
[2019-01-01 21:42] LABS: Amorphous Sediment,Urine Rare /hpf; Appearance,Urine Clear (Clear); Bacteria,Urine Rare /hpf; Bilirubin,Urine Negative (Negative); Blood,Urine Negative (Negative); Color,Urine Yellow; Glucose,Urine (UA) 1+ (Negative); Ketones,Urine Negative (Negative); Leukocyte Esterase,Urine Trace (Negative); Mucus,Urine Rare /hpf; Nitrite,Urine Negative (Negative); PH, Urine 6.5 (5.0-8.0); Protein,Urine Trace (Negative); RBC,Urine 1 /hpf (0-5); Specific Gravity,Urine 1.013 (1.001-1.035); Squamous Epithelial Cell,Urine 3 /hpf (0-4); Urobilinogen,Urine <2.0 mg/dL (<2.0); WBC,Urine 6 /hpf (0-5)
[2019-01-01] MEDS: methylPREDNISolone SOD SUCCI 125 MG/2 ML VIAL IV SCH (23:51)
[2019-01-02 06:58] LABS: Glucose,Whole Blood 392 mg/dL (75-99)
[2019-01-02] MEDS: IPRATROPIUM-ALBUTEROL 3 ML NEB INHALATION SCH ×4 (07:02→19:29)
[2019-01-02] MEDS: TRIAMTERENE-HCTZ 75-50MG 1 EACH TAB PO SCH (07:36)
[2019-01-02] MEDS: metFORMIN 500 MG TAB PO SCH ×2 (07:36→20:48)
[2019-01-02] MEDS: PANTOPRAZOLE 40 MG TABLET PO SCH (07:36)
[2019-01-02] MEDS: DICYCLOMINE 10 MG CAP PO SCH ×2 (07:37→20:48)
[2019-01-02] MEDS: amLODIPine 5 MG TAB PO SCH ×2 (07:37→20:48)
[2019-01-02] MEDS: GABAPENTIN 300 MG CAP PO SCH ×4 (07:37→20:48)
[2019-01-02] MEDS: glipiZIDE 10 MG TAB PO SCH ×2 (07:37→17:19)
[2019-01-02] MEDS: ALPRAZolam 1 MG TAB PO SCH ×2 (07:37→20:48)
[2019-01-02] MEDS: methylPREDNISolone SOD SUCCI 125 MG/2 ML VIAL IV SCH ×2 (07:37→15:44)
[2019-01-02] MEDS: DOCUSATE 100 MG CAP PO SCH (07:37)
[2019-01-02] MEDS: oxyCODONE-APAP 7.5-325MG 1 EACH TAB PO PRN ×2 (07:38→17:18)
[2019-01-02] MEDS: INSULIN ASPART (NovoLOG) 100 UNIT/ML VIAL SQ SCH ×4 (07:39→20:53)
[2019-01-02] MEDS: INSULIN REGULAR 100 UNIT/ML VIAL SQ SCH ×4 (07:40→17:24)
[2019-01-02] MEDS: AMMONIUM LACTATE 12% LOTION 225 GM BTL TOPICAL SCH ×2 (07:40→20:57)
[2019-01-02] MEDS: NYSTATIN 100,000 UNIT/GM POWD 15 GM TOPICAL SCH ×3 (07:41→21:07)
[2019-01-02] MEDS: FLUCONAZOLE IN NACL,ISO-OSM 100 MG in SALINE 1 50ML.BAG IVPB SCH (08:12)
--- NOTE | 2019-01-02 09:10 | XR ---
EXAMINATION TYPE: XR chest 2V DATE OF EXAM: 01/01/2019 COMPARISON: 12/11/2018 TECHNIQUE: PA and lateral views submitted. HISTORY: Cough, pneumonia FINDINGS: The lungs are clear and there is no pneumothorax, pleural effusion, or focal pneumonia. Postsurgica l change overlying the cervical spine. Sclerotic lesion involving the right humerus likely related to bone infarct. Chondroid lesion not excluded. Somewhat coarsened interstitium is stable. Areas of dhaval ear subsegmental consolidation are most typical scar or atelectasis. IMPRESSION: 1. No acute process. Areas of suspected scar or atelectasis are stable. 2. Stable right humeral chondroid or bone infarct lesion.
[2019-01-02 11:21] LABS: Glucose,Whole Blood 423 mg/dL (75-99)
[2019-01-02] MEDS: ONDANSETRON 4 MG/2 ML VIAL IVP PRN (12:49)
[2019-01-02] MEDS: NYSTATIN 100,000 UNIT/ML SUSP 500,000 UNIT/5 ML CUP PO SCH ×3 (13:03→20:47)
--- NOTE | 2019-01-02 14:34 | P.PN ---
Subjective Progress Note Date: 01/02/19 Principal diagnosis: Acute COPD exacerbation Extensive oral pharyngeal thrush Type 2 diabetes mellitus Chronic pain syndrome Chronic persistent severe asthma 01/02/2019, patient seen and evaluated examined during the rounds abscess reviewed medications reviewed care plan discussed with the patient cough congestion is still present sputum is scanty now she denies any chest pain or chest tightness is present on deep breathing wheezing appears to have improved with Diflucan her swallowing functions are getting better Objective - Vital Signs Vital signs: Vital Signs Temp 98.0 F 01/02/19 12:30 Pulse 97 01/02/19 12:30 Resp 16 01/02/19 12:30 BP 153/76 01/02/19 12:30 Pulse Ox 93 L 01/02/19 12:30 Intake & Output 01/01/19 01/02/19 01/02/19 18:59 06:59 18:59 Output Total 1999 Balance -1999 Weight 95.4 kg Output: Urine 1999 - Exam - Constitutional General appearance: average body habitus, disheveled, mild distress - EENT Extensive thrush involving the tongue as well as posterior pharynx Eyes: EOMI, PERRLA, poor dentition Ears: bilateral: normal - Neck Carotids: bilateral: upstroke normal Thyroid: bilateral: normal size - Respiratory Respiratory: bilateral: wheezing - Cardiovascular Rhythm: regular Heart sounds: normal: S1, S2 - Gastrointestinal General gastrointestinal: distended, soft - Neurologic Neurologic: CNII-XII intact - Musculoskeletal Musculoskeletal: gait normal, generalized weakness, strength equal bilaterally - Psychiatric Psychiatric: A&O x's 3, appropriate affect, intact judgment & insight - Labs CBC & Chem 7: 01/01/19 17:07 01/01/19 17:07 Labs: Abnormal Lab Results - Last 24 Hours (Table) 01/01/19 01/01/19 01/01/19 Range/Units 17:06 17:07 17:07 MCV 100.9 H (80.0-100.0) fL MCHC 30.7 L (31.0-37.0) g/dL BUN 20 H (7-17) mg/dL Glucose 155 H (74-99) mg/dL POC Glucose (mg/dL) 149 H (75-99) mg/dL Urine Protein (Negative) Urine Glucose (UA) (Negative) Ur Leukocyte Esterase (Negative) Urine WBC (0-5) /hpf Amorphous Sediment (None) /hpf Urine Bacteria (None) /hpf Urine Mucus (None) /hpf 01/01/19 01/01/19 01/02/19 Range/Units 21:14 21:15 06:54 MCV (80.0-100.0) fL MCHC (31.0-37.0) g/dL BUN (7-17) mg/dL Glucose (74-99) mg/dL POC Glucose (mg/dL) 198 H 392 H (75-99) mg/dL Urine Protein Trace H (Negative) Urine Glucose (UA) 1+ H (Negative) Ur Leukocyte Esterase Trace H (Negative) Urine WBC 6 H (0-5) /hpf Amorphous Sediment Rare H (None) /hpf Urine Bacteria Rare H (None) /hpf Urine Mucus Rare H (None) /hpf 01/02/19 Range/Units 11:18 MCV (80.0-100.0) fL MCHC (31.0-37.0) g/dL BUN (7-17) mg/dL Glucose (74-99) mg/dL POC Glucose (mg/dL) 423 H (75-99) mg/dL Urine Protein (Negative) Urine Glucose (UA) (Negative) Ur Leukocyte Esterase (Negative) Urine WBC (0-5) /hpf Amorphous Sediment (None) /hpf Urine Bacteria (None) /hpf Urine Mucus (None) /hpf Microbiology - Last 24 Hours (Table) 01/01/19 21:15 Urine Culture - Preliminary Urine,Voided Assessment and Plan Assessment: Acute COPD exacerbation Extensive oral pharyngeal thrush Type 2 diabetes mellitus Chronic pain syndrome Chronic persistent severe asthma Plan: IV steroids Breathing treatments IV Diflucan Reviewed chest x-ray, note is made of sclerotic process in right humerus likely infarct, will observe her closely Further recommendations pending plan of care as per clinical response of the patient Time with Patient: Greater than 30
--- NOTE | 2019-01-02 16:02 | P.CONS ---
History of Present Illness - Reason for Consult Consult date: 01/02/19 vaginal ulcers Requesting physician: Junior Delgado - Chief Complaint shortness of breath or wheezing and vaginal lesion. - History of Present Illness Patient is a 58-year-old female with a past medical history significant for COPD chronic smoking presenting to her primary care physician office for follow-up patient was noted to have significant wheezing as the patient has been admitted directly to the hospital, the patient is complaining of increased shortness of breath on minimal exertion she also have a cough which has been mild intensity is mostly dry the big of any sputum no pleuritic chest pain no nausea no vomiting no vomiting no diarrhea the patient be complaining of sores in her mouth no difficulty swallowing and also been complaining of vaginal itching for last few days. Denies having any dysuria frequency or burning of urination no nausea no vomiting and no abdominal pain and no diarrhea patient did have a chest x-ray shows some chronic changes her white count was normal the patient was started on IV Diflucan infection disease was consulted for further recommendation regarding her thrush and possible vaginal sore Review of Systems AtPositive point has been mentioned in the HPI rest of the systems are negative Past Medical History Past Medical History: Asthma, Diabetes Mellitus, Eye Disorder, GERD/Reflux, Hyperlipidemia, Hypertension, Liver Disease, Osteoarthritis (OA), Pneumonia, Vascular Disorder Additional Past Medical History / Comment(s): Pt recently admitted to [facility] on 12/11/18 with acute exacerbation asthma and tracheobronchitis. 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 History of Any Multi-Drug Resistant Organisms: None Reported Past Surgical History: Appendectomy, Bowel Resection, Orthopedic Surgery Additional Past Surgical History / Comment(s): multi tequila foot surgeries with hardware, egd, lt shoulder arthroscopic sx, rt 5th finger-trigger finger sx, rt middle finger-benign tumor removed with bone graph, laparoscopy, fallopian tubes removed. 2 picc lines - since removed, 05/05/15 colectomy with colostomy, colostomy reversal, cryogenic tx for precancerous skin lesions. Ostomy site surgically closed, TOTAL RIGHT HIP ANTERIOR APPROACH, cervical sx c3-bone sp ur/plate and fusion/cage. Past Anesthesia/Blood Transfusion Reactions: Family History of Problems w/ Anesthesia, Postoperative Nausea & Vomiting (PONV) Additional Past Anesthesia/Blood Transfusion Reaction / Comm: claustrophobia. PONV both pt and family. pt states unsure of mothers history of malignant hyperthermia stated "I don't know for sure but something bad happened" Smoking Status: Former smoker - Past Family History Mother Family Medical History: Cancer, Coronary Artery Disease (CAD), Myocardial Infarction ([place]), Thyroid Disorder Additional Family Medical History / Comment(s): thyroid/lung cancer. Mother of lung cancer at age 80 Father Family Medical History: Congestive Heart Failure (CHF), Diabetes Mellitus, Deep Vein Thrombosis (DVT), Pulmonary Embolus Additional Family Medical History / Comment(s): Father of diabetic complications at age 64. Medications and Allergies Home Medications Medication Instructions Recorded Confirmed Type Montelukast [Singulair] 10 mg PO HS 04/07/15 01/01/19 History Triamterene-Hctz 75-50Mg [Maxzide 1 tab PO DAILY 04/07/15 01/01/19 History 75-50] Pantoprazole [Protonix] 40 mg PO DAILY #30 tablet. 04/13/15 01/01/19 Rx Fluticasone Propionate 2 spray EA NOSTRIL BID PRN 07/19/15 01/01/19 History Insulin Glargine,Hum.rec.anlog 35 units SQ HS 07/26/16 01/01/19 History [Skylar Zavala] Albuterol Sulfate [Proair Hfa] 2 puff INHALATION RT-Q6H PRN 05/09/17 01/01/19 History Docusate [Colace] 100 mg PO DAILY 05/09/17 01/01/19 History Albuterol Nebulized [Ventolin 2.5 mg INHALATION RT-QID PRN 05/21/17 01/01/19 History Nebulized] ALPRAZolam [Xanax] 1 mg PO Q12HR #30 05/24/17 01/01/19 Rx Ammonium Lactate Lotion 1 applic TOPICAL BID 12/11/18 01/01/19 History [Lac-Hydrin 12% Lotion] Dicyclomine [Bentyl] 10 mg PO BID 12/11/18 01/01/19 History Gabapentin [Neurontin] 300 mg PO QID 12/11/18 01/01/19 History Insulin Regular [humuLIN R] 10 units SQ AC-TID 12/11/18 01/01/19 History Oxymetazoline HCl [Rhofade] 1 applic TOPICAL BID 12/11/18 01/01/19 History glipiZIDE [Glucotrol] 10 mg PO AC-BID 12/11/18 01/01/19 History metFORMIN HCL 1,000 mg PO BID 12/11/18 01/01/19 History oxyCODONE-APAP 7.5-325MG [Percocet 1 tab PO TID PRN 12/11/18 01/01/19 History 7.5-325 mg] Nystatin 100,000 Unit/gm Powd 1 applic TOPICAL TID applic 12/15/18 01/01/19 Rx [Mycostatin Powder] amLODIPine [Norvasc] 5 mg PO BID #60 tab 12/15/18 01/01/19 Rx Latanoprost/Pf [Latanoprost 0.005% 1 drop BOTH EYES HS 01/01/19 01/01/19 History Eye Drop] Allergies Allergy/AdvReac Type Severity Reaction Status Date / Time adhesive tape Allergy Severe Itching Verified 01/01/19 17:15 ceftriaxone sodium Allergy Anaphylaxis Verified 01/01/19 17:15 [From Rocephin] cephalexin monohydrate Allergy Anaphylaxis Verified 01/01/19 17:15 [From Keflex] Penicillins Allergy Anaphylaxis Verified 01/01/19 17:15 asparagus AdvReac Wheezing Verified 01/01/19 17:15 aspirin AdvReac Dyspnea Verified 01/01/19 17:15 perfume AdvReac Wheezing Verified 01/01/19 17:15 DUST AdvReac Wheezing Uncoded 01/01/19 17:15 HAY AdvReac Wheezing Uncoded 01/01/19 17:15 Physical Exam Vitals: Vital Signs Temp Pulse Pulse Resp BP Pulse Ox 01/02/19 11:06 80 01/02/19 10:56 80 01/02/19 07:12 80 01/02/19 07:02 76 01/02/19 04:50 98.8 F 80 18 114/68 90 L 01/01/19 21:28 80 01/01/19 21:15 98.2 F 87 18 134/76 96 01/01/19 21:12 86 01/01/19 15:20 98.0 F 88 18 136/64 94 L Intake and Output 01/01/19 01/02/19 01/02/19 22:59 06:59 14:59 Output Total 600 1400 Balance -600 -1400 Output: Urine 600 1400 Other: Weight 95.4 kg GENERAL DESCRIPTION: Middle-aged female lying in bed, no distress. No tachypnea or accessory muscle of respiration use. HEENT: Shows Pallor , no scleral icterus. Oral mucous membrane is dry, mild thrush. No pharyngeal erythema or thrush NECK: Trachea central, no thyromegaly. LUNGS: Unlabored breathing. Decreased intensity breath sounds with occasional wheeze. HEART: S1, S2, regular rate and rhythm. No loud murmur ABDOMEN: Soft, no tenderness , guarding or rigidity, no organomegaly Pelvic exam done with the RN did not show any evidence of ulceration erythema or drainage EXTREMITIES: No edema of feet. SKIN: No rash, no masses palpable. NEUROLOGICAL: The patient is awake, alert, oriented x3, mood and affect normal. Results CBC & Chem 7: 01/01/19 17:07 01/01/19 17:07 Labs: Abnormal Lab Results - Last 24 Hours (Table) 01/01/19 01/01/19 01/01/19 Range/Units 17:06 17:07 17:07 MCV 100.9 H (80.0-100.0) fL MCHC 30.7 L (31.0-37.0) g/dL BUN 20 H (7-17) mg/dL Glucose 155 H (74-99) mg/dL POC Glucose (mg/dL) 149 H (75-99) mg/dL Urine Protein (Negative) Urine Glucose (UA) (Negative) Ur Leukocyte Esterase (Negative) Urine WBC (0-5) /hpf Amorphous Sediment (None) /hpf Urine Bacteria (None) /hpf Urine Mucus (None) /hpf 01/01/19 01/01/19 01/02/19 Range/Units 21:14 21:15 06:54 MCV (80.0-100.0) fL MCHC (31.0-37.0) g/dL BUN (7-17) mg/dL Glucose (74-99) mg/dL POC Glucose (mg/dL) 198 H 392 H (75-99) mg/dL Urine Protein Trace H (Negative) Urine Glucose (UA) 1+ H (Negative) Ur Leukocyte Esterase Trace H (Negative) Urine WBC 6 H (0-5) /hpf Amorphous Sediment Rare H (None) /hpf Urine Bacteria Rare H (None) /hpf Urine Mucus Rare H (None) /hpf 01/02/19 Range/Units 11:18 MCV (80.0-100.0) fL MCHC (31.0-37.0) g/dL BUN (7-17) mg/dL Glucose (74-99) mg/dL POC Glucose (mg/dL) 423 H (75-99) mg/dL Urine Protein (Negative) Urine Glucose (UA) (Negative) Ur Leukocyte Esterase (Negative) Urine WBC (0-5) /hpf Amorphous Sediment (None) /hpf Urine Bacteria (None) /hpf Urine Mucus (None) /hpf Microbiology - Last 24 Hours (Table) 01/01/19 21:15 Urine Culture - Preliminary Urine,Voided Assessment and Plan Assessment: 1-patient and her hospital difficulty breathing more likely secondary underlying COPD exacerbation with tracheobronchitis as there was no evidence of pneumonia on the chest x-ray 2-oral thrush 3-possible vaginal candidiasis Plan: 1- we will add nystatin swish and swallow every 6 hours 2-short course of Diflucan which can be done by mouth 3-no need for systemic antibiotic therapy We will follow on clinical condition and cultures to further adjust medication if needed Thank you for this consultation will follow this patient with you Time with Patient: Greater than 30
[2019-01-02 16:53] LABS: Glucose,Whole Blood 413 mg/dL (75-99)
[2019-01-02 20:19] LABS: Glucose,Whole Blood 468 mg/dL (75-99)
[2019-01-02] MEDS: MONTELUKAST 10 MG TAB PO SCH (20:48)
[2019-01-02] MEDS: INSULIN DETEMIR (LEVEMIR) 100 UNIT/ML SYR SQ SCH (20:49)
[2019-01-02] MEDS: LATANOPROST 0.005% OPHTH DROPS 2.5 ML BTL BOTH EYES SCH (20:55)
[2019-01-02] MEDS: TERCONAZOLE 0.8% VAGINAL CREAM 20 GM TUBE VAGINAL SCH (20:58)
[2019-01-03] MEDS: methylPREDNISolone SOD SUCCI 125 MG/2 ML VIAL IV SCH ×3 (00:26→16:27)
[2019-01-03] MEDS: oxyCODONE-APAP 7.5-325MG 1 EACH TAB PO PRN ×3 (00:29→16:26)
[2019-01-03 07:08] LABS: Glucose,Whole Blood 409 mg/dL (75-99)
[2019-01-03] MEDS: PANTOPRAZOLE 40 MG TABLET PO SCH (07:44)
[2019-01-03] MEDS: FLUCONAZOLE 100 MG TAB PO SCH (07:44)
[2019-01-03] MEDS: GABAPENTIN 300 MG CAP PO SCH ×4 (07:44→20:50)
[2019-01-03] MEDS: metFORMIN 500 MG TAB PO SCH ×2 (07:44→20:39)
[2019-01-03] MEDS: NYSTATIN 100,000 UNIT/ML SUSP 500,000 UNIT/5 ML CUP PO SCH ×4 (07:44→20:38)
[2019-01-03] MEDS: ALPRAZolam 1 MG TAB PO SCH ×2 (07:44→20:39)
[2019-01-03] MEDS: DICYCLOMINE 10 MG CAP PO SCH ×2 (07:44→20:39)
[2019-01-03] MEDS: TRIAMTERENE-HCTZ 75-50MG 1 EACH TAB PO SCH (07:45)
[2019-01-03] MEDS: amLODIPine 5 MG TAB PO SCH ×2 (07:45→20:39)
[2019-01-03] MEDS: DOCUSATE 100 MG CAP PO SCH (07:45)
[2019-01-03] MEDS: glipiZIDE 10 MG TAB PO SCH ×2 (07:45→17:56)
[2019-01-03] MEDS: INSULIN ASPART (NovoLOG) 100 UNIT/ML VIAL SQ SCH ×4 (07:46→20:37)
[2019-01-03] MEDS: INSULIN REGULAR 100 UNIT/ML VIAL SQ SCH ×3 (07:46→17:56)
[2019-01-03] MEDS: IPRATROPIUM-ALBUTEROL 3 ML NEB INHALATION SCH ×4 (07:55→20:15)
[2019-01-03] MEDS: ONDANSETRON 4 MG/2 ML VIAL IVP PRN (08:08)
[2019-01-03] MEDS: AMMONIUM LACTATE 12% LOTION 225 GM BTL TOPICAL SCH ×2 (11:11→20:39)
[2019-01-03] MEDS: NYSTATIN 100,000 UNIT/GM POWD 15 GM TOPICAL SCH ×3 (11:11→20:46)
[2019-01-03 11:52] LABS: Glucose,Whole Blood 393 mg/dL (75-99)
[2019-01-03 17:15] LABS: Glucose,Whole Blood 453 mg/dL (75-99)
[2019-01-03 20:33] LABS: Glucose,Whole Blood 437 mg/dL (75-99)
[2019-01-03 20:33] LABS: Glucose,Whole Blood 421 mg/dL (75-99)
[2019-01-03] MEDS: INSULIN DETEMIR (LEVEMIR) 100 UNIT/ML SYR SQ SCH (20:38)
[2019-01-03] MEDS: MONTELUKAST 10 MG TAB PO SCH (20:39)
[2019-01-03] MEDS: LATANOPROST 0.005% OPHTH DROPS 2.5 ML BTL BOTH EYES SCH (20:40)
[2019-01-03] MEDS: TERCONAZOLE 0.8% VAGINAL CREAM 20 GM TUBE VAGINAL SCH (20:41)
[2019-01-04] MEDS: methylPREDNISolone SOD SUCCI 125 MG/2 ML VIAL IV SCH ×4 (00:33→17:09)
[2019-01-04] MEDS: oxyCODONE-APAP 7.5-325MG 1 EACH TAB PO PRN ×3 (00:34→17:15)
[2019-01-04 07:11] LABS: Glucose,Whole Blood 455 mg/dL (75-99)
[2019-01-04] MEDS: ONDANSETRON 4 MG/2 ML VIAL IVP PRN ×2 (07:40→20:54)
[2019-01-04] MEDS: NYSTATIN 100,000 UNIT/ML SUSP 500,000 UNIT/5 ML CUP PO SCH ×4 (07:40→20:39)
[2019-01-04] MEDS: INSULIN REGULAR 100 UNIT/ML VIAL SQ SCH ×3 (07:40→17:50)
[2019-01-04] MEDS: amLODIPine 5 MG TAB PO SCH ×2 (07:41→20:40)
[2019-01-04] MEDS: GABAPENTIN 300 MG CAP PO SCH ×4 (07:41→20:40)
[2019-01-04] MEDS: DOCUSATE 100 MG CAP PO SCH (07:41)
[2019-01-04] MEDS: FLUCONAZOLE 100 MG TAB PO SCH (07:41)
[2019-01-04] MEDS: DICYCLOMINE 10 MG CAP PO SCH ×2 (07:41→20:40)
[2019-01-04] MEDS: INSULIN ASPART (NovoLOG) 100 UNIT/ML VIAL SQ SCH ×4 (07:41→21:01)
[2019-01-04] MEDS: glipiZIDE 10 MG TAB PO SCH ×2 (07:41→17:09)
[2019-01-04] MEDS: ALPRAZolam 1 MG TAB PO SCH ×2 (07:41→20:40)
[2019-01-04] MEDS: metFORMIN 500 MG TAB PO SCH ×2 (07:42→20:40)
[2019-01-04] MEDS: PANTOPRAZOLE 40 MG TABLET PO SCH (07:42)
[2019-01-04] MEDS: TRIAMTERENE-HCTZ 75-50MG 1 EACH TAB PO SCH (07:42)
[2019-01-04] MEDS: AMMONIUM LACTATE 12% LOTION 225 GM BTL TOPICAL SCH ×2 (07:47→20:41)
[2019-01-04] MEDS: NYSTATIN 100,000 UNIT/GM POWD 15 GM TOPICAL SCH ×3 (07:47→20:42)
[2019-01-04] MEDS: IPRATROPIUM-ALBUTEROL 3 ML NEB INHALATION SCH ×4 (09:15→20:22)
--- NOTE | 2019-01-04 09:37 | HP ---
HISTORY AND PHYSICAL DATE OF SERVICE: 01/03/2019 58-year-old white female smoking and nicotine addiction, came to the hospital for worsening wheeze, coughing, shortness of breath with sputum production, extensive thrush and chest tightness. She is admitted with respiratory distress, failing outpatient treatments. PAST MEDICAL HISTORY: Negative except for severe ventral hernias, severe arthritis in multiple joints, severe degenerative disk disease, liver disease, osteoarthritis, diabetes mellitus, asthma, GERD, dyslipidemia, hypertension, possible environmental toxin exposure due to multiple feces infected bags of clothes recently in her house. She has a history of diverticulitis, diverticulosis, bowel resection, colostomy reversal, poor healing, avascular necrosis of bilateral hips and chronic tendinitis, adrenal fatty tumor, one compression fracture, De Quervain disease of the wrist, renal stones, ventral hernias, neuropathy in her arms, appendectomy, bowel surgery, orthopedic surgery, multiple surgery hardwares, history of claustrophobia. Mother had history of malignant hyperthermia. FAMILY HISTORY: Mother with cancer, coronary artery disease, myocardial infarction, hypothyroidism. Mother of lung cancer. Father congestive heart failure, diabetes mellitus, DVT, pulmonary embolism. HOME MEDICATIONS: 1. Singulair. 2. Maxzide. 3. Protonix. 4. Fluticasone. 5. Tuojeo. 6. Colace. 7. ProAir HFA. 8. Albuterol nebulizer. 9. Xanax. 10.Imodium. 11.Bentyl for IBS. 12.Neurontin for neuropathy, 300 q.i.d. 13.Humulin R 10 units subcu t.i.d. 14.Glucotrol 10 mg b.i.d. 15.Oxymetazoline topically b.i.d. 16.Metformin 1000 b.i.d. 17.Percocet t.i.d. 18.Levaquin 250 q24 hours. 19.Prednisone 10 mg as directed. 20.Norvasc 5 mg b.i.d. ALLERGIES: ADHESIVES, ASPARAGUS, ASPIRIN, ROCEPHIN, KEFLEX, PENICILLIN, PERFUME, DUST. Temperature 98, pulse 88, respiratory rate is 16 to 18, blood pressure 130s over 60s, oxygen 94% on room air. HEENT: Normocephalic, atraumatic. Pupils equal, round, reactive to light and accommodation. Lungs show scattered wheeze and rhonchi x4. ENT shows large thrush. She wears glasses. Negative conjunctival icterus. She is distended. She has ventral hernias throughout the abdomen, worse on the left side. Old scars in the mid abdomen. NEUROLOGIC: Cranial nerves intact. Strength is poor bilateral extremities. PSYCH: Alert and oriented x3. ASSESSMENT: 1. Chronic obstructive pulmonary disease exacerbation. 2. Extensive pharyngeal thrush. 3. Type 2 diabetes mellitus. 4. Chronic pain syndrome. 5. Chronic persistent asthma. IV steroids, breathing treatments, IV Diflucan, repeat chest x-ray. MMODL / IJN: [id number] /
--- NOTE | 2019-01-04 09:54 | PN ---
PROGRESS NOTE SUBJECTIVE: 58-year-old white female with vaginal ulcer. She is seen by [facility] who ordered some Terazol cream. She is also on breathing medications for COPD/asthma exacerbation. Her thrush is improved with Diflucan orally and IV. CARDIOVASCULAR: S1, S2. LUNGS: Shows scattered wheeze and rhonchi, but improved. HEMATOLOGY: Negative Homans. ASSESSMENT: 1. Vaginal candidiasis. 2. Chronic obstructive pulmonary disease/asthma exacerbation. 3. Thrush. Continue with current treatments. Follow up in the next 24-48 hours. Possible discharge on oral steroids and updraft treatments. Continue on thrush medication and vaginal medication. MMODL / IJN: [id number] /
[2019-01-04] MEDS ORDERED: metroNIDAZOLE-NS PMX 500 MG in SALINE 1 100ML.BAG IVPB SCH (10:00)
--- NOTE | 2019-01-04 10:35 | P.PN ---
Subjective Progress Note Date: 01/04/19 Principal diagnosis: Acute COPD exacerbation Extensive oral pharyngeal thrush Type 2 diabetes mellitus Chronic pain syndrome Chronic persistent severe asthma 01/04/2019, patient seen eval examined during the rounds lab reviewed medications reviewed care plan discussed with the patient at length still have intermittent wheezing on fours expiration however wheezing slightly better compared to prior exam, his sputum studies revealed few gram-positive cocci in pairs and chains likely and normal respiratory ashanti currently patient on Zithromax and IV steroids breathing treatments 01/02/2019, patient seen and evaluated examined during the rounds abscess reviewed medications reviewed care plan discussed with the patient cough congestion is still present sputum is scanty now she denies any chest pain or chest tightness is present on deep breathing wheezing appears to have improved with Diflucan her swallowing functions are getting better Objective - Vital Signs Vital signs: Vital Signs Temp 98.3 F 01/04/19 04:30 Pulse 82 01/04/19 09:35 Resp 20 01/04/19 04:30 BP 129/68 01/04/19 04:30 Pulse Ox 96 01/04/19 04:30 Intake & Output 01/03/19 01/04/19 01/04/19 18:59 06:59 18:59 Intake Total 770 600 480 Output Total 1400 Balance 770 -800 480 Intake: Oral 770 600 480 Output: Urine 1400 Other: Voiding Method Toilet # Voids 2 2 # Bowel Movements 0 - Exam - Constitutional General appearance: average body habitus, disheveled, mild distress - EENT Extensive thrush involving the tongue as well as posterior pharynx Eyes: EOMI, PERRLA, poor dentition Ears: bilateral: normal - Neck Carotids: bilateral: upstroke normal Thyroid: bilateral: normal size - Respiratory Respiratory: bilateral: wheezing - Cardiovascular Rhythm: regular Heart sounds: normal: S1, S2 - Gastrointestinal General gastrointestinal: distended, soft - Neurologic Neurologic: CNII-XII intact - Musculoskeletal Musculoskeletal: gait normal, generalized weakness, strength equal bilaterally - Psychiatric Psychiatric: A&O x's 3, appropriate affect, intact judgment & insight - Labs CBC & Chem 7: 01/01/19 17:07 01/01/19 17:07 Labs: Abnormal Lab Results - Last 24 Hours (Table) 01/03/19 01/03/19 01/03/19 Range/Units 11:50 17:13 20:26 POC Glucose (mg/dL) 393 H 453 H 421 H (75-99) mg/dL 01/03/19 01/04/19 Range/Units 20:28 07:07 POC Glucose (mg/dL) 437 H 455 H (75-99) mg/dL Microbiology - Last 24 Hours (Table) 01/03/19 10:00 Gram Stain - Preliminary Sputum Sputum Culture - Preliminary Assessment and Plan Assessment: Acute COPD exacerbation Tracheobronchitis Extensive oral pharyngeal thrush Type 2 diabetes mellitus Chronic pain syndrome Chronic persistent severe asthma Plan: IV steroids Breathing treatments IV Diflucan Reviewed chest x-ray, note is made of sclerotic process in right humerus likely infarct, will observe her closely Follow-up on sputum studies if any positive culture seen may need to adjust antibiotics Further recommendations pending plan of care as per clinical response of the patient Time with Patient: Greater than 30
[2019-01-04] MEDS: AZITHROMYCIN 500 MG TAB PO SCH (11:11)
[2019-01-04 11:57] LABS: Glucose,Whole Blood 370 mg/dL (75-99)
[2019-01-04] MEDS: metroNIDAZOLE 500 MG TAB PO SCH ×2 (17:09→20:40)
[2019-01-04 17:24] LABS: Glucose,Whole Blood 342 mg/dL (75-99)
[2019-01-04] MEDS: MONTELUKAST 10 MG TAB PO SCH (20:40)
[2019-01-04] MEDS: TERCONAZOLE 0.8% VAGINAL CREAM 20 GM TUBE VAGINAL SCH (20:41)
[2019-01-04] MEDS: LATANOPROST 0.005% OPHTH DROPS 2.5 ML BTL BOTH EYES SCH (20:41)
[2019-01-04 20:54] LABS: Glucose,Whole Blood 380 mg/dL (75-99)
[2019-01-04] MEDS: INSULIN DETEMIR (LEVEMIR) 100 UNIT/ML SYR SQ SCH (20:56)
[2019-01-05] MEDS: oxyCODONE-APAP 7.5-325MG 1 EACH TAB PO PRN ×2 (02:36→11:58)
[2019-01-05 06:56] LABS: Glucose,Whole Blood 406 mg/dL (75-99)
[2019-01-05] MEDS: methylPREDNISolone SOD SUCCI 125 MG/2 ML VIAL IV SCH ×2 (07:25→16:28)
[2019-01-05] MEDS: INSULIN ASPART (NovoLOG) 100 UNIT/ML VIAL SQ SCH ×3 (07:26→17:54)
[2019-01-05] MEDS: INSULIN REGULAR 100 UNIT/ML VIAL SQ SCH ×3 (07:27→17:54)
[2019-01-05] MEDS: DICYCLOMINE 10 MG CAP PO SCH (07:29)
[2019-01-05] MEDS: AZITHROMYCIN 500 MG TAB PO SCH (07:29)
[2019-01-05] MEDS: glipiZIDE 10 MG TAB PO SCH ×2 (07:29→17:53)
[2019-01-05] MEDS: metroNIDAZOLE 500 MG TAB PO SCH ×2 (07:29→16:27)
[2019-01-05] MEDS: metFORMIN 500 MG TAB PO SCH (07:29)
[2019-01-05] MEDS: PANTOPRAZOLE 40 MG TABLET PO SCH (07:30)
[2019-01-05] MEDS: ALPRAZolam 1 MG TAB PO SCH (07:30)
[2019-01-05] MEDS: DOCUSATE 100 MG CAP PO SCH (07:30)
[2019-01-05] MEDS: NYSTATIN 100,000 UNIT/ML SUSP 500,000 UNIT/5 ML CUP PO SCH ×3 (07:30→17:54)
[2019-01-05] MEDS: FLUCONAZOLE 100 MG TAB PO SCH (07:30)
[2019-01-05] MEDS: GABAPENTIN 300 MG CAP PO SCH ×3 (07:30→17:53)
[2019-01-05] MEDS: amLODIPine 5 MG TAB PO SCH (07:30)
[2019-01-05] MEDS: TRIAMTERENE-HCTZ 75-50MG 1 EACH TAB PO SCH (07:31)
[2019-01-05] MEDS: NYSTATIN 100,000 UNIT/GM POWD 15 GM TOPICAL SCH ×2 (07:31→16:28)
[2019-01-05] MEDS: IPRATROPIUM-ALBUTEROL 3 ML NEB INHALATION SCH ×3 (09:38→16:19)
[2019-01-05 11:22] LABS: Glucose,Whole Blood 302 mg/dL (75-99)
[2019-01-05] MEDS: AMMONIUM LACTATE 12% LOTION 225 GM BTL TOPICAL SCH (11:59)
[2019-01-05 12:48] VITALS: BP 151/80; PULSE 87; RESP 14; TEMP 98.3
[2019-01-05 17:40] LABS: Glucose,Whole Blood 370 mg/dL (75-99)
--- NOTE | 2019-01-21 05:54 | DS ---
DISCHARGE SUMMARY DATE OF ADMISSION: 01/01/2019 DATE OF DISCHARGE: 01/05/2019 MEDICATIONS: 1. Singulair 10 mg daily. 2. Maxzide 75/50 one tab daily. 3. Protonix 40 mg daily. 4. Fluticasone nasal spray 2 sprays each nostril daily. 5. Toujeo 35 units at night. 6. Albuterol 2 puffs q.4 hours p.r.n. 7. Colace 100 mg daily. 8. Xanax 1 mg q.12 hours. 9. Humulin R 10 units subcu a.c. t.i.d. 10.Ammonium lactate, Lac-Hydrin 12% lotion topically b.i.d. 11.Bentyl 10 mg b.i.d. 12.Percocet 7.5 t.i.d. 13.Metformin 1000 b.i.d. 14.Glucotrol 10 mg a.c. b.i.d. 15.Neurontin 300 q.i.d. 16.Oxymetazoline topically b.i.d. 17.Amlodipine 5 mg b.i.d.. 18.Latanoprost eye drops daily in both eyes 1 drop. The patient came in with tracheobronchitis, possible pneumonia, COPD exacerbation, was given IV steroids for multiple days, IV antibiotics. The patient slowly improved with her breathing over the following 4 to 5 days. Oropharyngeal thrush was treated with IV Diflucan, nystatin oral. Slowly improved over the next few days. Pulmonology cleared her for discharge. She was to follow up as outpatient. MMODL / IJN: [id number] /
== END 2019-01-05 19:50 | disposition home or self-care (01) ==
LOC: INTOOBSV 14:47 → 4MS4W 14:47
PROVIDERS: ADMIT Family Medicine; ATTEND Family Medicine
DX: J44.1 Chronic obstructive pulmonary disease with (acute) exacerbation (principal); J45.51 Severe persistent asthma with (acute) exacerbation; G89.4 Chronic pain syndrome; B37.0 Candidal stomatitis; E11.42 Type 2 diabetes mellitus with diabetic polyneuropathy; N76.5 Ulceration of vagina; Z78.0 Asymptomatic menopausal state; B37.3 Candidiasis of vulva and vagina; K58.9 Irritable bowel syndrome, unspecified; K21.9 Gastro-esophageal reflux disease without esophagitis; I10 Essential (primary) hypertension; E78.5 Hyperlipidemia, unspecified; M19.90 Unspecified osteoarthritis, unspecified site; K76.9 Liver disease, unspecified; H26.9 Unspecified cataract; M87.88 Other osteonecrosis, other site; M47.817 Spondylosis without myelopathy or radiculopathy, lumbosacral region; H40.9 Unspecified glaucoma; E27.9 Disorder of adrenal gland, unspecified; F17.200 Nicotine dependence, unspecified, uncomplicated; M65.4 Radial styloid tenosynovitis [de Quervain]; F40.240 Claustrophobia; Z79.4 Long term (current) use of insulin; Z79.899 Other long term (current) drug therapy; Z88.0 Allergy status to penicillin; Z88.1 Allergy status to other antibiotic agents; Z91.018 Allergy to other foods; Z91.048 Other nonmedicinal substance allergy status; Z96.641 Presence of right artificial hip joint; Z87.01 Personal history of pneumonia (recurrent); Z87.19 Personal history of other diseases of the digestive system; Z90.49 Acquired absence of other specified parts of digestive tract; Z87.442 Personal history of urinary calculi; Z87.11 Personal history of peptic ulcer disease; Z86.718 Personal history of other venous thrombosis and embolism; Z98.1 Arthrodesis status; Z87.81 Personal history of (healed) traumatic fracture; Z90.79 Acquired absence of other genital organ(s); Z82.49 Family history of ischemic heart disease and other diseases of the circulatory system; Z80.1 Family history of malignant neoplasm of trachea, bronchus and lung; Z83.3 Family history of diabetes mellitus; Z83.2 Family history of diseases of the blood and blood-forming organs and certain disorders involving the immune mechanism; Z80.8 Family history of malignant neoplasm of other organs or systems
CPT/HCPCS: 96376 ×4; 96365; 96366; 96367; 96375 ×2; 94640 ×9; 80048; 86694; 85027; 81001; 86695; 86696; 87070; 87086; 87205; 71046; G0379; G0378 ×5; L0120; J2930 ×5; J2405 ×3; J1450 ×2

== ENCOUNTER → 2019-01-30 | Outpatient (CLI) | payer MEDICARE, OTHER ==
[2019-01-30 20:24] LABS: Anti-DNA, DS unit <1.0 IU/mL; DNA Double-Stranded NEGATIVE (NEGATIVE)
[2019-02-02 13:50] LABS: APTT 36 Sec(s) (<43); Dilute Russell Viper Venom 40 Sec(s) (<44)
== END | disposition home or self-care (01) ==
LOC: LABWHC1 12:58
PROVIDERS: ATTEND Family Medicine
DX: I10 Essential (primary) hypertension (principal); Z79.899 Other long term (current) drug therapy
CPT/HCPCS: 36415; 85613; 85730; 86038; 86225; 86235; 86431

== ENCOUNTER → 2019-02-11 | Outpatient (CLI) | payer MEDICARE, OTHER ==
--- NOTE | 2019-02-11 11:55 | CT ---
EXAMINATION TYPE: CT chest w con DATE OF EXAM: 02/11/2019 COMPARISON: Chest x-ray 01/01/2019 HISTORY: Dyspnea CT DLP: 694.10 mGycm Automated exposure control for dose reduction was used. CONTRAST: CT scan of the chest is performed with IV Contrast, patient injected with 100 ml mL of Isovue 300. FINDINGS: LUNGS: The lungs are grossly clear, there is no concerning parenchymal mass or nodule identified. T here is no pleural effusion or pneumothorax seen. The tracheobronchial tree is patent. MEDIASTINUM: There are no greater than 1 cm hilar or mediastinal lymph nodes. No pericardial effusi on is seen. AORTA: No additional significant abnormality is seen. There are atherosclerotic changes at the super aortic branch vessel origins, within the thoracic aorta. OTHER: 3 cm left adrenal mass is incidentally noted. Liver shows low attenuation possibly due to hep atic steatosis. There is thoracic spondylosis. Superior endplate of L1 show some depression, postop c hanges noted to the lower cervical spine IMPRESSION: No evident lung abnormality. Left adrenal mass may be further characterized with MRI or consider short interval follow-up to assess for stability. Hepatic steatosis.
== END | disposition home or self-care (01) ==
LOC: RADCTMAIN 09:46
PROVIDERS: ATTEND Family Medicine
DX: R06.00 Dyspnea, unspecified (principal)
CPT/HCPCS: 82565; 84520; 71260; 36415; Q9967

== ENCOUNTER → 2019-09-04 | Outpatient (CLI) | payer MEDICARE, OTHER ==
--- NOTE | 2019-09-04 10:31 | MR ---
EXAMINATION TYPE: MR brain wo/w con DATE OF EXAM: 09/04/2019 COMPARISON: None HISTORY: Disturbance of gait, weakness and numbness TECHNIQUE: Multiplanar, multisequence images of the brain and brainstem is performed without and with IV contras t, utilizing 9.5 mL intravenous Gadavist . FINDINGS: Diffusion weighted images demonstrate no evidence of a recent infarct or other diffusion ab normality. There is mild diffuse confluent abnormal signal surrounding the periventricular white matter. There a re scattered focal areas of abnormal signal seen bilaterally. Findings nonspecific but most typical r emote microvascular ischemia. Midline structures demonstrate normal morphology. The craniocervical junction appears within normal limits. Post contrast images demonstrate no abnormal enhancement. The dural venous sinuses appear p atent. Hyperostosis of the calvarium noted. Abnormal signal the basal ganglia could represent calcification or remote coronary infarct. IMPRESSION: 1. Degenerative and nonspecific white matter changes most typical remote microvascular ischemia
== END | disposition home or self-care (01) ==
LOC: RADMRIMAIN 08:29
PROVIDERS: ATTEND Family Medicine
DX: G31.89 Other specified degenerative diseases of nervous system (principal); I67.82 Cerebral ischemia
CPT/HCPCS: 70553; A9585

== ENCOUNTER → 2020-07-25 | Outpatient (CLI) | payer MEDICARE, OTHER ==
--- NOTE | 2020-07-25 12:59 | CT ---
EXAMINATION TYPE: CT abdomen pelvis wo con DATE OF EXAM: 07/25/2020 HISTORY: Pain, distention CT DLP: 1071.1 mGycm. Automated Exposure Control for Dose Reduction was Utilized. TECHNIQUE: CT scan of the abdomen and pelvis is performed with oral but without IV contrast. COMPARISON: CT abdomen and pelvis November 02, 2017 FINDINGS: Within the limitations of a non-contrast study, the following observations are made. LUNG BASES: No significant abnormality is appreciated. LIVER/GB: Liver remains diffusely low dense consistent with diffuse fatty infiltration. Contracted ga llbladder with tiny intraluminal gallstones redemonstrated. PANCREAS: No significant abnormality is seen. SPLEEN: No significant abnormality is seen. ADRENALS: Stable 3.3 cm low dense left adrenal lesion favoring benign etiology given interval stabili ty. KIDNEYS: Cortical thinning in both kidneys. There are simple appearing 2.3 cm thin-walled cyst latera lly right kidney slightly increased since size from 2018 CT. No hydronephrosis seen bilaterally. BOWEL: The oral contrast does not reach level of distal ileal loops making evaluation of distal wall suboptimal. There is no suspicious small or large bowel dilatation. Postsurgical change at level of s igmoid colon: 49 is noted. Mild focal fecal prominence at this level. There is overlying ventral wall midline scarring with eventration of bowel loops up to level of scar. No definitive hernia defect id entified. Fall nearly extends to skin surface. No significant change from prior. GENITAL ORGANS: Uterus is suspected surgically absent as it is not seen scattered bilateral pelvic ph leboliths. Remnant left ovary is identified. Remnant right ovary is suspected. LYMPH NODES: No new greater than 1cm abdominal or pelvic lymph nodes are appreciated. OSSEOUS STRUCTURES: Metallic artifact from total right hip arthroplasty causes streak artifact limiti ng evaluation of pelvic structures. Spine is straightened on sagittal images. Multilevel spurring in the thoracic spine. OTHER: No significant additional abnormality is seen. IMPRESSION: No new ascites. No bowel obstruction. Continued ventral wall eventration along surgical i ncision, no new hernia defect. No significant change from 2018 CT.
== END | disposition home or self-care (01) ==
LOC: RADCTMAIN 10:48
PROVIDERS: ATTEND Family Medicine
DX: K63.89 Other specified diseases of intestine (principal)
CPT/HCPCS: 74176

== ENCOUNTER → 2020-09-23 | Outpatient (CLI) | payer MEDICARE, OTHER ==
--- NOTE | 2020-09-23 13:08 | CT ---
EXAMINATION TYPE: CT abdomen pelvis w con DATE OF EXAM: 09/23/2020 COMPARISON: 07/25/2020 INDICATION: Pain, distention, multiple hernias DLP: 1815 mGycm, Automated exposure control for dose reduction was used. CONTRAST: 100 mL of Isovue 300. Study performed with Oral Contrast TECHNIQUE: Axial images were obtained from above the diaphragm to the pubic rami in the axial plane a t 5 mm thick sections. Reconstructed images are reviewed on the computer in the coronal plane. FINDINGS: Limited CT sections are obtained the lung bases. The lung bases are clear. CT ABDOMEN: Anterior abdominal wall hernia containing multiple loops of small bowel and colon are pre sent. This extends into the anterior upper pelvis. No obstruction is evident. Liver: Mild fatty infiltration of liver. Some focal sparing appears to be along the anterolateral rig ht mid lobe. Spleen: Normal Pancreas: Atrophic Adrenal glands: Left adrenal gland is nodular measuring 3 cm. This has increased from 2.8 cm.. Right adrenal gland appears normal. Gallbladder: Normal Kidneys: No masses are evident. No hydronephrosis is present. There is a 2.8 cm this measuring 12 H ounsfield units lateral right kidney. There is an inferior pole right renal cyst measuring 1.6 cm and 17 Hounsfield units. Delayed images were obtained through the kidneys, which remain unremarkable. Aorta: Vascular calcification is within the aorta. Inferior vena cava: Normal. CT PELVIS: Right hip prosthesis causes limitation in the lower pelvis evaluation. Loops of bowel within the abdomen and pelvis are normal. There are loops of bowel which are incom pletely distended or lack oral contrast limiting their evaluation. Appendix: Not identified. No suspicious dilated tubular structure or inflammatory changes are evident . Urinary bladder: Normal as visualized. Genitourinary structures: Uterus and ovaries are not identified. Osseous structures: No suspicious lytic or sclerotic lesions are evident. IMPRESSIONS: 1. Enlarging nodular density within the left adrenal gland. Workup for metastatic disease is recomme nded. Dynamic CT with contrast could be utilized to evaluate this. MRI could be an alternative imagin g modality. 2. Bilateral renal cysts. 3. Mild fatty traditional liver
== END | disposition home or self-care (01) ==
LOC: RADCTMAIN 10:15
PROVIDERS: ATTEND Family Medicine
DX: K76.0 Fatty (change of) liver, not elsewhere classified (principal); N28.1 Cyst of kidney, acquired
CPT/HCPCS: 82565; 84520; 74177; 36415; Q9967

== ENCOUNTER → 2020-12-28 | Outpatient (CLI) | payer MEDICARE, OTHER ==
--- NOTE | 2020-12-28 16:16 | MR ---
EXAMINATION TYPE: MR abdomen wo/w con DATE OF EXAM: 12/28/2020 COMPARISON: Prior CT September 23, 2020 and older CTs including adrenal gland protocol CT April 08, 2015. HISTORY: Disorder of adrenal gland CONTRAST: Standard multiplanar, multisequence MRI departmental protocol images were obtained without contrast a nd with 10 mL intravenous Gadavist gadolinium contrast. Imaging performed of the abdomen focusing an d bilateral adrenal glands. FINDINGS: Adrenal glands: Right adrenal gland remains within normal limits. Stable in size from 2016 there is 3 .2 x 2.9 x 3.4 cm left adrenal mass with diffuse signal dropout consistent with a benign lipid rich a denoma. Other: Lung bases remain clear. Diffuse signal dropout in the liver consistent with known diffuse fat ty infiltration. Contracted gallbladder redemonstrated. No biliary dilatation. Spleen and pancreas ap pear within normal limits. Some cortical thinning and scattered small simple benign thin-walled cysts throughout both kidneys consistent with product of chronic medical renal disease. No suspicious small or large bowel dilatation. Eventration of the mesenteric fat and bowel loops in t he midline of the mid abdomen at site of prior vertical scar is redemonstrated. Osseous structures re demonstrate mild height loss along the superior L1 endplate. IMPRESSION: Stable 3.4 cm benign left lipid rich adenoma not significantly changed from 2016 CT.
== END | disposition home or self-care (01) ==
LOC: RADMRIMAIN 06:56
PROVIDERS: ATTEND Family Medicine
DX: D35.02 Benign neoplasm of left adrenal gland (principal)
CPT/HCPCS: 74183; A9585